=== PATIENT | female | born 1960 | race Caucasian/White ===

== ENCOUNTER 2020-10-07 08:16 | Outpatient (CLI) | payer OTHER, SELFPAY ==
[2020-10-07 08:28] LABS: Basophils Absolute Auto 0.1 K/mm3 (0.0-0.1); Basophils Percent Auto 1.1 % (0.2-1.2); Eosinophils Absolute Auto 0.3 K/mm3 (0-0.3); Eosinophils Percent Auto 4.2 % (0-4.4); Hematocrit 40.9 % (37.0-47.0); Hemoglobin 13.3 g/dL (12.0-15.0); Immature Granulocyte Absolute 0.03 K/mm3 (0.00-0.031); Immature Granulocyte Percent A 0.4 % (0-0.5); Lymphocytes Absolute Auto 1.77 K/mm3 (0.9-3.2); Lymphocytes Percent Auto 22.4 % (18.3-44.2); Mean Corpuscular HGB Conc 32.5 g/dl (32-36); Mean Corpuscular Hemoglobin 29.1 pg (26-34); Mean Corpuscular Volume 89.5 fl (80-100); Mean Platelet Volume 9.5 fl (7.4-10.4); Monocytes Absolute Auto 0.7 K/mm3 (0.1-0.6); Monocytes Percent Auto 8.2 % (2.6-8.5); Neutrophils Percent Auto 63.7 % (45.5-73.1); Platelet Count Result 261 k/mm3 (150-375); Red Blood Count 4.57 M/mm3 (4.2-5.4); Red Cell Distribution Width 13.2 % (11.5-14.5); White Blood Count 7.9 K/mm3 (4.5-10.0)
[2020-10-07 08:44] LABS: CRP 2.4 mg/dL (<1.0)
[2020-10-07 08:53] LABS: Erythrocyte Sedimentation Rate 48 mm/hr (0-20)
[2020-10-07 16:00] LABS: Uric Acid 5.6 mg/dL (2.5-7.5)
[2020-10-07 16:07] LABS: Rheumatoid Factor < 8.6 IU/ML (<12)
== END 2020-10-07 08:17 | disposition home or self-care (01) ==
PROVIDERS: PCP Internal Medicine; Visit Provider Orthopaedic Surgery
DX: M17.0 Bilateral primary osteoarthritis of knee (principal); M06.9 Rheumatoid arthritis, unspecified
CPT/HCPCS: 36415; 84550; 85025; 85652; 86038; 86140; 86430

== ENCOUNTER 2020-10-14 11:59 | Outpatient (CLI) | payer OTHER, SELFPAY ==
--- NOTE | ~2020-10-14 | US_ITS ---
EXAMINATION: US knee asp inj w image LT DATE: 10/14/2020 14:00 INDICATION: Left knee pain TECHNIQUE: The procedure including the risks and benefits was discussed with the patient. Risks discu ssed included bleeding and infection. The patient understood the risks and agreed to proceed. The sk in overlying the suprapatellar pouch of the left knee was prepped and draped in usual sterile fashion . Anesthetic was administered with 1% lidocaine subcutaneously. An 18-gauge spinal needle was advanc ed under continuous ultrasound observation into the hypoechoic suprapatellar pouch. 1.5 mL of clear y ellow fluid was aspirated. The needle was removed and the entry site was cleaned and dressed. Post procedure ultrasound demonstrated no hemorrhage. FINDINGS: Ultrasound images demonstrate minimal fluid in the suprapatellar pouch with successful aspi ration of 1.5 mL for studies as ordered by the referring physician. IMPRESSION: 1. Successful Ultrasound-guided left knee arthrocentesis. Reviewed, dictated and finalized at location A.
[2020-10-14 17:21] LABS: Appearance Synovial Fluid Hazy (Clear); Color Synovial Fluid Yellow (Colorless); Neutrophils Synovial Fluid 2 % (0-25); Nucleated Cell Synovial Fluid 694 /uL (0-200); RBC Synovial Fluid 887 /uL (0-0); Source Synovial Fluid Synovial fluid
[2020-10-14 17:22] LABS: Crystals Synovial Fluid None Seen (None Seen); Lymphocytes Synovial Fluid 93 %; Macrophages Synovial Fluid 5 %
== END 2020-10-14 12:00 | disposition home or self-care (01) ==
LOC: ANHIMG 12:03
PROVIDERS: PCP Internal Medicine; Visit Provider Orthopaedic Surgery
DX: M25.562 Pain in left knee (principal); G89.29 Other chronic pain; Z96.652 Presence of left artificial knee joint
CPT/HCPCS: 20611; 87070; 87075; 87205; 88108; 89051; 89060

== ENCOUNTER 2021-04-21 07:53 | Outpatient (CLI) | payer OTHER, SELFPAY ==
--- NOTE | 2021-04-21 08:00 | ECG_ITS ---
Measurements Intervals [place] Rate: 66 P: 46 OK: 128 QRS: 58 QRSD: 88 T: 34 QT: 369 QTc: 389 Interpretive Statements SINUS RHYTHM BORDERLINE R WAVE PROGRESSION, ANTERIOR LEADS BASELINE ARTIFACT- I, II, AVR BORDERLINE ECG Electronically Signed On 04-21-2021 8:22:12 CDT by Sigifredo Valentin D.O.
== END 2021-04-21 07:54 | disposition home or self-care (01) ==
LOC: ANHSURGERY 07:58
PROVIDERS: PCP Internal Medicine; Visit Provider Orthopaedic Surgery
DX: I10 Essential (primary) hypertension (principal); Z01.818 Encounter for other preprocedural examination; R94.31 Abnormal electrocardiogram [ECG] [EKG]
CPT/HCPCS: 93005

== ENCOUNTER 2021-04-25 00:34 | Day surgery (SDC) | payer OTHER, SELFPAY ==
[2021-04-19 14:42] VITALS: BMI 34.8
--- NOTE | 2021-04-22 15:19 | WPDANESEPPF ---
Anes - Initial Pre Proc Eval Procedure: Operation Date: 04/25/21 13:30 Proposed Procedures p Right Thumb Carpal Metacarpal Arthroplasty - Ankit Dutton MD Date/Time: 04/22/21 15:19 Surgeon: Ankit Dutton MD Pre Op Diagnosis: right thumb cmc arthritis Patient Data Age: 60 Gender: F Height: 1.64 m Weight: 93.44 kg Allergies Allergy/AdvReac Type Severity Reaction Status Date / Time adhesive tape Allergy Intermediate Blister Verified 04/25/21 11:05 codeine Allergy Intermediate Hives Verified 04/25/21 11:05 Sulfa (Sulfonamide Allergy Intermediate Rash Verified 04/25/21 11:05 Antibiotics) Home Medications Medication Instructions Recorded Confirmed Type lisinopril 10 mg tablet 10 mg PO HS 08/13/19 04/25/21 History rosuvastatin 5 mg tablet 5 mg PO HS 08/13/19 04/25/21 History Lactobacillus acidophilus 100 mg 100 mg PO HS 03/15/21 04/25/21 History (1 billion cell) capsule allopurinol 100 mg tablet 100 mg PO DAILY tablet 03/15/21 04/25/21 History cannabidiol 100 mg/mL oral solution 100 mg PO HS 03/15/21 04/25/21 History cholecalciferol (vitamin D3) 50 50 mcg PO HS 03/15/21 04/25/21 History mcg (2,000 unit) capsule fluticasone propionate 50 1 spray INTRANASAL DAILY 03/15/21 04/25/21 History mcg/actuation nasal spray,suspension hydroxychloroquine 200 mg tablet 200 mg PO DAILY tablet 03/15/21 04/25/21 History sertraline 100 mg tablet 100 mg PO HS tablet 03/15/21 04/25/21 History acetaminophen [Tylenol Arthritis] 650 mg PO BID 04/19/21 04/25/21 History diclofenac sodium 2 g TOPICAL QID 04/19/21 04/25/21 History omeprazole 40 mg PO DAILY 04/19/21 04/25/21 History Patient hx anesthesia problems: none Family hx anesthesia problems: none Results Review: All pre-operative results and documents have been reviewed as part of the pre-operative evaluation. [facility] Past Medical History Medical History (Updated 04/22/21 @ 15:26 by Nemesio Wilkerson MD) Anxiety Arthritis of carpometacarpal (CMC) joint of right thumb Chronic narcotic use Chronic pain Depression History of back problems History of gout History of neck problems Hypercholesterolemia Hypertension Obesity Seizure Surgical History Surgical History History of appendectomy 1968- [facility] History of section 1987,1988 History of cholecystectomy 2006 History of knee replacement 2005 L TKA- Dr. Dutton History of pelvic surgery 2017- Dr. Orourke History of shoulder surgery Left-2014 [facility] Family History Family History Mother Family history of osteoarthritis Family history of malignant neoplasm of breast in first degree relative Sibling Family history of diabetes mellitus in first degree relative Father Family history of heart disease in male family member before age 55 Hypertension Social History Social History Smoking status: Never smoker Alcohol intake: current Alcohol use details: VERY RARE Substance use: current Substance use type: marijuana Other substance usage details: CBD OIL, SMOKE Last use: 04/19/21 Living arrangements: with family Additional living arrangements comments: and son Spiritual care concerns: No Anes - Eval Final PreProcedure Day of Procedure 04/22/21 15:19 Patient weight: obese Heart: regular rate and rhythm Lungs: clear to auscultation and normal air movement Airway: Mallampati scale class II Neurological: alert and oriented Last oral intake: >/= 8 hours ASA classification: III Emergent: no Anesthetic plan: proceed Anesthesia type and monitoring: general GIVS and LMA Results Review: All pre-operative results and documents have been reviewed as part of the pre-operative evaluation. Informed Consent: The patient's anesthetic plan and its attendant risks and benefits were discussed with
[2021-04-25] VITALS (8 sets, daily range): BP systolic 114–132; BP diastolic 64–93; PULSE 71–90; RESP 12–18; TEMP 36.2–36.8; O2SAT 96–98
--- NOTE | ~2021-04-25 | XR_ITS ---
EXAMINATION: XR hand RT min 3V DATE: 04/25/2021 15:29 INDICATION: Right thumb postoperative evaluation TECHNIQUE: Posteroanterior, oblique and lateral views of the right hand were obtained. COMPARISON: 05/26/2020 FINDINGS: Fiberglas splint is seen along the radial side of the right hand and wrist which obscures fine bone a nd soft tissue detail. The trapezium has been resected with small amount of lucent postoperative gas at the resection bed and extending proximally along the radial aspect of the wrist. Alignment appears otherwise essentially anatomic. No fracture. Mild to moderate polyarticular osteoarthritis involving multiple metacarpophalangeal and interphalangeal joints. IMPRESSION: 1. Expected postoperative change of trapezial resection for first carpal metacarpal suspension arthro plasty. See procedure note for further detail. 2. Mild to moderate polyarticular osteoarthritis at multiple metacarpophalangeal and interphalangeal joints. Reviewed, dictated and finalized at location A. IMPRESSION: 1. Expected postoperative change of trapezial resection for first carpal metaca rpal suspension arthroplasty. See procedure note for further detail. 2. Mild to moderate polyarticular osteoarthritis at multiple metacarpophalangea l and interphalangeal joints.
[2021-04-25] MEDS: ACETAMINOPHEN 500 MG TABLET 1000 MG PO (11:14)
[2021-04-25] MEDS: LACTATED RINGERS 1,000 ML 30 ML IV CONT ×2 (11:26→14:56)
[2021-04-25] MEDS: KETOROLAC 15 MG/ML VIAL (*BKC) IV PUSH (11:28)
--- NOTE | 2021-04-25 11:49 | WPDHPUPDATE1 ---
History and Physical Update Update Date/Time: 04/25/21 11:49 History and Physical has been reviewed, including an updated exam of the patient. There are NO changes in the patient's condition. Risks, benefits, and alternatives have been discussed and questions answered. Patient agrees to proceed with procedure.
--- NOTE | 2021-04-25 12:32 | WPDANESPNB ---
Anes - Peripheral Nerve Block Date/Time: 04/25/21 12:32 I have discussed with the patient/family/POA the placement of a peripheral nerve block for post-operative pain management, including associated risks, benefits, complications, and side effects. Alternative methods of post-operative analgesia were detailed. Questions were solicited and answers provided to the satisfaction of the patient/family/POA. Time-Out: A pre-procedural Time-Out was completed immediately before starting the procedure and confirmed: Patient Identification, Site, Procedure, Patient Position and the Availability of Requisite Equipment. Clinical Indications: Acute post-operative pain management requested by the operative surgeon. Nerve Block Insertion Note Anes-nerve block: supraclavicular right Patient position: supine Skin prep: chlorhexidine Needle: 22 gauge, stimulating, insulated echogenic needle. Needle length: 80 mm Technique: ultrasound (in plane) Injectate: bupivacaine 0.25% with epi 5 mcg/ml (15cc) Observations: tolerated well Complications: none Procedure start time:: 1250 Procedure end time:: 1255
[2021-04-25] MEDS: ceFAZolin 2 GM/D5W 50 ML 2 GM/50 ML BAG IVPB (13:07)
--- NOTE | 2021-04-25 15:02 | P.OP_ITS ---
Procedure Note - Detailed Date of Procedure 04/25/21 Pre-op Diagnosis right thumb cmc arthritis Post-op Diagnosis same Procedure Performed Right thumb CMC suspension arthroplasty Surgeon Ankit Dutton MD Mobility Architect Manager Rodrigo Anesthesia general and regional Description of Procedure The patient was identified proper site identified. In the preop holding area the anesthesia team performed a right upper extremity block. She was then taken to the operating room transferred to the OR table placing her supine taking care to pad the torso and extremities. After general anesthetic induction and intubation, a nonsterile tourniquet was placed high on the right arm. The right upper extremity was prepped and draped in usual sterile fashion. Extremity was exsanguinated and tourniquet was inflated to 250 mmHg remaining up for approximately 73 minutes. A longitudinal incision was made over the FCR tendon curving radially at the base of the thenar musculature. Subcutaneous tissue bluntly dissected protecting neurovascular structures. A slip of the APL which inserted into the thenar musculature was released and marked for later repair. The thenar musculature was elevated up off of the carpus and the trapezium identified. While protecting the FCR, a trapeziectomy was performed. The a ulnar-sided distally-based 8 cm slip of FCR was then developed hand used to create a sling weaving the tendon slip between the FCR tendon and the APL tendon securing it to itself with 3-0 Ethibond suture. The EPL tendon was advanced on itself and also secured with 3-0 Ethibond suture seating the sling in the trapeziectomy site. This allowed the thumb to sit very nicely in a position of function. The EPB tendon was then reefed also with 3-0 Ethibond taking up the slack in that structure. The wound was irrigated with sterile antibiotic solution. The wrist capsule and thenar musculature were tacked back down with 4-0 Monocryl. The slip of the EPL was reattached to the thenar musculature with 3-0 Ethibond. The skin edges were reapproximated with 4-0 Monocryl and then 4-0 Prolene subcuticular stitch. Steri-Strips were applied. Sterile dressings applied and the tourniquet was released. Well-padded thumb spica splint was fashioned. The patient tolerated procedure well . She was awakened extubated and taken to recovery area in stable condition. There were no known intraoperative complications. Estimated blood loss was negligible. Perioperative antibiotics were administered. Estimated Blood Loss 1 Tourniquet Time 73 Drains No Packing No Pathology none sent Complications No immediate complications Condition stable Disposition PACU
[2021-04-25] MEDS: fentaNYL CITRATE INJ (*CRX) 100 MCG/2 ML VIAL 25 MCG IV PUSH ×2 (15:13→15:24)
[2021-04-25] MEDS: HYDROcodone/acetaminophen (*CRX) 5-325 MG TABLET 1 TAB PO (16:35)
== END 2021-04-25 16:45 | disposition home or self-care (01) ==
PROVIDERS: PCP Internal Medicine; Visit Provider Orthopaedic Surgery
PROC: (CPT 25447; principal; 2021-04-25 13:30)
DX: M18.11 Unilateral primary osteoarthritis of first carpometacarpal joint, right hand (principal); G89.18 Other acute postprocedural pain; I10 Essential (primary) hypertension; E78.2 Mixed hyperlipidemia; E78.00 Pure hypercholesterolemia, unspecified; E66.9 Obesity, unspecified; Z68.35 Body mass index [BMI] 35.0-35.9, adult; Z96.652 Presence of left artificial knee joint; Z88.2 Allergy status to sulfonamides
CPT/HCPCS: 25447; 64415; 73130; A9270; J0690; J1100; J1885; J2250; J2405; J2704; J3010; J7120

== ENCOUNTER 2021-04-30 16:12 | Inpatient (IN) | payer OTHER, SELFPAY ==
[2021-04-30] VITALS (12 sets, daily range): BP systolic 108–172; BP diastolic 78–110; PULSE 122–148; RESP 14–26; TEMP 36.4–36.6; O2SAT 91–100; BMI 32.3
--- NOTE | ~2021-04-30 | CT_ITS ---
EXAMINATION: CT abdomen pelvis w con DATE: 04/30/2021 18:07 INDICATION: Diffuse abdominal pain, nausea, vomiting TECHNIQUE: Computed tomography (CT) of the abdomen and pelvis was performed with 100 cc Omnipaque 350 intravenous contrast. Automated exposure control and iterative reconstruction technique were employe d. Exam dose: 1197.91 mGy-cm total exam DLP. COMPARISON: 10/25/2014 CT abdomen pelvis FINDINGS: There is mild discoid atelectasis at the middle lobe and dependent lower lobes. Normal heart size. No pericardial or pleural effusion. Small sliding hiatal hernia. Status post cholecystectomy, which likely accounts for the mild bile duct dilatation. No hepatic, spl enic, pancreatic, adrenal or renal space occupying mass lesion. No urinary tract calculus or hydrour eteronephrosis. Normal caliber of the abdominal aorta. No intraperitoneal or retroperitoneal or pelvic mass lesion o r lymphadenopathy. Fluid and liquid stool and air fluid levels of the colon and mild left colon wall thickening and maryann colic fat stranding, suggesting nonspecific colitis, possibly infectious or inflammatory. There is diverticulosis of the sigmoid colon. No bowel obstruction or intraperitoneal free air. Mild compression fracture deformities of T7 and T9. Moderate anterior wedging of L3. Degenerative changes of the thoracic and lumbar spine including severe degenerative disc disease at L3-4. IMPRESSION: Colitis Diverticulosis of sigmoid colon; no CT evidence of diverticulitis No bowel obstruction or free air Small sliding hiatal hernia Status post cholecystectomy Reviewed, dictated and finalized at Location A. Reviewed, dictated and finalized at location A.
--- NOTE | ~2021-04-30 | XR_ITS ---
XR chest 1V portable DATE: 04/30/2021 17:01 INDICATION: Sweats. Weakness. Nausea and vomiting. Hypertension. TECHNIQUE: Portable AP chest on 04/30/2021 at 1653 hours COMPARISON: 04/25/2017 portable AP chest FINDINGS: Normal heart size. Aortic arch calcification. No hilar or mediastinal enlargement. No pulmonary infiltrate or consolidation, pleural effusion or pulmonary vascular congestion or pneumo thorax. There is osteoarthritic change at both glenohumeral joints. Diffuse osteopenia. There is mild dextroscoliosis of the thoracic spine IMPRESSION: No active cardiac pulmonary disease Aortic atherosclerosis Reviewed, dictated and finalized at location A.
--- NOTE | 2021-04-30 16:43 | ECG_ITS ---
Measurements Intervals [place] Rate: 138 P: 65 RI: 129 QRS: 58 QRSD: 86 T: 57 QT: 283 QTc: 430 Interpretive Statements SINUS TACHYCARDIA VENTRICULAR PREMATURE COMPLEX BASELINE ARTIFACT- II, III, AVR, AVL, AVF, V1, V3-V6 ABNORMAL ECG Electronically Signed On 04-30-2021 20:01:35 CDT by Sigifredo Valentin D.O.
--- NOTE | 2021-04-30 16:43 | PC.NURSE ---
Pt clothes cut off per patient request.
--- NOTE | 2021-04-30 16:51 | ED.ABDPAIN ---
HPI - Abdominal Pain General Chief Complaint: Abdominal Pain Stated Complaint: ABD PAIN Time Seen by Provider: 04/30/21 16:30 Source: patient, family and RN notes reviewed Mode of arrival: wheelchair Limitations: clinical condition History of Present Illness HPI narrative: This is a 60 year old female who presents for evaluation of diffuse abdominal pain. Her is at bedside to assist with history. He states patient had right hand surgery earlier this week and she has been taking pain medication. She has been constipated and she has not had bowel movement since her surgery. Today she developed diffuse abdominal pain , and states he found patient this afternoon having multiple episodes bilious vomiting. She states she has been passing gas but no bowel movement. She denies chest pain but she has shortness of breath. She has been taking laxatives. Related Data Home Medications Medication Instructions Recorded Confirmed lisinopril 10 mg tablet 10 mg PO HS 08/13/19 04/30/21 rosuvastatin 5 mg tablet 5 mg PO HS 08/13/19 04/30/21 Lactobacillus acidophilus 100 mg 100 mg PO HS 03/15/21 04/30/21 (1 billion cell) capsule allopurinol 100 mg tablet 100 mg PO DAILY tablet 03/15/21 04/30/21 cannabidiol 100 mg/mL oral solution 100 mg PO HS 03/15/21 04/30/21 cholecalciferol (vitamin D3) 50 50 mcg PO HS 03/15/21 04/30/21 mcg (2,000 unit) capsule fluticasone propionate 50 1 spray INTRANASAL DAILY 03/15/21 04/30/21 mcg/actuation nasal spray,suspension hydroxychloroquine 200 mg tablet 200 mg PO DAILY tablet 03/15/21 04/30/21 sertraline 100 mg tablet 100 mg PO HS tablet 03/15/21 04/30/21 acetaminophen 650 mg PO BID 04/19/21 04/30/21 diclofenac sodium 2 g TOPICAL QID 04/19/21 04/30/21 omeprazole 40 mg PO DAILY 04/19/21 04/30/21 Allergies Allergy/AdvReac Type Severity Reaction Status Date / Time adhesive tape Allergy Intermediate Blister Verified 04/30/21 20:31 codeine Allergy Intermediate Hives Verified 04/30/21 20:31 Sulfa (Sulfonamide Allergy Intermediate Rash Verified 04/30/21 20:31 Antibiotics) Review of Systems Review of Systems: All systems reviewed & are unremarkable except as noted in HPI and below Constitutional: Constitutional: Denies chills, Denies fever(s) and Reports weakness Cardiovascular: Cardiovascular: Denies chest pain Respiratory: Respiratory: Denies cough and Reports dyspnea Gastrointestinal: Gastrointestinal: Reports abdominal pain, Reports constipation, Reports nausea and Reports vomiting Genitourinary: Genitourinary: Denies hematuria, Denies dysuria and Denies flank pain Neurologic: Denies headache(s) [facility] Past Medical History Medical History Anxiety Chronic narcotic use Chronic pain Depression History of back problems History of gout History of neck problems Hypercholesterolemia Hypertension Obesity Seizure Surgical History Surgical History Arthritis of carpometacarpal (CMC) joint of right thumb Right thumb CMC suspension arthroplasty April 25, 2021 History of appendectomy 1968- [facility] History of section 1987,1988 History of cholecystectomy 2006 History of knee replacement 2005 L TKA- Dr. Dutton History of pelvic surgery 2017- Dr. Orourke History of shoulder surgery Left-2014 [facility] Family History Family History Mother Family history of osteoarthritis Family history of malignant neoplasm of breast in first degree relative Sibling Family history of diabetes mellitus in first degree relative Father Family history of heart disease in male family member before age 55 Hypertension Social History Social History Smoking status: Never smoker Alcohol intake: current Alcohol use details: VERY RARE Substance
[2021-04-30] MEDS: ONDANSETRON INJ 4 MG/2 ML VIAL IV PUSH (17:07)
[2021-04-30] MEDS: LACTATED RINGERS 1,000 ML 999 ML IV CONT ×2 (17:19→17:20)
[2021-04-30 17:20] LABS: Basophils Absolute Auto 0.1 K/mm3 (0.0-0.1); Basophils Percent Auto 0.6 % (0.2-1.2); Eosinophils Absolute Auto 0.1 K/mm3 (0-0.3); Eosinophils Percent Auto 0.5 % (0-4.4); Hematocrit 54.4 % (37.0-47.0); Hemoglobin 17.7 g/dL (12.0-15.0); Immature Granulocyte Absolute 0.12 K/mm3 (0.00-0.031); Immature Granulocyte Percent A 0.6 % (0-0.5); Lymphocytes Absolute Auto 2.58 K/mm3 (0.9-3.2); Lymphocytes Percent Auto 13.2 % (18.3-44.2); Mean Corpuscular HGB Conc 32.5 g/dl (32-36); Mean Corpuscular Hemoglobin 29.8 pg (26-34); Mean Corpuscular Volume 91.7 fl (80-100); Mean Platelet Volume 10.6 fl (7.4-10.4); Monocytes Absolute Auto 0.3 K/mm3 (0.1-0.6); Monocytes Percent Auto 1.7 % (2.6-8.5); Neutrophils Absolute Auto 16.3 K/mm3 (1.3-6.7); Neutrophils Percent Auto 83.4 % (45.5-73.1); Platelet Count Result 377 k/mm3 (150-375); Red Blood Count 5.93 M/mm3 (4.2-5.4); Red Cell Distribution Width 12.9 % (11.5-14.5); White Blood Count 19.5 K/mm3 (4.5-10.0)
[2021-04-30 17:32] LABS: Ammonia < 9 umol/L (9-30); Lipase 478 U/L (23-300); Magnesium 2.8 mg/dL (1.6-2.3)
[2021-04-30 17:34] LABS: Albumin Level 4.6 g/dL (3.5-5.1); Alkaline Phosphatase 477 U/L (38-126); Anion Gap 20 mmol/L (8-16); Aspartate Amino Transferase 39 U/L (14-36); Bilirubin,Total 0.8 mg/dL (0.2-1.3); Blood Urea Nitrogen 19 mg/dL (7-17); Calcium 10.6 mg/dL (8.4-10.2); Carbon Dioxide 17 mmol/L (22-30); Chloride 103 mmol/L (98-107); Estimated CRCL calculation 37 ml/min; Estimated Glomerular Filt Rate 33; Glucose 281 mg/dL (65-110); Potassium 3.6 mmol/L (3.4-5.0); Sodium 140 mmol/L (137-145)
[2021-04-30 17:36] LABS: Lactic Acid Reflex 7.9 mmol/L (0.7-2.1)
[2021-04-30 17:37] LABS: Partial Thromboplastin Time 24.4 SECONDS (22.3-36.8); Prothrombin Time 13.1 Seconds (11.1-14.7)
[2021-04-30 17:40] LABS: Alveolar/Arterial O2 Gradient 79.3 mmHg; Base Excess ABG -9.6 mEq/l (+/-2.0); Carboxyhemoglobin 0.9 % THb (0-2.0); Fractional Inspired Oxygen 28 %; HCO3 ABG 15.7 mEq/l (22.0-26.0); Methemoglobin ABG 0.4 %THb (0-1.5); Oxygen Content ABG 21.9 %vol (16.0-22.0); Oxyhemoglobin 93.2 % THb (90.0-100.0); PCO2 ABG 33.1 mmHg (35.0-45.0); PO2 ABG 81.3 mmHg (80.0-100.0); Reduced Hemoglobin 5.5 %THb (0-5.0); Total Hemoglobin 16.7 g/dL (12.0-18.0)
[2021-04-30 17:41] LABS: Device NASAL CANNULA; Site Drawn RIGHT BRACHIAL; pH ABG 7.293 (7.350-7.450)
[2021-04-30 17:49] LABS: Alanine Aminotransferase 30 U/L (4-35); Troponin I 0.036 ng/mL (0.000-0.034)
[2021-04-30] MEDS: PROMETHAZINE HCL 25 MG/ML AMPUL 12.5 MG IV PUSH ×2 (18:27→20:24)
[2021-04-30] MEDS: SODIUM CHLORIDE 0.9% IV 1,000 ML 999 ML IV CONT (18:33)
[2021-04-30 18:34] LABS: Glucose Point of Care 192 mg/dl (65-105)
[2021-04-30 18:39] LABS: Add Urine Microscopic? YES; Appearance Urine Clear (Clear); Bilirubin Urine Negative (Negative); Blood Urine Negative (Negative); Color Urine Yellow (Yellow); Glucose Urine UA Negative (Negative); Ketones Urine Negative (Negative); Leukocyte Esterase Ur Negative LEU/UL (Negative); Mucus Urine Rare /lpf; Nitrate Urine Negative (Negative); Protein Urine 2+ mg/dL (Negative); Specific Grav Ur 1.016 (1.001-1.035); Squamous Epithelial Cell Urine Rare /hpf (Few); Urobilinogen Urine Negative mg/dL (<2.0); WBC Urine 0-3 /hpf
--- NOTE | 2021-04-30 19:25 | PC.NURSE ---
Assumed care of pt at this time. Pt alert and upright on stretcher, requesting another blanket. Pt and family updated on POC.
[2021-04-30 20:18] LABS: Reflex Lactic Acid Yes or No Add Lactic
[2021-04-30] MEDS: HYDROmorphone HCL INJ (*CRX) 1 MG/ML SYR 0.5 MG IV PUSH (20:20)
--- NOTE | 2021-04-30 20:27 | PM.IMHP ---
H&P: HPI History of Present Illness Date/Time: 04/30/21 20:27 Chief Complaint: Abdominal pain Narrative: 60-year-old female with a past medical history of rheumatoid arthritis, hypertension, hyperlipidemia and gout who presented to the ER with severe abdominal pain since the . The patient had had a right thumb suspension arthropathy performed 04/25/2021. She had been taking pain medications since the time of surgery and was subsequently constipated. She had not had a bowel movement since before her thumb surgery. Subsequently developed some abdominal distension and discomfort. Today she developed diffuse abdominal pain that acutely worsened over the last 24 hours. The pain is severe in intensity and is worse with palpation of her abdomen. The abdominal pain was accompanied by multiple episodes of bilious emesis that started today. She continues to have multiple episodes of dry heaves and vomiting in the ER. She denies any fevers or chills. Her reports that the patient had been confused earlier in the day but he feels that her confusion has resolved after IV fluids she received in the ER. She reports that she is still having flatulence. She took 4 different laxatives over the last 24 hours without improvement in her symptoms. On arrival to the ER should markedly tachycardic and had some mild tachypnea. She denies any chest pain or shortness of breath. She has not had any recent ill contacts. She has not had any recent travel. She did not receive any pre or postop antibiotics. She had had decreased appetite for the last several days. She received the [employer] COVID vaccine in August. Review of Systems Review of Systems: 12 systems were reviewed with pertinent positives and negatives per HPI. Except as documented in the HPI, all other systems were reviewed and are negative. [facility] Past Medical History Medical History (Updated 05/01/21 @ 02:36 by Grecia Mak DO) Anxiety Chronic narcotic use She reports that she has not had chronic narcotic since he October 2020 Chronic pain Depression Gout History of back problems History of neck problems Hypercholesterolemia Hypertension Obesity Seizure in childhood Surgical History Surgical History Arthritis of carpometacarpal (CMC) joint of right thumb Right thumb CMC suspension arthroplasty April 25, 2021 History of appendectomy 1968- [facility] History of section 1987,1988 History of cholecystectomy 2006 History of knee replacement 2004 L TKA- Dr. Dutton History of pelvic surgery 2017- Dr. Orourke History of shoulder surgery Left-2015 [facility] Family History Family History Mother Family history of osteoarthritis Family history of malignant neoplasm of breast in first degree relative Sibling Family history of diabetes mellitus in first degree relative Father Family history of heart disease in male family member before age 55 Hypertension Social History Social History (Updated 05/01/21 @ 02:35 by Grecia Mak DO) Social History: She lives with her of 41 years and her son. She has total of 2 sons and 1 daughter. She is a retired process improvement specialist. Code status: Full code Surrogate decision maker: Smoking status: Never smoker Alcohol intake: current Alcohol use details: VERY RARE Substance use: current Substance use type: marijuana and opiates Other substance usage details: daily Last use: 04/19/21 Additional living arrangements comments: and son Spiritual care concerns: Yes Meds Home Medications and Allergies Home Medications Medication Instructions Recorded Confirmed Type lisinopril 10 mg tablet 10 mg PO HS 08/13/19 04/25/21 History rosuvastatin 5 mg tablet 5 mg PO HS 08/13/19 04/25/21 History Lactobacillus acidophilus 100 mg 100 mg PO
--- NOTE | 2021-04-30 21:15 | PC.NURSE ---
This RN attempted to insert NG tube. 16g tube was placed in right nare with bile return, but pt did not tolerate procedure and pulled tube out before this RN was able to secure it. Pt refused 2nd attempt.
--- NOTE | 2021-04-30 21:35 | ADMGEN ---
This patient, Jodie Valentin, was admitted to Intensive Care Unit-5. Patient/family oriented to hospital policies and general routines including ID bracelet, bed and alarms, visiting hours, pain management, procedures, bathroom and other care routines, personal items, smoking policy, room service/diet, and visiting hours. Information on how to activate the Rapid Response Team has been discussed. Patient/Family are encouraged to report perceived risks to care and to ask questions if they do not understand what they are told or what they should do.
[2021-04-30] MEDS: SODIUM CHLORIDE 0.9% IV 1,000 ML 200 ML IV CONT (21:49)
[2021-04-30 22:12] LABS: Lactic Acid 3.6 mmol/L (0.7-2.1)
[2021-04-30 22:50] LABS: Troponin I 0.415 ng/mL (0.000-0.034)
[2021-05-01] VITALS (15 sets, daily range): BP systolic 119–166; BP diastolic 62–103; PULSE 114–145; RESP 12–22; TEMP 36.8–37.1; O2SAT 92–96
[2021-05-01] MEDS: SODIUM CHLORIDE 0.9% IV 1,000 ML 999 ML IV CONT (00:01)
--- NOTE | 2021-05-01 01:00 | PC.NURSE ---
Daylight Savings Time For Daylight Savings Time Ending in the Fall - Clocks are moved back. For Daylight Savings Time Beginning in the Spring - Clocks are moved ahead. For [facility], the time of change occurs at 0200 hrs. Time is taken from the room server. This entry on the patient's chart recognizes the change in time reflected during documentation. Example: 2 entries for vital signs may be charted for 0200 hrs.
[2021-05-01] MEDS: HYDROmorphone HCL INJ (*CRX) 1 MG/ML SYR IV PUSH ×3 (01:52→19:51)
[2021-05-01 03:15] LABS: Hematocrit 48.9 % (37.0-47.0); Hemoglobin 16.1 g/dL (12.0-15.0); Mean Corpuscular HGB Conc 32.9 g/dl (32-36); Mean Corpuscular Hemoglobin 30.2 pg (26-34); Mean Corpuscular Volume 91.7 fl (80-100); Mean Platelet Volume 10.5 fl (7.4-10.4); Platelet Count Result 273 k/mm3 (150-375); Red Blood Count 5.33 M/mm3 (4.2-5.4); Red Cell Distribution Width 13.4 % (11.5-14.5); White Blood Count 28.6 K/mm3 (4.5-10.0)
[2021-05-01] MEDS: SODIUM CHLORIDE 0.9% IV 1,000 ML 200 ML IV CONT (03:19)
[2021-05-01 03:32] LABS: Alanine Aminotransferase 19 U/L (4-35); Albumin Level 3.7 g/dL (3.5-5.1); Alkaline Phosphatase 386 U/L (38-126); Anion Gap 10 mmol/L (8-16); Aspartate Amino Transferase 32 U/L (14-36); Bilirubin,Total 0.5 mg/dL (0.2-1.3); Blood Urea Nitrogen 28 mg/dL (7-17); Calcium 8.5 mg/dL (8.4-10.2); Carbon Dioxide 19 mmol/L (22-30); Chloride 111 mmol/L (98-107); Estimated CRCL calculation 34 ml/min; Estimated Glomerular Filt Rate 30; Glucose 151 mg/dL (65-110); Sodium 140 mmol/L (137-145)
[2021-05-01 03:44] LABS: Lactic Acid Reflex 1.7 mmol/L (0.7-2.1)
[2021-05-01 03:56] LABS: Troponin I 0.513 ng/mL (0.000-0.034)
[2021-05-01 04:06] LABS: Band Neutrophils Percent 5 % (0-6); Lymphocytes Absolute Manual 0.85 K/mm3 (1.1-4.5); Monocytes Absolute Manual 1.14 K/mm3 (0.1-0.90); Monocytes Percent Manual 4 % (3-9); Neutrophils Absolute Manual 26.59 K/mm3 (1.7-7.2); Neutrophils Percent Manual 88 % (46-73); Total Cells Counted 100
[2021-05-01 04:07] LABS: Platelet Estimate Adequate (Adequate)
[2021-05-01] MEDS: ONDANSETRON INJ 4 MG/2 ML VIAL IV PUSH (07:04)
[2021-05-01] MEDS: FLUTICASONE PROPIONATE 0.05% NA SPR 16 GM BTL (*BKC) 1 SPRAY NASAL (08:34)
[2021-05-01] MEDS: ENOXAPARIN 40 MG/0.4 ML SYRINGE SUB-Q (08:37)
[2021-05-01 08:54] LABS: Creatine Kinase 100 U/L (30-135)
[2021-05-01 09:11] LABS: Troponin I 0.379 ng/mL (0.000-0.034)
--- NOTE | 2021-05-01 09:27 | PM.CNGS ---
Assessment and Plan Assessment and plan (1) Colitis: Code(s): K52.9 - Noninfective gastroenteritis and colitis, unspecified Status: Acute Assessment and Plan: likely infectious etiology, send stool studies, cx, cont broad spectrum abx, seems like CDiff infection, follow leukocytosis, acidosis resolved, GI consult, exam improved, start clears (2) Severe sepsis: Code(s): A41.9 - Sepsis, unspecified organism; R65.20 - Severe sepsis without septic shock Status: Acute Assessment and Plan: see above, cont abx, still tachycardic but acidosis resolved, cont ICU care History of Present Illness Consult details Consult date: 05/01/21 Reason for consult: abdominal pain Requesting physician: Grecia Mak DO Narrative: Pt is a 60 y/o F presenting to ED c/o severe, diffuse abdominal pain. Pt reports pain has be severe and constant over last 24-48 hours. Pt reports she had R thumb surgery on 04/25 and has been severely constipated since that time. Pt reports progressive abdominal distension, fullness. Pt reports she has placed flatus and taken multiple laxatives s relief. Pt reports N/V over last day. Of note, since admit pt has now began to have several episodes of diarrhea. Review of Systems Constitutional: Constitutional: Denies anorexia, Denies chills, Reports fatigue, Denies fever(s), Reports lethargy, Reports malaise, Reports poor appetite, Reports weakness, Denies weight gain and Denies weight loss Eyes: Eyes: Reports no additional eye complaints ENT: Reports system reviewed and no additional complaints, except as documented Cardiovascular: Cardiovascular: Reports no additional cardiovascular complaints Respiratory: Respiratory: Reports no additional respiratory complaints Gastrointestinal: Gastrointestinal: Reports as per HPI, Reports abdominal pain, Reports bloating, Reports change in stool character, Reports constipation, Reports GI cramping, Reports fecal incontinence, Reports diarrhea, Reports loose stools, Reports nausea and Reports vomiting Genitourinary: Genitourinary: Reports no additional female genitourinary complaints Musculoskeletal: Musculoskeletal: Reports no additional musculoskeletal complaints Integumentary/Breasts: Skin/Breast: Reports system reviewed and no additional complaints, except as docu Neurologic: Reports system reviewed and no additional complaints, except as documented Psychiatric: Psychiatric: Reports no additional psychiatric complaints Endocrine: Endocrine: Reports no additional endocrine complaints Hematologic/Lymphatic: Hematologic/Lymphatic: Reports no additional hematologic/lymphatic complaints Allergic/Immunologic: Allergic/Immunologic: Reports no additional allergic/immunologic complaints PMFSH Past Medical History Medical History Anxiety Chronic narcotic use She reports that she has not had chronic narcotic since he October 2020 Chronic pain Depression Gout History of back problems History of neck problems Hypercholesterolemia Hypertension Obesity Seizure in childhood Surgical History Surgical History Arthritis of carpometacarpal (CMC) joint of right thumb Right thumb CMC suspension arthroplasty April 25, 2021 History of appendectomy 1968- [facility] History of section 1987,1988 History of cholecystectomy 2006 History of knee replacement 2005 L TKA- Dr. Dutton History of pelvic surgery 2016- Dr. Orourke History of shoulder surgery Left-2014 [facility] Family History Family History Mother Family history of osteoarthritis Family history of malignant neoplasm of breast in first degree relative Sibling Family history of diabetes mellitus in first degree relative Father Family history of heart disease in male family member before age 55 Hypertension Social Histor
[2021-05-01] MEDS: ASPIRIN 325 MG TABLET PO (09:39)
[2021-05-01] MEDS: PANTOPRAZOLE 40 MG TABLET PO (09:39)
[2021-05-01] MEDS: SODIUM BICARBONATE 8.4% 150 MEQ in WATER, STERILE FOR INJECTION 950 ML 125 MEQ IV CONT ×2 (09:40→17:58)
--- NOTE | 2021-05-01 10:48 | WPDCNINT ---
Assessment and Plan Assessment and plan (1) Severe sepsis: Code(s): A41.9 - Sepsis, unspecified organism; R65.20 - Severe sepsis without septic shock Status: Acute Assessment and Plan: Secondary to colitis Patient received IV fluid bolus and is on IV fluid maintains She has not required vasopressors at this time Her lactic acid level has cleared She is tachycardic but that may be secondary to abdominal pain and diarrhea Continue close monitoring She is on broad-spectrum antibiotics (2) Colitis: Code(s): K52.9 - Noninfective gastroenteritis and colitis, unspecified Status: Acute Assessment and Plan: Most likely infectious colitis with possibility or diverticulitis IMPRESSION: Colitis Diverticulosis of sigmoid colon; no CT evidence of diverticulitis No bowel obstruction or free air Small sliding hiatal hernia Status post cholecystectomy Patient wished to constipated due to opioids but now having diarrhea after arrival to ICU. Blood cultures have been sent. I will order stool WBC stool culture and stool for C diff Will start p.o. vancomycin for empiric treatment of C diff until results are back Patient was seen by General surgery command conservative management Will consult GI Clear liquid diet (3) Acute kidney injury: Code(s): N17.9 - Acute kidney failure, unspecified Status: Acute Assessment and Plan: Patient presented with elevated creatinine of 1.6-1.7 Baseline creatinine is unknown Continue IV fluids CT did not show any hydronephrosis Check CK Change IV fluids to bicarb of due to worsening hyperchloremia from Monitor electrolytes creatinine and urine output (4) Elevated troponin: Code(s): R77.8 - Other specified abnormalities of plasma proteins Status: Acute Assessment and Plan: Patient denies chest pain and EKG reviewed Elevated troponin likely type 2 non STEMI from stress from sepsis Add aspirin Additional Plan DVT prophylaxis -Lovenox Nutrition -Clear Code Status - Full Code Total Critical Care Time -35 minutes Due to a high probability of clinically significant, life threatening deterioration, the patient required my highest level of preparedness to intervene emergently and I personally spent this critical care time directly and personally managing the patient. This critical care time included obtaining a history; examining the patient; pulse oximetry; ordering and review of studies; arranging urgent treatment with development of a management plan; evaluation of patient's response to treatment; frequent reassessment; and discussions with other providers. It was exclusive of separately billable procedures and treating other patients and teaching time. Please see Assessment and Plan section and the rest of the note for further information on patient assessment and treatment Adult Crossing Guard Consult Note Consult date: 05/01/21 HPI: Jodie Valentin is a 60-year-old female with a past medical history of diverticulosis with last colonoscopy around 10 years ago, rheumatoid arthritis, hypertension, hyperlipidemia and gout who presented to the ER with severe abdominal pain x 2 days. The patient had had a right thumb surgery performed on 04/25/2021. She was prescribed opioid medication for pain. She developed constipation with it did not had any bowel movement until yesterday arrival to ER.. She did not have any nausea vomiting but did try to use laxative as an outpatient with no help. She started having abdominal pain 2 days ago which was diffuse her belly with no radiation. No aggravating or relieving factor. It was 6/10 severe and aching in quality. Patient states that yesterday she started feeling cold and clammy and weak. She also had multiple episodes of nausea and vomiting with no blood associated with. She was feeling weak and hence she came to ER. She denied any chest pain shortness of breath cough fever. In ED patient was found t
[2021-05-01] MEDS: VANCOMYCIN ORAL 125 MG/2.5 ML SYRUP PO ×2 (12:36→17:58)
[2021-05-01 14:09] LABS: Basophils Absolute Auto 0.1 K/mm3 (0.0-0.1); Basophils Percent Auto 0.4 % (0.2-1.2); Eosinophils Absolute Auto 0.1 K/mm3 (0-0.3); Eosinophils Percent Auto 0.4 % (0-4.4); Hematocrit 42.8 % (37.0-47.0); Hemoglobin 13.9 g/dL (12.0-15.0); Immature Granulocyte Absolute 0.24 K/mm3 (0.00-0.031); Lymphocytes Absolute Auto 0.69 K/mm3 (0.9-3.2); Lymphocytes Percent Auto 2.7 % (18.3-44.2); Mean Corpuscular HGB Conc 32.5 g/dl (32-36); Mean Corpuscular Volume 92.4 fl (80-100); Mean Platelet Volume 10.2 fl (7.4-10.4); Monocytes Absolute Auto 1.9 K/mm3 (0.1-0.6); Monocytes Percent Auto 7.5 % (2.6-8.5); Neutrophils Absolute Auto 22.2 K/mm3 (1.3-6.7); Platelet Count Result 211 k/mm3 (150-375); Red Blood Count 4.63 M/mm3 (4.2-5.4); Red Cell Distribution Width 13.8 % (11.5-14.5); White Blood Count 25.2 K/mm3 (4.5-10.0)
[2021-05-01 14:19] LABS: Anion Gap 7 mmol/L (8-16); Blood Urea Nitrogen 28 mg/dL (7-17); Calcium 7.9 mg/dL (8.4-10.2); Carbon Dioxide 24 mmol/L (22-30); Chloride 108 mmol/L (98-107); Estimated CRCL calculation 34 ml/min; Estimated Glomerular Filt Rate 30; Glucose 151 mg/dL (65-110); Sodium 139 mmol/L (137-145)
[2021-05-01 14:36] LABS: Troponin I 0.276 ng/mL (0.000-0.034)
[2021-05-01] MEDS: DICLOFENAC SODIUM 1% 100 GM GEL (*BKC) 1 APPLIC TOPICAL (19:52)
[2021-05-01 21:02] LABS: Troponin I 0.215 ng/mL (0.000-0.034)
[2021-05-02] VITALS (20 sets, daily range): BP systolic 130–168; BP diastolic 55–96; PULSE 87–120; RESP 15–95; TEMP 36.1–36.9; O2SAT 16–98
[2021-05-02] MEDS: VANCOMYCIN ORAL 125 MG/2.5 ML SYRUP PO ×2 (00:07→05:28)
[2021-05-02] MEDS: HYDROmorphone HCL INJ (*CRX) 1 MG/ML SYR IV PUSH ×3 (00:16→20:06)
[2021-05-02] MEDS: SODIUM BICARBONATE 8.4% 150 MEQ in WATER, STERILE FOR INJECTION 950 ML 125 MEQ IV CONT (04:32)
[2021-05-02 04:54] LABS: Hematocrit 37.5 % (37.0-47.0); Hemoglobin 12.2 g/dL (12.0-15.0); Mean Corpuscular HGB Conc 32.5 g/dl (32-36); Mean Corpuscular Hemoglobin 29.3 pg (26-34); Mean Corpuscular Volume 89.9 fl (80-100); Mean Platelet Volume 10.3 fl (7.4-10.4); Platelet Count Result 167 k/mm3 (150-375); Red Blood Count 4.17 M/mm3 (4.2-5.4); Red Cell Distribution Width 13.7 % (11.5-14.5); White Blood Count 20.8 K/mm3 (4.5-10.0)
[2021-05-02 05:06] LABS: Alanine Aminotransferase 15 U/L (4-35); Albumin Level 2.8 g/dL (3.5-5.1); Alkaline Phosphatase 194 U/L (38-126); Anion Gap 3 mmol/L (8-16); Aspartate Amino Transferase 27 U/L (14-36); Bilirubin,Total 0.4 mg/dL (0.2-1.3); Blood Urea Nitrogen 21 mg/dL (7-17); Calcium 7.7 mg/dL (8.4-10.2); Carbon Dioxide 32 mmol/L (22-30); Chloride 100 mmol/L (98-107); Estimated CRCL calculation 45 ml/min; Estimated Glomerular Filt Rate 42; Glucose 118 mg/dL (65-110); Magnesium 2.1 mg/dL (1.6-2.3); Potassium 3.6 mmol/L (3.4-5.0); Sodium 135 mmol/L (137-145)
[2021-05-02] MEDS: LABETALOL HCL INJ 100 MG/20 ML VIAL 20 MG IV PUSH (05:20)
[2021-05-02] MEDS: ACETAMINOPHEN 325 MG TABLET 650 MG PO ×2 (05:20→12:46)
[2021-05-02] MEDS: PANTOPRAZOLE 40 MG TABLET PO (08:33)
[2021-05-02] MEDS: ASPIRIN 325 MG TABLET PO (08:33)
[2021-05-02] MEDS: ENOXAPARIN 40 MG/0.4 ML SYRINGE SUB-Q (08:33)
[2021-05-02] MEDS: FLUTICASONE PROPIONATE 0.05% NA SPR 16 GM BTL (*BKC) 1 SPRAY NASAL (08:34)
--- NOTE | 2021-05-02 09:51 | WPDGICN ---
Assessment and Plan Assessment and plan (1) Colitis: Code(s): K52.9 - Noninfective gastroenteritis and colitis, unspecified Status: Acute Assessment and Plan: colitis noted in left side of her colon evident by CT scan. She may have had sepsis on this basis. Agree with broad-spectrum antibiotics for presumed infectious etiology. She was constipated secondary to narcotics and potentially this contributed as well. Would recommend stool softeners. 7-10 day course of antibiotics. stool cultures are pending and in moderate antibiotics based on these results when available. No signs of ischemia. Elevated lactate level on admission has returned to normal. I would restart diet and advance as tolerated. At this juncture. Defer invasive testing at the present time. (2) Elevated troponin: Code(s): R77.8 - Other specified abnormalities of plasma proteins Status: Acute Assessment and Plan: Troponin noted in the ICU suggesting she may have had a small ND. (3) Arthritis of carpometacarpal (CMC) joint of right thumb: Code(s): M18.11 - Unilateral primary osteoarthritis of first carpometacarpal joint, right hand Status: Resolved Assessment and Plan: patient followed by orthopedics 1 week ago had surgery on her right thumb. GI Consult Note Consult date/time: 05/02/21 09:51 HPI: Jodie Valentin is a 60 year old female I am asked to see because of CT scan consistent with colitis. Patient underwent hand surgery 1 week ago. She was treated with narcotic pain medications. Over the weekend experience rather severe intense abdominal pain which prompted her to go to the emergency room. She had not had bowel movements for several days and had taken laxatives. A CT scan in the emergency room was consistent with left-sided colitis. She did have diverticulosis with no signs of diverticulitis. She was felt to potentially have sepsis. Admitted to the intensive care unit. Elevated troponins were noted. She subsequently has had rather large bowel movement. She continues to have left-sided abdominal pain but has decreased in intensity. She denies any fever. She has had no bleeding. Family history is noncontributory. Review of Systems Review of Systems: All systems reviewed & are unremarkable except as noted in HPI and below PMFSH Past Medical History Medical History Anxiety Chronic narcotic use She reports that she has not had chronic narcotic since he October 2020 Chronic pain Depression Gout History of back problems History of neck problems Hypercholesterolemia Hypertension Obesity Seizure in childhood Surgical History Surgical History Arthritis of carpometacarpal (CMC) joint of right thumb Right thumb CMC suspension arthroplasty April 25, 2021 History of appendectomy 1968- [facility] History of section 1987,1988 History of cholecystectomy 2006 History of knee replacement 2005 L TKA- Dr. Dutton History of pelvic surgery 2017- Dr. Orourke History of shoulder surgery Left-[facility] Family History Family History Mother Family history of osteoarthritis Family history of malignant neoplasm of breast in first degree relative Sibling Family history of diabetes mellitus in first degree relative Father Family history of heart disease in male family member before age 55 Hypertension Social History Social History Social History: She lives with her of 41 years and her son. She has total of 2 sons and 1 daughter. 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 Code status: Full code Surrogate decision maker: Smoking status: Never smoker Alcohol intake: current Alcohol use details: VERY RARE Substance use: current Substanc
--- NOTE | 2021-05-02 12:25 | WPDINTPN ---
Progress Note: A&P Assessment and Plan (1) Severe sepsis: Code(s): A41.9 - Sepsis, unspecified organism; R65.20 - Severe sepsis without septic shock Status: Acute Assessment and Plan: Secondary to colitis Patient received IV fluid bolus and is on IV fluid maintains Lactic acid has normalized, white blood cell count is trending down She is tachycardic but that may be secondary to abdominal pain and diarrhea Continue close monitoring She is on broad-spectrum antibiotics (2) Colitis: Code(s): K52.9 - Noninfective gastroenteritis and colitis, unspecified Status: Acute Assessment and Plan: CT scan of the abdomen and pelvis 04/30/2021: Showed diverticulosis of sigmoid colon, no CT evidence of diverticulitis, no bowel obstruction or free air, small sliding hiatal hernia, status post cholecystectomy Patient was constipated due to opioids but now having diarrhea after arrival to ICU. Blood cultures x2 were negative C diff is negative, will start p.o. vancomycin Patient was seen by General surgery, continue conservative management Appreciate GI evaluation, continue antibiotics and supportive care, started on diet (3) Acute kidney injury: Code(s): N17.9 - Acute kidney failure, unspecified Status: Acute Assessment and Plan: Patient presented with elevated creatinine of 1.6-1.7 Baseline creatinine is unknown Continue IV fluids CT did not show any hydronephrosis CK levels within normal limits Will discontinue bicarb infusion, continue to encourage p.o. intake Monitor electrolytes creatinine and urine output (4) Elevated troponin: Code(s): R77.8 - Other specified abnormalities of plasma proteins Status: Acute Assessment and Plan: Patient denies chest pain and EKG reviewed Elevated troponin likely type 2 non STEMI from stress from sepsis Continue Additional Plan DVT prophylaxis -Lovenox Nutrition -heart healthy Code Status - Full Code Total Critical Care Time -33 minutes Due to a high probability of clinically significant, life threatening deterioration, the patient required my highest level of preparedness to intervene emergently and I personally spent this critical care time directly and personally managing the patient. This critical care time included obtaining a history; examining the patient; pulse oximetry; ordering and review of studies; arranging urgent treatment with development of a management plan; evaluation of patient's response to treatment; frequent reassessment; and discussions with other providers. It was exclusive of separately billable procedures and treating other patients and teaching time. Please see Assessment and Plan section and the rest of the note for further information on patient assessment and treatment Subjective Date/time seen: 05/02/21 12:25 Interval history: Reason for consult: Severe sepsis, colitis, acute kidney injury, elevated troponin 05/02/2021: Patient seen and examined the ICU, is currently on room air, hemodynamically stable. States she feels much better but continues to complain of diffuse abdominal pain. C diff is negative. Lactic acid has normalized to 1.7 ( 7.9 on admission). Renal function improving, WBC count trending down. Urine output has been adequate and patient is afebrile Review of Systems Review of Systems: All systems reviewed & are unremarkable except as noted in HPI and below (HPI) Exam Narrative: General: Pt is alert awake and in NAD Lungs/Chest: Trachea central Clear BS B/L, No crackles or wheezing. Cardiac: RRR. Normal S1 S2. No murmurs Circulation: Pedal pulses are intact and symmetrical. Abdomen: Normal bowel sounds. Soft. Mild diffuse tenderness to palpation worse in left flank, no guarding or rigidity Extremities: No clubbing, cyanosis or edema. Warm : Thompson in place Neurologic: Follows commands. Moves all 4 extremities PERRL Skin: No Rash Objective Data Vital Signs Vital S
[2021-05-02] MEDS: ONDANSETRON INJ 4 MG/2 ML VIAL IV PUSH ×2 (13:27→19:56)
[2021-05-02 14:35] LABS: Lipase < 10 U/L (23-300)
--- NOTE | 2021-05-02 15:30 | PM.PNGS ---
Progress Note: A&P Assessment and Plan (1) Colitis: Code(s): K52.9 - Noninfective gastroenteritis and colitis, unspecified Status: Acute Assessment and Plan: Likely an infectious etiology. Some stool studies still pending. C. Diff negative. Clinically improving. WBC coming down. Acidosis resolved. Continue broad-spectrum IV abx. Okay to advance diet as tolerated. (2) Severe sepsis: Code(s): A41.9 - Sepsis, unspecified organism; R65.20 - Severe sepsis without septic shock Status: Acute Assessment and Plan: Resolving, tachycardia improved, acidosis resolved, leukocytosis improving. Continue IV abx. See plan above. Blood cx NGTD. Management per primary service. Okay to move out of ICU from our standpoint. Additional Plan I have discussed the patient's case and plan of care with Dr. Merida. Subjective Subjective Date/Time Seen: 05/02/21 15:30 Review of Systems Review of Systems: All systems reviewed & are unremarkable except as noted in HPI and below Constitutional: Constitutional: Denies chills and Denies fever(s) Exam Const: General: alert and awake Nutritional Appearance: obese Orientation/consciousness: patient oriented x3 Resp: Effort & Inspection: normal respiratory effort Auscultation: clear to auscultation bilaterally Cardio: Rate: regular rate Rhythm: regular rhythm GI: Inspection: other (mildly distended) GI Palp: Yes Soft to palpation, Yes Tenderness to palpation present (GI) (diffusely tender, no focal tenderness, improving per pt), No Guarding due to palpation present (GI), No Hernia present and No Rebound tenderness present Auscultation: Hyperactive bowel sounds present Neuro: General: moves all extremities and no focal motor deficits Extrem: General: normal to inspection and no clubbing, cyanosis or edema Psych: Mental Status: mental status grossly normal Insight: Good insight present (Psych) Judgement: Good judgement present (Psych) Objective Data Vital Signs Vital Signs: Vital Signs - 24 hr 05/01/21 16:00 05/01/21 18:00 05/01/21 20:00 Temperature 98.3 F Pulse Rate 116 H 125 H 126 H Respiratory Rate 22 H 20 18 Blood Pressure 119/72 144/62 H 142/81 H Pulse Oximetry 95 94 95 05/01/21 22:00 05/02/21 00:00 05/02/21 02:00 Temperature 98.5 F Pulse Rate 117 H 120 H 108 H Respiratory Rate 19 18 15 Blood Pressure 146/71 H 157/84 H 132/77 Pulse Oximetry 94 94 96 05/02/21 04:00 05/02/21 05:14 05/02/21 05:16 Temperature Pulse Rate 111 H 105 H 106 H Respiratory Rate 17 17 16 Blood Pressure 168/96 H 164/95 H 162/87 H Pulse Oximetry 92 98 94 05/02/21 05:17 05/02/21 05:18 05/02/21 05:20 Temperature Pulse Rate 107 H 105 H 112 H Respiratory Rate 18 17 Blood Pressure 162/91 H Pulse Oximetry 95 96 05/02/21 05:30 05/02/21 06:00 05/02/21 06:21 Temperature Pulse Rate 100 97 96 Respiratory Rate 22 H 17 Blood Pressure 139/73 Pulse Oximetry 96 95 05/02/21 08:00 05/02/21 10:00 05/02/21 12:00 Temperature 98.2 F Pulse Rate 87 99 92 Respiratory Rate 16 18 Blood Pressure 146/79 H 130/68 Pulse Oximetry 96 91 05/02/21 14:00 Temperature 98.4 F Pulse Rate 97 Respiratory Rate 95 H Blood Pressure 137/55 L Pulse Oximetry 16 L Intake/Output Intake/Output: Intake & Output 04/30/21 05/01/21 05/01/21 05/02/21 00:59 00:59 23:59 23:59 Intake Total 2100 Output Total 750 Balance 1350 Meds/Results Medications: Active Medications Generic Name Dose Route Start Last Admin Trade Name Diana PRN Reason Stop Dose Admin Acetaminophen 650 mg 05/02/21 04:44 05/02/21 12:46 Acetaminophen 325 Mg Tablet PO 650 mg Q6H PRN Administration Mild Pain (1-3) or Fever Allopurinol 100 mg 05/03/21 09:00 Allopurinol 100 Mg Tablet PO DAILY [facility] Aspirin 325 mg 05/01/21 08:20 05/02/21 08:33 Aspirin 325 Mg Tablet PO 325 mg DAILY@0800 [facility] Administration Diclofenac Sodium 1 appl
--- NOTE | 2021-05-02 18:21 | PC.NURSE ---
TRINI tubed to Stephanie, 3rd Med/Surg
[2021-05-02] MEDS: SERTRALINE HCL 50 MG TABLET 100 MG PO (20:07)
[2021-05-02] MEDS: ROSUVASTATIN 5 MG TABLET PO (20:07)
[2021-05-02] MEDS: DICLOFENAC SODIUM 1% 100 GM GEL (*BKC) 1 APPLIC TOPICAL (20:07)
[2021-05-02] MEDS: lisinopriL 10 MG TABLET PO (20:07)
--- NOTE | 2021-05-02 21:36 | PC.NURSE ---
Patient transferred to room 324-1. Report given to Devika TURNER. All belongings, medications and chart transferred with patient.
[2021-05-03] MEDS: ACETAMINOPHEN 325 MG TABLET 650 MG PO (00:02)
[2021-05-03] MEDS: HYDROmorphone HCL INJ (*CRX) 1 MG/ML SYR IV PUSH (00:35)
[2021-05-03 06:00] VITALS: BP 136/72; PULSE 84; RESP 18; TEMP 36.2; O2SAT 94
[2021-05-03 06:38] LABS: Basophils Percent Auto 0.3 % (0.2-1.2); Eosinophils Absolute Auto 0.1 K/mm3 (0-0.3); Eosinophils Percent Auto 0.9 % (0-4.4); Hematocrit 34.4 % (37.0-47.0); Hemoglobin 10.9 g/dL (12.0-15.0); Immature Granulocyte Absolute 0.49 K/mm3 (0.00-0.031); Immature Granulocyte Percent A 3.3 % (0-0.5); Lymphocytes Absolute Auto 0.82 K/mm3 (0.9-3.2); Lymphocytes Percent Auto 5.6 % (18.3-44.2); Mean Corpuscular HGB Conc 31.7 g/dl (32-36); Mean Corpuscular Hemoglobin 29.3 pg (26-34); Mean Corpuscular Volume 92.5 fl (80-100); Mean Platelet Volume 10.4 fl (7.4-10.4); Monocytes Absolute Auto 0.7 K/mm3 (0.1-0.6); Neutrophils Absolute Auto 12.5 K/mm3 (1.3-6.7); Neutrophils Percent Auto 84.9 % (45.5-73.1); Platelet Count Result 146 k/mm3 (150-375); Red Blood Count 3.72 M/mm3 (4.2-5.4); Red Cell Distribution Width 13.3 % (11.5-14.5); White Blood Count 14.7 K/mm3 (4.5-10.0)
[2021-05-03 06:50] LABS: Lactic Acid Reflex 0.8 mmol/L (0.7-2.1)
[2021-05-03 06:51] LABS: Alanine Aminotransferase 16 U/L (4-35); Albumin Level 2.9 g/dL (3.5-5.1); Alkaline Phosphatase 137 U/L (38-126); Anion Gap 3 mmol/L (8-16); Aspartate Amino Transferase 32 U/L (14-36); Bilirubin,Total 0.3 mg/dL (0.2-1.3); Blood Urea Nitrogen 14 mg/dL (7-17); Calcium 8.1 mg/dL (8.4-10.2); Carbon Dioxide 33 mmol/L (22-30); Chloride 100 mmol/L (98-107); Estimated CRCL calculation 48 ml/min; Estimated Glomerular Filt Rate 46; Glucose 95 mg/dL (65-110); Magnesium 2.1 mg/dL (1.6-2.3); Phosphorus 2.7 mg/dL (2.5-4.5); Potassium 3.4 mmol/L (3.4-5.0); Sodium 136 mmol/L (137-145)
--- NOTE | 2021-05-03 07:13 | WPDGIPROGNO ---
Progress Note: A&P Assessment and Plan (1) Colitis: Code(s): K52.9 - Noninfective gastroenteritis and colitis, unspecified Status: Acute Assessment and Plan: Patient appears to have colitis by her CT scan. Infectious colitis most likely. Symptoms did occur after narcotic use and bout of constipation. Would suggest broad-spectrum antibiotics presently. Await stool cultures. Try to limit narcotics if at all possible. Defer colonoscopy unless symptoms persist long-term. Advance diet as tolerated. (2) Chronic narcotic use: Code(s): F11.90 - Opioid use, unspecified, uncomplicated Status: Acute Assessment and Plan: Patient has had chronic narcotic use. Would recommend trying to limit this. Perhaps alternate pain medicines would be feasible at this time. (3) Arthritis of carpometacarpal (CMC) joint of right thumb: Code(s): M18.11 - Unilateral primary osteoarthritis of first carpometacarpal joint, right hand Status: Resolved Assessment and Plan: Right hand remains in a cast after recent thumb surgery. Continued ortho follow-up for this after discharge. Subjective Date/time seen: 05/03/21 07:13 Patient now on the floor. States she is feeling better but not free of pain. Complains of diffuse abdominal tenderness. Tolerating liquids. Passing soft stools. No bleeding evident. Review of Systems Review of Systems: All systems reviewed & are unremarkable except as noted in HPI and below Exam Narrative: Physical exam reveals patient be alert comfortable at rest lying in bed. HEENT exam reveals no icterus. Right arm hand is in a cast. Lungs are clear. Heart without murmur. Abdomen obese. Bowel sounds are present soft mild diffuse tenderness evident. Objective Data Vital Signs Vital Signs: Vital Signs - 24 hr 05/02/21 08:00 05/02/21 10:00 05/02/21 12:00 Temperature 98.2 F Pulse Rate 87 99 92 Respiratory Rate 16 18 Blood Pressure 146/79 H 130/68 Pulse Oximetry 96 91 05/02/21 14:00 05/02/21 16:00 05/02/21 18:00 Temperature 98.4 F Pulse Rate 97 92 92 Respiratory Rate 95 H Blood Pressure 137/55 L Pulse Oximetry 16 L 05/02/21 19:58 05/02/21 20:05 05/02/21 21:35 Temperature 98.5 F 97 F L Pulse Rate 92 100 Respiratory Rate 18 18 Blood Pressure 138/83 153/83 H Pulse Oximetry 97 94 90 05/03/21 06:00 Temperature 97.1 F L Pulse Rate 84 Respiratory Rate 18 Blood Pressure 136/72 Pulse Oximetry 94 Intake/Output Intake/Output: Intake & Output 05/01/21 05/01/21 05/02/21 05/03/21 00:59 23:59 23:59 23:59 Intake Total 2600 350 Output Total 2350 Balance 250 350 Meds/Results Medications: Active Medications Generic Name Dose Route Start Last Admin Trade Name Freq PRN Reason Stop Dose Admin Acetaminophen 650 mg 05/02/21 04:44 05/03/21 00:02 Acetaminophen 325 Mg Tablet PO 650 mg Q6H PRN Administration Mild Pain (1-3) or Fever Allopurinol 100 mg 05/03/21 09:00 Allopurinol 100 Mg Tablet PO DAILY [facility] Aspirin 325 mg 05/01/21 08:20 05/02/21 08:33 Aspirin 325 Mg Tablet PO 325 mg DAILY@0800 [facility] Administration Diclofenac Sodium 1 applic 05/01/21 09:00 05/02/21 20:07 Diclofenac Sodium 1% 100 Gm Gel (*Bkc) TOPICAL 1 applic QID [facility] Administration Enoxaparin Sodium 40 mg 05/01/21 09:00 05/02/21 08:33 Enoxaparin 40 Mg/0.4 Ml Syringe SUB-Q 40 mg DAILY [facility] Administration Fluticasone Propionate 1 spray 05/01/21 09:00 05/02/21 08:34 Fluticasone Propionate 0.05% Na Spr 16 Gm Btl (*Bkc) NASAL 1 spray DAILY [facility] Administration Hydromorphone HCl 1 mg 05/01/21 01:26 METER READING CLERK 05/03/21 00:35 Hydromorphone Hcl Inj (*Crx) 1 Mg/Ml Syr IV PUSH 1 mg Q3H PRN Administration Pain Rated 7-10 Piperacillin/Tazobactam/Dextrose 3.375 gm in 50 mls @ 100 mls/hr 05/03/21 06:00 05/03/21 06:32 Zosyn 3.375 Gm/D5w 50ml Pm IVPB Infused Q6HR [facility] Infusion L
[2021-05-03] MEDS: ONDANSETRON INJ 4 MG/2 ML VIAL IV PUSH ×2 (08:51→16:33)
[2021-05-03] MEDS: DICLOFENAC SODIUM 1% 100 GM GEL (*BKC) 1 APPLIC TOPICAL ×2 (08:52→21:31)
[2021-05-03] MEDS: FLUTICASONE PROPIONATE 0.05% NA SPR 16 GM BTL (*BKC) 1 SPRAY NASAL (08:52)
--- NOTE | 2021-05-03 09:49 | PM.PNGS ---
Progress Note: A&P Assessment and Plan (1) Colitis: Code(s): K52.9 - Noninfective gastroenteritis and colitis, unspecified Status: Acute Assessment and Plan: Likely an infectious etiology. C. Diff negative. Clinically improving. WBC continues to trend down today. Acidosis resolved. Continue broad-spectrum IV abx. Tolerating heart healthy diet. Encouraged ambulating and increasing activity today. (2) Severe sepsis: Code(s): A41.9 - Sepsis, unspecified organism; R65.20 - Severe sepsis without septic shock Status: Acute Assessment and Plan: Resolving, tachycardia improved, acidosis resolved, leukocytosis improving. Continue IV abx. See plan above. Blood cx NGTD. Management per primary service. Additional Plan I have discussed the plan of care with Dr. Merida. Subjective Subjective Date/Time Seen: 05/03/21 09:49 Patient reports: no new complaints, feels better, pain is less, tolerating a regular diet, flatus, diarrhea, nausea and afebrile Interval history: Patient seen and examined this morning. She reports overall feeling much better again today in comparison to yesterday. She reports her generalized abdominal pain is improving. She is still having some nausea, but no vomiting. She has been able to tolerate some, but minimal, oral intake. She feels it is mostly due to poor appetite but also having some issues with some residual nausea. Continues to have diarrhea, reporting more than 10 bowel movements in the last 24 hours. Still no blood or mucus in her stools that she notices. No other complaints at this time. Review of Systems Review of Systems: All systems reviewed & are unremarkable except as noted in HPI and below Cardiovascular: Cardiovascular: Denies chest pain and Denies leg edema Respiratory: Respiratory: Reports cough (Productive clear phlegm, same as yesterday) and Denies dyspnea Gastrointestinal: Gastrointestinal: Reports as per HPI and Reports no additional gastrointestinal complaints Exam Const: General: no acute distress, alert and awake Nutritional Appearance: obese Orientation/consciousness: patient oriented x3 Resp: Effort & Inspection: normal respiratory effort Auscultation: clear to auscultation bilaterally Cardio: Rate: regular rate Rhythm: regular rhythm GI: Inspection: other (mildly distended) GI Palp: Yes Soft to palpation, Yes Tenderness to palpation present (GI) (Diffusely tender, no focal tenderness), No Guarding due to palpation present (GI) and No Rebound tenderness present Auscultation: normal bowel sounds Neuro: General: moves all extremities and no focal motor deficits Extrem: General: normal to inspection and no edema Psych: Mental Status: mental status grossly normal Insight: Good insight present (Psych) Judgement: Good judgement present (Psych) Objective Data Vital Signs Vital Signs: Vital Signs - 24 hr 05/02/21 10:00 05/02/21 12:00 05/02/21 14:00 Temperature 98.4 F Pulse Rate 99 92 97 Respiratory Rate 18 95 H Blood Pressure 130/68 137/55 L Pulse Oximetry 91 16 L 05/02/21 16:00 05/02/21 18:00 05/02/21 19:58 Temperature 98.5 F Pulse Rate 92 92 92 Respiratory Rate 18 Blood Pressure 138/83 Pulse Oximetry 97 05/02/21 20:05 05/02/21 21:35 05/03/21 06:00 Temperature 97 F L 97.1 F L Pulse Rate 100 84 Respiratory Rate 18 18 Blood Pressure 153/83 H 136/72 Pulse Oximetry 94 90 94 Intake/Output Intake/Output: Intake & Output 05/01/21 05/01/21 05/02/21 05/03/21 00:59 23:59 23:59 23:59 Intake Total 2600 692 Output Total 2350 Balance 250 692 Meds/Results Medications: Active Medications Generic Name Dose Route Start Last Admin Trade Name Freq PRN Reason Stop Dose Admin Acetaminophen 650 mg 05/02/21 04:44 05/03/21 00:02 Acetaminophen 325 Mg Tablet PO 650 mg Q6H PRN Administration Mild Pain (1-3) or Fever Allopurinol 100 mg 05/03/21 09:00 Allopurinol 100 Mg T
--- NOTE | 2021-05-03 11:06 | PM.IMPN ---
Progress Note: A&P Assessment and Plan (1) Severe sepsis: Code(s): A41.9 - Sepsis, unspecified organism; R65.20 - Severe sepsis without septic shock Status: Acute Assessment and Plan: Secondary to colitis Patient received IV fluid bolus and is on IV fluid maintains Pt is on iv zosyn WCC improving (2) Colitis: Code(s): K52.9 - Noninfective gastroenteritis and colitis, unspecified Status: Acute Assessment and Plan: CT scan of the abdomen and pelvis 04/30/2021: Showed diverticulosis of sigmoid colon, no CT evidence of diverticulitis, no bowel obstruction or free air, small sliding hiatal hernia, status post cholecystectomy Blood cultures x2 were negative C diff is negative, stools culture pending General surgery, continue conservative management GI evaluation, continue antibiotics and supportive care Pt is on iv zosyn, wcc coming down nicely. (3) Acute kidney injury: Code(s): N17.9 - Acute kidney failure, unspecified Status: Acute Assessment and Plan: Patient presented with elevated creatinine of 1.6-1.7 Continue fluid hydration pt looks dry today (4) Elevated troponin: Code(s): R77.8 - Other specified abnormalities of plasma proteins Status: Acute Assessment and Plan: Patient denies chest pain and EKG reviewed Elevated troponin likely from sepsis Subjective Date/time seen: 05/03/21 11:06 Interval history: Pt admitted with Severe sepsis, colitis, acute kidney injury, elevated troponin Pt was transferred out of icu yesterday, stable on the floor still having diarrhea episodes. Otherwise feels better, bp is good, Wcc coming down, BC are negative, stool cultures are still pending, cdiff is negative. Review of Systems Review of Systems: All systems reviewed & are unremarkable except as noted in HPI and below Exam Const: General: cooperative and other (Pt looks bit dry ) Orientation/consciousness: oriented to person HENMT: Head: normal to inspection Resp: Effort & Inspection: no respiratory distress Auscultation: no rhonchi Cardio: Rate: regular rate Rhythm: regular rhythm GI: Inspection: normal to inspection GI Palp: No abdominal tenderness, No Guarding due to palpation present (GI) and No Hepatomegaly present Auscultation: normal bowel sounds Neuro: General: oriented to person Objective Data Vital Signs Vital Signs: Vital Signs - 24 hr 05/02/21 12:00 05/02/21 14:00 05/02/21 16:00 Temperature 36.9 C Pulse Rate 92 97 92 Respiratory Rate 95 H Blood Pressure 137/55 L Pulse Oximetry 16 L 05/02/21 18:00 05/02/21 19:58 05/02/21 20:05 Temperature 36.9 C Pulse Rate 92 92 Respiratory Rate 18 Blood Pressure 138/83 Pulse Oximetry 97 94 05/02/21 21:35 05/03/21 06:00 Temperature 36.1 C L 36.2 C L Pulse Rate 100 84 Respiratory Rate 18 18 Blood Pressure 153/83 H 136/72 Pulse Oximetry 90 94 Intake/Output Intake/Output: Intake & Output 05/01/21 05/01/21 05/02/21 05/03/21 00:59 23:59 23:59 23:59 Intake Total 2600 692 Output Total 2350 Balance 250 692 Meds/Results Medications: Active Medications Generic Name Dose Route Start Last Admin Trade Name Freq PRN Reason Stop Dose Admin Acetaminophen 650 mg 05/02/21 04:44 05/03/21 00:02 Acetaminophen 325 Mg Tablet PO 650 mg Q6H PRN Administration Mild Pain (1-3) or Fever Allopurinol 100 mg 05/03/21 09:00 Allopurinol 100 Mg Tablet PO DAILY [facility] Aspirin 325 mg 05/01/21 08:20 05/02/21 08:33 Aspirin 325 Mg Tablet PO 325 mg DAILY@0800 [facility] Administration Diclofenac Sodium 1 applic 05/01/21 09:00 05/03/21 08:52 Diclofenac Sodium 1% 100 Gm Gel (*Bkc) TOPICAL 1 applic QID [facility] Administration Enoxaparin Sodium 40 mg 05/01/21 09:00 05/02/21 08:33 Enoxaparin 40 Mg/0.4 Ml Syringe SUB-Q 40 mg DAILY [facility] Administration Fluticasone Propionate 1 spray 05/01/21 09:00 05/03/21 0
--- NOTE | 2021-05-03 11:57 | PC.NURSE ---
On 05/03/21, the student, [Kasia Lynn ], provided care and completed [facility] documentation on this patient. I have reviewed the student's documentation and agree with the findings.
[2021-05-03] MEDS: ASPIRIN 325 MG TABLET PO (12:25)
[2021-05-03] MEDS: allopurinoL 100 MG TABLET PO (12:25)
[2021-05-03] MEDS: ENOXAPARIN 40 MG/0.4 ML SYRINGE SUB-Q (12:25)
[2021-05-03] MEDS: PANTOPRAZOLE 40 MG TABLET PO (12:25)
[2021-05-03] MEDS: SODIUM CHLORIDE 0.9% IV 1,000 ML 75 ML IV CONT (12:30)
[2021-05-03 13:55] VITALS: O2SAT 84
[2021-05-03 14:00] VITALS: BP 134/69; PULSE 84; RESP 20; TEMP 36.7; O2SAT 93; O2SAT 96
[2021-05-03] MEDS: LOPERAMIDE HCL 2 MG CAPSULE PO (16:34)
[2021-05-03] MEDS: HYDROcodone/acetaminophen (*CRX) 10-325 MG TABLET 1 TAB PO (17:13)
[2021-05-03] MEDS: SERTRALINE HCL 50 MG TABLET 100 MG PO (21:30)
[2021-05-03] MEDS: SACCHAROMYCES BOULARDII 250 MG CAPSULE PO (21:31)
[2021-05-03] MEDS: ROSUVASTATIN 5 MG TABLET PO (21:31)
[2021-05-03] MEDS: lisinopriL 10 MG TABLET PO (21:31)
[2021-05-03 21:45] VITALS: BP 118/65; PULSE 83; RESP 18; TEMP 36.3; O2SAT 93
[2021-05-04] MEDS: SODIUM CHLORIDE 0.9% IV 1,000 ML 75 ML IV CONT (00:47)
[2021-05-04] MEDS: ACETAMINOPHEN 325 MG TABLET 650 MG PO ×2 (03:49→18:10)
[2021-05-04 06:00] VITALS: BP 142/68; PULSE 80; RESP 18; TEMP 36.1; O2SAT 94
[2021-05-04 06:31] LABS: Hematocrit 33.6 % (37.0-47.0); Hemoglobin 10.7 g/dL (12.0-15.0); Mean Corpuscular HGB Conc 31.8 g/dl (32-36); Mean Corpuscular Hemoglobin 30.1 pg (26-34); Mean Corpuscular Volume 94.4 fl (80-100); Mean Platelet Volume 11.2 fl (7.4-10.4); Platelet Count Result 148 k/mm3 (150-375); Red Blood Count 3.56 M/mm3 (4.2-5.4); Red Cell Distribution Width 13.2 % (11.5-14.5); White Blood Count 14.1 K/mm3 (4.5-10.0)
[2021-05-04 06:42] LABS: Alanine Aminotransferase 19 U/L (4-35); Albumin Level 2.9 g/dL (3.5-5.1); Alkaline Phosphatase 126 U/L (38-126); Anion Gap 3 mmol/L (8-16); Aspartate Amino Transferase 37 U/L (14-36); Bilirubin,Total 0.3 mg/dL (0.2-1.3); Blood Urea Nitrogen 10 mg/dL (7-17); Calcium 8.3 mg/dL (8.4-10.2); Carbon Dioxide 33 mmol/L (22-30); Chloride 102 mmol/L (98-107); Estimated CRCL calculation 52 ml/min; Estimated Glomerular Filt Rate 50; Glucose 84 mg/dL (65-110); Magnesium 2.3 mg/dL (1.6-2.3); Potassium 3.6 mmol/L (3.4-5.0); Sodium 138 mmol/L (137-145)
--- NOTE | 2021-05-04 07:50 | WPDGIPROGNO ---
Progress Note: A&P Assessment and Plan (1) Colitis: Code(s): K52.9 - Noninfective gastroenteritis and colitis, unspecified Status: Acute Assessment and Plan: Colitis appears to be resolving clinically. Abdomen is much softer. Continues to have diarrhea with no bleeding. Recommend completing a 7-10 day course of antibiotics. Will continue intravenous antibiotics 1 more day and then change to oral meds. Advance diet as tolerated. Try to get patient of bed somewhat. (2) Chronic narcotic use: Code(s): F11.90 - Opioid use, unspecified, uncomplicated Status: Acute Assessment and Plan: Patient has a history of narcotic use. This likely contributed to the constipation she noted on admission. We discussed trying to limit this which hopefully will be easier now that surgery is been accomplished on her hand. (3) Arthritis of carpometacarpal (CMC) joint of right thumb: Code(s): M18.11 - Unilateral primary osteoarthritis of first carpometacarpal joint, right hand Status: Resolved Assessment and Plan: Patient is status post orthopedic surgery in recovering. orthopedic service will follow up on right hand. Subjective Date/time seen: 05/04/21 07:50 Patient feels much improved today. States abdominal pain is decreased a great deal. Now having diarrhea stools. She tolerating oral intake without difficulty. No bleeding reported. No fever. Review of Systems Review of Systems: All systems reviewed & are unremarkable except as noted in HPI and below Exam Narrative: On physical exam patient is alert. Vital signs stable. HEENT exam reveals no icterus. Right arm is in a cast. Lungs are clear. Heart without murmur. Abdomen is obese bowel sounds are present much softer than yesterday. Mild left lower quadrant discomfort noted. Extremities are without clubbing cyanosis or edema. Objective Data Vital Signs Vital Signs: Vital Signs - 24 hr 05/03/21 13:55 05/03/21 14:00 05/03/21 21:45 Temperature 98.1 F 97.4 F L Pulse Rate 84 83 Respiratory Rate 20 18 Blood Pressure 134/69 118/65 Pulse Oximetry 84 L 96 93 05/04/21 06:00 Temperature 97 F L Pulse Rate 80 Respiratory Rate 18 Blood Pressure 142/68 H Pulse Oximetry 94 Intake/Output Intake/Output: Intake & Output 05/01/21 05/02/21 05/03/21 05/04/21 23:59 23:59 23:59 23:59 Intake Total 2600 1822 1800 Output Total 2350 1200 Balance 250 1822 600 Meds/Results Medications: Active Medications Generic Name Dose Route Start Last Admin Trade Name Freq PRN Reason Stop Dose Admin Acetaminophen 650 mg 05/02/21 04:44 05/04/21 03:49 Acetaminophen 325 Mg Tablet PO 650 mg Q6H PRN Administration Mild Pain (1-3) or Fever Hydrocodone Bitart/Acetaminophen 1 tab 05/03/21 19:20 Hydrocodone/Acetaminophen (*Crx) 5-325 Mg Tablet PO Q6H PRN Pain Rated 7-10 Allopurinol 100 mg 05/03/21 09:00 05/03/21 12:25 Allopurinol 100 Mg Tablet PO 100 mg DAILY [facility] Administration Aspirin 325 mg 05/01/21 08:20 05/03/21 12:25 Aspirin 325 Mg Tablet PO 325 mg DAILY@0800 [facility] Administration Diclofenac Sodium 1 applic 05/01/21 09:00 05/03/21 21:31 Diclofenac Sodium 1% 100 Gm Gel (*Bkc) TOPICAL 1 applic QID [facility] Administration Dicyclomine HCl 20 mg 05/03/21 13:14 Dicyclomine Hcl 10 Mg Capsule PO QID PRN Abdominal Cramping Enoxaparin Sodium 40 mg 05/01/21 09:00 05/03/21 12:25 Enoxaparin 40 Mg/0.4 Ml Syringe SUB-Q 40 mg DAILY [facility] Administration Fluticasone Propionate 1 spray 05/01/21 09:00 05/03/21 08:52 Fluticasone Propionate 0.05% Na Spr 16 Gm Btl (*Bkc) NASAL 1 spray DAILY [facility] Administration Piperacillin/Tazobactam/Dextrose 3.375 gm in 50 mls @ 100 mls/hr 05/03/21 06:00 05/04/21 05:21 Zosyn 3.375 Gm/D5w 50ml Pm IVPB 100 mls/hr Q6HR [facility] Administration Sodium Chloride 1,000 mls @ 75 mls/hr 05/03/21 11:10 05/04/21 00:
[2021-05-04 08:00] VITALS: O2SAT 90
[2021-05-04] MEDS: allopurinoL 100 MG TABLET PO (09:32)
[2021-05-04] MEDS: SACCHAROMYCES BOULARDII 250 MG CAPSULE PO ×2 (09:32→17:41)
[2021-05-04] MEDS: ENOXAPARIN 40 MG/0.4 ML SYRINGE SUB-Q (09:32)
[2021-05-04] MEDS: ASPIRIN 325 MG TABLET PO (09:33)
[2021-05-04] MEDS: PANTOPRAZOLE 40 MG TABLET PO (09:33)
[2021-05-04] MEDS: FLUTICASONE PROPIONATE 0.05% NA SPR 16 GM BTL (*BKC) 1 SPRAY NASAL (09:33)
--- NOTE | 2021-05-04 13:19 | PM.IMPN ---
Progress Note: A&P Assessment and Plan (1) Severe sepsis: Code(s): A41.9 - Sepsis, unspecified organism; R65.20 - Severe sepsis without septic shock Status: Acute Assessment and Plan: Secondary to colitis Can stop iv fluids today Pt is on iv zosyn WCC improving Seen by GI continue iv ABX for one more day dc with oral ABX (2) Colitis: Code(s): K52.9 - Noninfective gastroenteritis and colitis, unspecified Status: Acute Assessment and Plan: CT scan of the abdomen and pelvis 04/30/2021: Showed diverticulosis of sigmoid colon, no CT evidence of diverticulitis, no bowel obstruction or free air, small sliding hiatal hernia, status post cholecystectomy Blood cultures x2 were negative C diff is negative, stools culture pending General surgery, continue conservative management GI evaluation, continue antibiotics and supportive care Pt is on iv zosyn, wcc coming down nicely. (3) Acute kidney injury: Code(s): N17.9 - Acute kidney failure, unspecified Status: Resolved Assessment and Plan: creat is better dc iv fluids (4) Elevated troponin: Code(s): R77.8 - Other specified abnormalities of plasma proteins Status: Acute Assessment and Plan: Patient denies chest pain and EKG reviewed Elevated troponin likely from sepsis Subjective Date/time seen: 05/04/21 13:19 Interval history: Pt admitted with Severe sepsis, colitis, acute kidney injury, elevated troponin Pt was transferred out of icu yesterday, stable on the floor still having diarrhea episodes. Pt is doing much better mild diarrhea today. Cdiff is negative stool cultures are pending. Wcc improving. Review of Systems Review of Systems: All systems reviewed & are unremarkable except as noted in HPI and below Exam Const: General: cooperative Orientation/consciousness: oriented to person HENMT: Head: normal to inspection Resp: Effort & Inspection: no respiratory distress Auscultation: no rhonchi Cardio: Rate: regular rate Rhythm: regular rhythm GI: Inspection: normal to inspection Auscultation: normal bowel sounds Neuro: General: oriented to person Objective Data Vital Signs Vital Signs: Vital Signs - 24 hr 05/03/21 13:55 05/03/21 14:00 05/03/21 21:45 Temperature 36.7 C 36.3 C L Pulse Rate 84 83 Respiratory Rate 20 18 Blood Pressure 134/69 118/65 Pulse Oximetry 84 L 96 93 05/04/21 06:00 05/04/21 08:00 Temperature 36.1 C L Pulse Rate 80 Respiratory Rate 18 Blood Pressure 142/68 H Pulse Oximetry 94 90 Intake/Output Intake/Output: Intake & Output 05/01/21 05/02/21 05/03/21 05/04/21 23:59 23:59 23:59 23:59 Intake Total 2600 1822 2040 Output Total 2350 1200 Balance 250 1822 840 Meds/Results Medications: Active Medications Generic Name Dose Route Start Last Admin Trade Name Freq PRN Reason Stop Dose Admin Acetaminophen 650 mg 05/02/21 04:44 05/04/21 03:49 Acetaminophen 325 Mg Tablet PO 650 mg Q6H PRN Administration Mild Pain (1-3) or Fever Hydrocodone Bitart/Acetaminophen 1 tab 05/03/21 19:20 Hydrocodone/Acetaminophen (*Crx) 5-325 Mg Tablet PO Q6H PRN Pain Rated 7-10 Allopurinol 100 mg 05/03/21 09:00 05/04/21 09:32 Allopurinol 100 Mg Tablet PO 100 mg DAILY [facility] Administration Aspirin 325 mg 05/01/21 08:20 05/04/21 09:33 Aspirin 325 Mg Tablet PO 325 mg DAILY@0800 [facility] Administration Diclofenac Sodium 1 applic 05/01/21 09:00 05/04/21 09:33 Diclofenac Sodium 1% 100 Gm Gel (*Bkc) TOPICAL Not Given QID COUNT INCLUDES [facility] Dicyclomine HCl 20 mg 05/03/21 13:14 Dicyclomine Hcl 10 Mg Capsule PO QID PRN Abdominal Cramping Enoxaparin Sodium 40 mg 05/01/21 09:00 05/04/21 09:32 Enoxaparin 40 Mg/0.4 Ml Syringe SUB-Q 40 mg DAILY [facility] Administration Fluticasone Propionate 1 spray 05/01/21 09:00 05/04/21 09:33 Fluticasone Propionate 0.05% Na Spr 16 Gm Btl
[2021-05-04] MEDS: HYDROcodone/acetaminophen (*CRX) 5-325 MG TABLET 1 TAB PO ×2 (13:20→21:48)
[2021-05-04 14:00] VITALS: BP 143/76; PULSE 83; RESP 22; TEMP 36.7; O2SAT 94
[2021-05-04] MEDS: ONDANSETRON INJ 4 MG/2 ML VIAL IV PUSH (16:44)
[2021-05-04 21:14] VITALS: O2SAT 94
[2021-05-04 21:47] VITALS: BP 129/79; PULSE 76; RESP 16; TEMP 36.4; O2SAT 93
[2021-05-04] MEDS: ROSUVASTATIN 5 MG TABLET PO (21:48)
[2021-05-04] MEDS: SERTRALINE HCL 50 MG TABLET 100 MG PO (21:48)
[2021-05-04] MEDS: lisinopriL 10 MG TABLET PO (21:49)
[2021-05-05 05:43] VITALS: BP 142/72; PULSE 71; RESP 20; TEMP 36.8; O2SAT 97
[2021-05-05 07:01] LABS: Hematocrit 31.8 % (37.0-47.0); Hemoglobin 10.2 g/dL (12.0-15.0); Mean Corpuscular HGB Conc 32.1 g/dl (32-36); Mean Corpuscular Hemoglobin 29.3 pg (26-34); Mean Corpuscular Volume 91.4 fl (80-100); Mean Platelet Volume 10.6 fl (7.4-10.4); Platelet Count Result 165 k/mm3 (150-375); Red Blood Count 3.48 M/mm3 (4.2-5.4); Red Cell Distribution Width 13.2 % (11.5-14.5); White Blood Count 10.6 K/mm3 (4.5-10.0)
[2021-05-05 07:10] LABS: Alanine Aminotransferase 20 U/L (4-35); Albumin Level 2.8 g/dL (3.5-5.1); Alkaline Phosphatase 104 U/L (38-126); Anion Gap 2 mmol/L (8-16); Aspartate Amino Transferase 30 U/L (14-36); Bilirubin,Total 0.2 mg/dL (0.2-1.3); Blood Urea Nitrogen 8 mg/dL (7-17); Calcium 8.5 mg/dL (8.4-10.2); Carbon Dioxide 35 mmol/L (22-30); Chloride 103 mmol/L (98-107); Estimated CRCL calculation 52 ml/min; Estimated Glomerular Filt Rate 50; Glucose 93 mg/dL (65-110); Magnesium 2.2 mg/dL (1.6-2.3); Potassium 3.2 mmol/L (3.4-5.0); Sodium 140 mmol/L (137-145)
--- NOTE | 2021-05-05 07:23 | WPDGIPROGNO ---
Progress Note: A&P Assessment and Plan (1) Colitis: Code(s): K52.9 - Noninfective gastroenteritis and colitis, unspecified Status: Acute Assessment and Plan: Colitis evident on CT scan. Clinically improving. Would recommend a 1 week course of oral antibiotics after discharge. She can follow up in the office electively if diarrhea persists. I do not expect this will be necessary. Increase diet and activity. Home today hopefully. (2) Arthritis of carpometacarpal (CMC) joint of right thumb: Code(s): M18.11 - Unilateral primary osteoarthritis of first carpometacarpal joint, right hand Status: Resolved Assessment and Plan: Orthopedic follow-up anticipated. (3) Chronic narcotic use: Code(s): F11.90 - Opioid use, unspecified, uncomplicated Status: Acute Assessment and Plan: Patient should limit narcotic use. At the time of admission was constipated felt to be secondary to narcotic use. Subjective Date/time seen: 05/05/21 07:23 Patient feels much better today. Still with intermittent loose stools yesterday. No bleeding noted. Pain has improved dramatically. Only mild pain left flank evident. Review of Systems Review of Systems: All systems reviewed & are unremarkable except as noted in HPI and below Exam Narrative: Physical exam reveals patient be alert comfortable at rest. HEENT exam reveals no icterus. Lungs are clear. Heart without murmur. Abdomen is obese. Bowel sounds are present soft nontender. She does report some discomfort on left side. Objective Data Vital Signs Vital Signs: Vital Signs - 24 hr 05/04/21 08:00 05/04/21 14:00 05/04/21 21:14 Temperature 98.1 F Pulse Rate 83 Respiratory Rate 22 H Blood Pressure 143/76 H Pulse Oximetry 90 94 94 05/04/21 21:47 05/05/21 05:43 Temperature 97.5 F L 98.2 F Pulse Rate 76 71 Respiratory Rate 16 20 Blood Pressure 129/79 142/72 H Pulse Oximetry 93 97 Intake/Output Intake/Output: Intake & Output 05/02/21 05/03/21 05/04/21 05/05/21 23:59 23:59 23:59 23:59 Intake Total 2600 1822 3460 1150 Output Total 2350 1200 Balance 250 1822 2260 1150 Meds/Results Medications: Active Medications Generic Name Dose Route Start Last Admin Trade Name Freq PRN Reason Stop Dose Admin Acetaminophen 650 mg 05/02/21 04:44 05/04/21 18:10 Acetaminophen 325 Mg Tablet PO 650 mg Q6H PRN Administration Mild Pain (1-3) or Fever Hydrocodone Bitart/Acetaminophen 1 tab 05/03/21 19:20 05/04/21 21:48 Hydrocodone/Acetaminophen (*Crx) 5-325 Mg Tablet PO 1 tab Q6H PRN Administration Pain Rated 7-10 Allopurinol 100 mg 05/03/21 09:00 05/04/21 09:32 Allopurinol 100 Mg Tablet PO 100 mg DAILY [facility] Administration Aspirin 325 mg 05/01/21 08:20 05/04/21 09:33 Aspirin 325 Mg Tablet PO 325 mg DAILY@0800 [facility] Administration Diclofenac Sodium 1 applic 05/01/21 09:00 05/04/21 21:49 Diclofenac Sodium 1% 100 Gm Gel (*Bkc) TOPICAL Not Given QID [facility] Dicyclomine HCl 20 mg 05/03/21 13:14 Dicyclomine Hcl 10 Mg Capsule PO QID PRN Abdominal Cramping Enoxaparin Sodium 40 mg 05/01/21 09:00 05/04/21 09:32 Enoxaparin 40 Mg/0.4 Ml Syringe SUB-Q 40 mg DAILY [facility] Administration Fluticasone Propionate 1 spray 05/01/21 09:00 05/04/21 09:33 Fluticasone Propionate 0.05% Na Spr 16 Gm Btl (*Bkc) NASAL 1 spray DAILY [facility] Administration Piperacillin/Tazobactam/Dextrose 3.375 gm in 50 mls @ 100 mls/hr 05/03/21 06:00 05/05/21 06:45 Zosyn 3.375 Gm/D5w 50ml Pm IVPB Infused Q6HR [facility] Infusion Lisinopril 10 mg 05/02/21 21:00 05/04/21 21:49 Lisinopril 10 Mg Tablet PO 10 mg HS [facility] Administration Loperamide HCl 2 mg 05/03/21 11:08 05/03/21 16:34 Loperamide Hcl 2 Mg Capsule PO 2 mg PRN PRN Administration Diarrhea Ondansetron HCl 4 mg 04/30/21 20:11 05/04/21 16:44 Ondansetron Inj 4 Mg/2 Ml Vial IV
[2021-05-05] MEDS: ENOXAPARIN 40 MG/0.4 ML SYRINGE SUB-Q (08:55)
[2021-05-05] MEDS: DICYCLOMINE HCL 10 MG CAPSULE 20 MG PO (08:55)
[2021-05-05] MEDS: DICLOFENAC SODIUM 1% 100 GM GEL (*BKC) 1 APPLIC TOPICAL (08:55)
[2021-05-05] MEDS: allopurinoL 100 MG TABLET PO (08:56)
[2021-05-05] MEDS: PANTOPRAZOLE 40 MG TABLET PO (08:57)
[2021-05-05] MEDS: ASPIRIN 325 MG TABLET PO (08:57)
[2021-05-05] MEDS: POTASSIUM CHLORIDE 20 MEQ PACKET (FOR LIQUID) 40 MEQ PO (08:57)
[2021-05-05] MEDS: SACCHAROMYCES BOULARDII 250 MG CAPSULE PO (08:57)
[2021-05-05] MEDS: FLUTICASONE PROPIONATE 0.05% NA SPR 16 GM BTL (*BKC) 1 SPRAY NASAL (08:58)
[2021-05-05] MEDS: CYCLOBENZAPRINE HCL 5 MG TABLET PO (10:36)
[2021-05-05 14:00] VITALS: BP 152/73; PULSE 84; RESP 17; TEMP 36.9; O2SAT 96
--- NOTE | 2021-05-05 14:01 | PM.DS ---
DS: Admitting Diagnosis Discharge Date 05/05/2021 Admitting Diagnosis abdominal pain DS: Discharge Diagnosis Discharge Diagnosis (1) Severe sepsis: Code(s): A41.9 - Sepsis, unspecified organism; R65.20 - Severe sepsis without septic shock Status: Acute Assessment and Plan: Secondary to colitis Can stop iv fluids today Pt is on iv zosyn WCC improving Seen by GI continue iv ABX for one more day dc with oral ABX (2) Colitis: Code(s): K52.9 - Noninfective gastroenteritis and colitis, unspecified Status: Acute Assessment and Plan: CT scan of the abdomen and pelvis 04/30/2021: Showed diverticulosis of sigmoid colon, no CT evidence of diverticulitis, no bowel obstruction or free air, small sliding hiatal hernia, status post cholecystectomy Blood cultures x2 were negative C diff is negative, stools culture pending General surgery, continue conservative management GI evaluation, continue antibiotics and supportive care Pt is on iv zosyn, wcc coming down nicely. (3) Acute kidney injury: Code(s): N17.9 - Acute kidney failure, unspecified Status: Resolved Assessment and Plan: creat is better dc iv fluids (4) Elevated troponin: Code(s): R77.8 - Other specified abnormalities of plasma proteins Status: Acute Assessment and Plan: Patient denies chest pain and EKG reviewed Elevated troponin likely from sepsis DS: Summary Hospital Course Reason for hospitalization: Chief Complaint: Abdominal pain Narrative: 60-year-old female with a past medical history of rheumatoid arthritis, hypertension, hyperlipidemia and gout who presented to the ER with severe abdominal pain since the . The patient had had a right thumb suspension arthropathy performed 04/25/2021. She had been taking pain medications since the time of surgery and was subsequently constipated. She had not had a bowel movement since before her thumb surgery. Subsequently developed some abdominal distension and discomfort. Today she developed diffuse abdominal pain that acutely worsened over the last 24 hours. The pain is severe in intensity and is worse with palpation of her abdomen. The abdominal pain was accompanied by multiple episodes of bilious emesis that started today. She continues to have multiple episodes of dry heaves and vomiting in the ER. She denies any fevers or chills. Her reports that the patient had been confused earlier in the day but he feels that her confusion has resolved after IV fluids she received in the ER. She reports that she is still having flatulence. She took 4 different laxatives over the last 24 hours without improvement in her symptoms. On arrival to the ER should markedly tachycardic and had some mild tachypnea. She denies any chest pain or shortness of breath. She has not had any recent ill contacts. She has not had any recent travel. She did not receive any pre or postop antibiotics. She had had decreased appetite for the last several days. She received the [employer] COVID vaccine in August. Hospital Course: Secondary to colitis Can stop iv fluids today Pt is on iv zosyn WCC improving Seen by GI continue iv ABX for one more day dc with oral ABX patient remains clinically stable is feeling much better compared to when she arrived able to tolerate her diet, seen by GI okay to discharge patient on oral antibiotics for 7 days, and back pain discharge the patient on Flexeril. will discharge the patient today Status at Discharge Functional status at discharge: independent ambulation Overall status at discharge: patient is back to baseline Time Spent with Patient Time attestation: Total time spent providing and/or coordinating discharge services: Patient was seen and examined at the time of the discharge Condition at discharge is stable Code status: Full code. Time spent preparing discharge summary, discharge medications, d
== END 2021-05-05 16:10 | disposition home or self-care (01) | DRG 872 ==
LOC: ANHED 17:09 → ANHICU 05-01 00:51 → ANH3MEDSUR 05-04 15:42 → ANHICU 05-09 13:41
PROVIDERS: Internal Medicine; Admitting Provider Internal Medicine; Emergency Provider General Practice; Visit Provider Family Medicine
DX: A41.9 Sepsis, unspecified organism (principal); N17.9 Acute kidney failure, unspecified; R65.20 Severe sepsis without septic shock; K52.9 Noninfective gastroenteritis and colitis, unspecified; K59.03 Drug induced constipation; T40.605A Adverse effect of unspecified narcotics, initial encounter; Z98.890 Other specified postprocedural states; R77.8 Other specified abnormalities of plasma proteins; M06.9 Rheumatoid arthritis, unspecified; E78.5 Hyperlipidemia, unspecified; M10.9 Gout, unspecified; F41.9 Anxiety disorder, unspecified; F32.A Depression, unspecified; I10 Essential (primary) hypertension; E66.9 Obesity, unspecified; E86.0 Dehydration; M18.11 Unilateral primary osteoarthritis of first carpometacarpal joint, right hand; Z96.652 Presence of left artificial knee joint; Z68.33 Body mass index [BMI] 33.0-33.9, adult; Z90.49 Acquired absence of other specified parts of digestive tract
CPT/HCPCS: 36415; 36600; 51701; 71045; 74177; 80048; 80053; 81001; 82140; 82375; 82550; 82805; 82948; 83050; 83605; 83690; 83735; 84100; 84484; 85025; 85027; 85610; 85730; 87040; 87324; 89055; 93005; 96361; 96374; 96375; 97161; 97165; 99285; A9270; J0131; J1170; J1650; J2405; J2543; J2550; J7030; J7120; Q9967

== ENCOUNTER 2021-06-14 09:00 | Outpatient (RCR) | payer OTHER, SELFPAY ==
--- NOTE | 2021-05-17 11:38 | OTOPEVAL ---
OCCUPATIONAL THERAPY INITIAL EVALUATION REPORT 05/17/21 Thank you for referring Jodie Valentin to [facility].? The patient is scheduled to be seen for therapy? 1x/week for 4 weeks. Please review, sign, date and return this plan of care MILTON. I agree with and certify that the following plan of care is medically necessary. 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 Cardiovascular History Hx Hypercholesterolemia Yes Hx Hypertension Yes Respiratory History Hx Pneumonia Yes: 1993 Gastrointestinal History Hx Appendectomy Yes Hx Cholecystectomy Yes Hx Diverticulitis Yes Hx Gastroesophageal Reflux Disease Yes Genitourinary History Hx Other Genitourinary Disorders Yes: KIDNEY PROBLEMS AT AGE 3 Musculoskeletal History Hx Back Injury Yes: BROKE L4, L5, S1 Hx Back Pain Yes Hx Fractures Yes: RT LEG, LT FOOT, LT WRIST , RIBS, FINGERS/TOES Hx Joint Replacement Yes: LTKA Hx Orthopedic Surgery Yes: LT KNEE SCOPE X2, RT SHOULDER BICEPS, LT HAMSTRING/ PELVIS Hx Rheumatoid Arthritis Yes: HANDS Hx Other Musculoskeletal Disorders Yes: SPINAL INJECTIONS FOR BACK PAIN, R thumb surgery Hematological History Hx Hematological Disorders No Significant History Endocrine History Hx Endocrine Disorders No Significant History HEENT History Hx Eye Surgery Yes: UPPER BLEPH Integumentary History Hx Skin Disorders No Significant History Reproductive History Hx Post Menopausal Yes Psychosocial History Hx Anxiety Yes Hx Depression Yes Pain History Has Past Pain Affected Your Daily Life Yes History of Long-Term Prescription Pain Yes: 20 YRS OPIATES, RECENTLY Medication Use (Opiates) SWITCHED TO CBD Anesthesia History Hx Post-Op Nausea/Vomiting Yes Evaluation Information Problem Diagnosis (R) CMC arthroplasty Onset 04/25/21 Subjective Information Patient presents today, 3 Query Text:As Reported By Patient/ weeks following CMC Family arthroplasty. She is wearing a prefabricated thumb spica.
--- NOTE | 2021-06-14 09:29 | OTOPEVAL ---
OCCUPATIONAL THERAPY RE-EVALUATION AND DISCHARGE SUMMARY 06/14/21 Jodie presents today, 7 weeks post op, for OT re-evaluation. The patient has had excellent progress with therapy. She has returned to functional ROM with the right wrist and thumb. She has some residual weakness, but is currently independent with strengthening HEP. No further skilled OT indicated at this time. D/C with patient independent with HEP. Thank you for referring Jodie Valentin to [facility]. Please review, sign, date and return this D/C Note MILTON. I agree with and certify that the following plan of care is medically necessary. Referring Physician Date Referring Provider: Ankit Dutton MD *OT Outpatient Re-Evaluation Problem Diagnosis (R) CMC arthroplasty Onset 04/25/21 Subjective Information Patient presents today, 7 Query Text:As Reported By Patient/ weeks following CMC Family arthroplasty. She reports that daily activities are going great. She is able to use her hand for all ADLs and household tasks. She reports feeling limited with any heavy lifting. Pain Assessment Timing of Pain Assessment Timing of Pain Assessment Re-assessment Pain Scale Pain Scale Used Numeric (1 - 10) Self Report Pain Assessment Right Hand(s) Reported Pain Level 0 Lowest Pain Intensity 0 Greatest Pain Intensity 0 Pain Score Pain Score 0: Self Report Upper Extremity Range of Motion Elbow/Forearm Range of Motion Right Forearm Supination - Active 80 Forearm Pronation - Active 85 Wrist Range of Motion Right Wrist Flexion - Active 70 Wrist Extension - Active 65 Wrist Radial Deviation - Active 20 Wrist Ulnar Deviation - Active 35 Wrist Range of Motion Comments Wrist flexion improved from 60* Wrist extension improved from 60* RD remained at 20* UD improved from 30* Finger Range of Motion Right Reason Not Measured WNL/Right Thumb Range of Motion Right Thumb MCP Flexion - Active 50 Thumb IP Flexion - Active 65 Thumb CMC Radial Abduction - Active 45 Thumb CMC Palmar Abduction - Active 50 Opposition to 2nd Digit Tip 0 cm gap Opposition to 3rd Digit Tip 0 cm gap Opposition to 4th Digit Tip 0 cm gap Opposition to 5th Digit Tip 0 cm gap Opposition to 5th Digit Base 0 cm gap Thumb Range of Motion Comments MCP flexion improved from 45* IP flexion improved from 45* CMC radial abd improved from 40* CMC palmar abd improved from 40* Hand Curriculum Counselor/Pinch Strength Assessment Hand Left Gri
== END 2021-06-15 09:31 | disposition home or self-care (01) ==
LOC: ANHOT 09:00
PROVIDERS: PCP Internal Medicine; Visit Provider Orthopaedic Surgery
DX: M18.11 Unilateral primary osteoarthritis of first carpometacarpal joint, right hand (principal); Z98.890 Other specified postprocedural states
CPT/HCPCS: 97018; 97110; 97140; 97165

== ENCOUNTER 2023-09-27 12:48 | Outpatient (CLI) | payer MEDICARE, SELFPAY ==
--- NOTE | ~2023-09-27 | XR_ITS ---
XR shoulder RT min 2V DATE: 09/27/2023 13:20 INDICATION: Pain, limited range of motion. TECHNIQUE: 5 views COMPARISON: None FINDINGS: There is severe glenohumeral joint space narrowing and prominent spurring, consistent with severe glenohumeral osteoarthritis. There is mild spurring of the right acromioclavicular joint. No fracture, dislocation, periosteal reaction or bone destruction of the right shoulder. Old healed fractures of lateral right fourth through sixth ribs. IMPRESSION: Severe glenohumeral osteoarthritis Mild degenerative change at right acromioclavicular joint Old right rib fractures Reviewed, dictated and finalized at location B.
== END 2023-09-27 12:49 | disposition home or self-care (01) ==
PROVIDERS: PCP Internal Medicine; Visit Provider Orthopaedic Surgery
DX: M19.011 Primary osteoarthritis, right shoulder (principal)
CPT/HCPCS: 73030

== ENCOUNTER 2023-11-01 13:10 | Outpatient (CLI) | payer MEDICARE, SELFPAY ==
--- NOTE | ~2023-11-01 | XR_ITS ---
AP/oblique views of the SI joints Clinical history: joint pain FINDINGS: There is mild degenerative change of bilateral SI joints. There is degenerative spondylosis of the lower lumbar spine. Bilateral hip joints are intact. No erosive or sclerotic change. Soft tis sues are unremarkable. IMPRESSION: Mild degenerative change of both SI joints. Degenerative spondylosis of the visualized lower lumbar spine. Reviewed, dictated and finalized at location M.
--- NOTE | ~2023-11-01 | XR_ITS ---
Left wrist Technique: PA and lateral views were obtained. Clinical History: Joint pain Findings: No acute fracture or dislocation is seen. Osseous alignment is anatomic. There is moderate degenerative change of the first CMC joint. Soft tissues are unremarkable. Impression: Moderate degenerative change of the first CMC joint. Reviewed, dictated and finalized at [facility]. Impression: Moderate degenerative change of the first CMC joint.
--- NOTE | ~2023-11-01 | XR_ITS ---
Right Hand Technique: PA and lateral views were obtained. Clinical History: Pain Findings: No acute fracture or dislocation is seen. Prior trapezium resection noted. There is moderat e degenerative change of the second, third, and fourth DIP joints. There is moderate degenerative tammie nge interphalangeal joint of the thumb.. Soft tissues are unremarkable. Impression: Degenerative changes involving the interphalangeal joints, as detailed above. Prior trapezium resection Reviewed, dictated and finalized at location M. Impression: Degenerative changes involving the interphalangeal joints, as detailed above. Prior trapezium resection
--- NOTE | ~2023-11-01 | XR_ITS ---
Left ankle Technique: AP and lateral views were obtained. Clinical History: Joint pain Findings: No acute fracture or dislocation is seen. Osseous alignment is anatomic. Mild degenerative change of the tibiotalar joint. Soft tissues are otherwise unremarkable. Impression: Mild degenerative change of the tibiotalar joint. Reviewed, dictated and finalized at location . Impression: Mild degenerative change of the tibiotalar joint.
--- NOTE | ~2023-11-01 | XR_ITS ---
Right ankle Technique: AP and lateral views were obtained. Clinical History: Pain Findings: No acute fracture or dislocation is seen. Osseous alignment is anatomic. Ankle mortise and other visualized joint spaces are preserved. Soft tissues are otherwise unremarkable. Impression: Unremarkable right ankle. Reviewed, dictated and finalized at location . Impression: Unremarkable right ankle.
--- NOTE | ~2023-11-01 | XR_ITS ---
Right foot Technique: AP and lateral views were obtained. Clinical History: Joint pain Findings: No acute fracture or dislocation is seen. There is advanced degenerative change at the firs t MTP joint. Soft tissues are unremarkable. Impression: Advanced degenerative change of the first MTP joint. Reviewed, dictated and finalized at location . Impression: Advanced degenerative change of the first MTP joint.
--- NOTE | ~2023-11-01 | XR_ITS ---
Left foot Technique: AP, oblique, and lateral views were obtained. Clinical History: Pain Findings: No acute fracture or dislocation is seen. There is advanced degenerative change at the firs t MTP joint. There is moderate degenerative change of the second and third tarsometatarsal joints. So ft tissues are unremarkable. Impression: Advanced degenerative change at the first MTP joint. Moderate degenerative change of the second and third TMT joints. Reviewed, dictated and finalized at location M. Impression: Advanced degenerative change at the first MTP joint. Moderate degenerative change of the second and third TMT joints.
--- NOTE | ~2023-11-01 | XR_ITS ---
Left Hand Technique: PA and lateral views were obtained. Clinical History: Joint pain Findings: No acute fracture or dislocation is seen. Osseous alignment is anatomic. There is mild dege nerative change of the first CMC joint and second and third DIP joints. Soft tissues are unremarkable . Impression: Mild degenerative changes, as detailed above. Reviewed, dictated and finalized at location . Impression: Mild degenerative changes, as detailed above.
--- NOTE | ~2023-11-01 | XR_ITS ---
Right wrist Technique: PA and lateral views were obtained. Clinical History: Joint pain Findings: No acute fracture or dislocation is seen. Probable prior trapezium resection. There is mild degenerative changes at triscaphe joint. Soft tissues are unremarkable. Impression: Mild degenerative change of the triscaphe joint. Probable prior trapezium resection. Reviewed, dictated and finalized at [facility]. Impression: Mild degenerative change of the triscaphe joint. Probable prior trapezium resection.
== END 2023-11-01 13:11 | disposition home or self-care (01) ==
PROVIDERS: PCP Internal Medicine; Visit Provider Nurse Practitioner
DX: R53.81 Other malaise (principal); M19.042 Primary osteoarthritis, left hand; M19.072 Primary osteoarthritis, left ankle and foot; M19.071 Primary osteoarthritis, right ankle and foot; M53.3 Sacrococcygeal disorders, not elsewhere classified; M19.032 Primary osteoarthritis, left wrist; M19.031 Primary osteoarthritis, right wrist
CPT/HCPCS: 72202; 73100; 73120; 73600; 73620

== ENCOUNTER 2024-01-12 10:02 | Outpatient (CLI) | payer MEDICARE, SELFPAY ==
--- NOTE | ~2024-01-12 | XR_ITS ---
XR shoulder LT min 2V 01/12/2024 10:24 Indication: Left shoulder pain Procedure: 5 views left shoulder Comparison: No prior studies for comparison. Findings: There is moderate osteoarthritis of the left glenohumeral joint. No fracture or traumatic m alalignment. There is anatomic alignment. No soft tissue abnormality. Impression: 1: Moderate osteoarthritis of the left glenohumeral joint. Reviewed, dictated and finalized at location B. Impression: 1: Moderate osteoarthritis of the left glenohumeral joint.
== END 2024-01-12 10:03 | disposition home or self-care (01) ==
PROVIDERS: PCP Internal Medicine; Visit Provider Orthopaedic Surgery
DX: M19.012 Primary osteoarthritis, left shoulder (principal)
CPT/HCPCS: 73030

== ENCOUNTER 2024-01-18 16:49 | Emergency (ER) | payer MEDICARE, SELFPAY ==
--- NOTE | ~2024-01-18 | XR_ITS ---
XR hand LT min 3V Ordering provider: Kenyetta Vicente APRN History: . fall onto both hands . Comparison: November 01, 2023 FINDINGS: BONES: No acute fracture or dislocation. JOINT SPACES: Narrowing of the distal interphalangeal joints. Slight narrowing of the metacarpophalan geal joints of the second and third fingers. Osteoarthritic changes of the first carpometacarpal join t. SOFT TISSUES: Unremarkable. IMPRESSION: No acute osseous abnormality left hand. Reviewed, dictated and finalized at location A.
--- NOTE | ~2024-01-18 | XR_ITS ---
XR hand RT min 3V Ordering provider: Kenyetta Vicente APRN History: . pain . Comparison: November 01, 2023 FINDINGS: BONES: No acute fracture or dislocation. Status post removal of the trapezium bone JOINT SPACES: Osteoarthritic changes of the distal interphalangeal joints. SOFT TISSUES: Normal. IMPRESSION: No acute osseous abnormality right hand. Reviewed, dictated and finalized at location A.
[2024-01-18 17:03] VITALS: BP 139/88; PULSE 71; RESP 16; TEMP 36.6; O2SAT 99
--- NOTE | 2024-01-18 17:10 | ED.UPPEXIN ---
HPI - Extremity Injury (Upper) General Chief Complaint: Extremity Injury, Upper Stated Complaint: Hand Pain Time Seen by Provider: 01/18/24 17:11 History of Present Illness HPI narrative: patient presents with complaints of bilateral hand pain that has been present since approximately 1 or 2 this afternoon. She reports she was running down her sloped driveway, lost balance, fell and caught self on outstretched hands. She retains full range of motion of the wrist. Full range of motion of both hands. She does have some bruising to the palmar surface of the hands. She denies other injury and trauma, she voices no other concerns or complaints. She typically takes medication for pain due to her rheumatoid arthritis, has not taken anything extra today. She voices no other concerns or complaints at this time Related Data Home Medications Medication Instructions Recorded Confirmed rosuvastatin 5 mg tablet 5 mg PO HS 08/13/19 01/18/24 cannabidiol 100 mg/mL oral solution 100 mg PO HS 03/15/21 01/18/24 cholecalciferol (vitamin D3) 50 50 mcg PO HS 03/15/21 01/18/24 mcg (2,000 unit) capsule fluticasone propionate 50 1 spray intranasal DAILY 03/15/21 01/18/24 mcg/actuation nasal spray,suspension sertraline 100 mg tablet 100 mg PO HS 03/15/21 01/18/24 acetaminophen 650 mg 650 mg PO BID 04/19/21 01/18/24 tablet,extended release omeprazole 40 mg capsule,delayed 40 mg PO DAILY 04/19/21 01/18/24 release clocortolone pivalate 0.1 % 1 applic topical TID 01/14/24 01/18/24 topical cream leflunomide 20 mg tablet 20 mg PO DAILY 01/14/24 01/18/24 amlodipine 5 mg tablet 5 mg PO DAILY 01/18/24 01/18/24 clonidine HCl 0.1 mg tablet 0.1 mg PO BID 01/18/24 01/18/24 estradiol 0.01% (0.1 mg/gram) 1 g vaginal WEEKLY 01/18/24 01/18/24 vaginal cream hydrocodone 5 mg-acetaminophen 325 1 tablet PO PRN PRN Pain (Scale 01/18/24 01/18/24 mg tablet Score 4-6) Allergies Allergy/AdvReac Type Severity Reaction Status Date / Time adhesive tape AdvReac Mild Blister Verified 01/18/24 16:53 codeine AdvReac Mild Hives Verified 01/18/24 16:53 Sulfa (Sulfonamide AdvReac Mild Rash Verified 01/18/24 16:53 Antibiotics) Review of Systems Review of Systems: All systems reviewed & are unremarkable except as noted in HPI and below Constitutional: Constitutional: Reports no additional constitutional complaints ENT: Reports system reviewed and no additional complaints, except as documented Cardiovascular: Cardiovascular: Reports no additional cardiovascular complaints Respiratory: Respiratory: Reports no additional respiratory complaints Gastrointestinal: Gastrointestinal: Reports no additional gastrointestinal complaints Integumentary/Breasts: Skin/Breast: Reports unusual bruising ( bilateral palms) PMFSH Past Medical History Medical History Anxiety Chronic narcotic use She reports that she has not had chronic narcotic since he October 2020 Chronic pain Depression Gout History of back problems History of neck problems Hypercholesterolemia Hypertension Obesity Seizure in childhood Surgical History Surgical History Arthritis of carpometacarpal (CMC) joint of right thumb Right thumb CMC suspension arthroplasty April 25, 2021 History of appendectomy 1968- [facility] History of section 1987,1988 History of cholecystectomy 2006 History of knee replacement 2005 L TKA- Dr. Dutton History of pelvic surgery 2017- Dr. Orourke History of shoulder surgery Left-2014 [facility] Family History Family History Mother Family history of osteoarthritis Family history of malignant neoplasm of breast in first degree relative Sibling Family history of diabetes mellitus in first degree relative Father Family history of heart disease in male family member before age 55 Hyperten
== END 2024-01-18 17:57 | disposition home or self-care (01) ==
PROVIDERS: Emergency Provider Nurse Practitioner Family
DX: M79.642 Pain in left hand (principal); M79.641 Pain in right hand; M10.9 Gout, unspecified; E78.00 Pure hypercholesterolemia, unspecified; I10 Essential (primary) hypertension; E66.9 Obesity, unspecified; Z68.35 Body mass index [BMI] 35.0-35.9, adult; Z96.652 Presence of left artificial knee joint; F41.9 Anxiety disorder, unspecified; F32.A Depression, unspecified
CPT/HCPCS: 73130; 99214; G0463

== ENCOUNTER 2024-03-19 13:12 | Outpatient (CLI) | payer MEDICARE, SELFPAY ==
--- NOTE | ~2024-03-19 | XR_ITS ---
XR shoulder RT min 2V Ordering provider: Ha Ospina MD History: . Primary osteoarthritis, right shoulder, LIMITED ROM . Comparison: None. FINDINGS: BONES: No acute fracture or dislocation. JOINT SPACES: The acromioclavicular joint shows osteoarthritic changes. The glenohumeral joint shows osteoarthritic changes. SOFT TISSUES: Normal. IMPRESSION: No acute osseous abnormality right shoulder. Osteoarthritic changes of the glenohumeral and acromioclavicular joints Reviewed, dictated and finalized at location A.
== END 2024-03-19 13:13 | disposition home or self-care (01) ==
LOC: ANHIMG 13:17
PROVIDERS: PCP Internal Medicine; Visit Provider Orthopaedic Surgery
DX: M19.011 Primary osteoarthritis, right shoulder (principal)
CPT/HCPCS: 73030

== ENCOUNTER 2024-08-08 08:24 | Outpatient (CLI) | payer MEDICARE, SELFPAY ==
--- NOTE | ~2024-08-08 | XR_ITS ---
EXAMINATION: XR shoulder RT min 2V DATE: 08/08/2024 08:44 INDICATION: Primary osteoarthritis, right shoulder. TECHNIQUE: 4 views of right shoulder were obtained. COMPARISON: Right shoulder radiographs 03/19/2024 FINDINGS: Alignment is normal. No acute fracture. There are multiple old healed right rib fractures. There is severe osteoarthritis of glenohumeral joint and acromioclavicular joint with bone volume los s of glenoid. IMPRESSION: 1. Polyarticular osteoarthritis. Reviewed, dictated and finalized at location A. ES ASSISTANT
--- OUTSIDE RECORDS SUMMARY | 2024-08-08 08:31 | XMS_ITS | Referral Summary ---
Author Organization [facility] Address [address] [place] [address] Care Team Providers Care Babcock Tester Name Role Phone Yaw Gibbs MD Primary Care Provider [phone] Source Comments [facility],non-owned Affiliates and Associated Physician Practices is amultiple site organization consisting of ambulatory clinics and hospital sitesin [place], [place], [place] and [place]. This disclosure is being madepursuant to the Care Everywhere program and may not contain all information available regarding this patient. Last updated 18.[facility] Allergies Active Allergy Reactions Criticality Noted Date Comments Barbiturates 06/02/2016 Medications * Be aware that medications may not be up to date on this document. Alwaysverify current medications with the patient. Medication Sig Dispensed Refills Start Date End Date Status LISINOPRIL PO Active Sertraline HCl (ZOLOFT PO) Active ALLOPURINOL PO Active MELOXICAM PO Active Omeprazole (PRILOSEC PO) Active VITAMIN D, CHOLECALCIFEROL, PO Active Immunizations Name Administration Dates Next Due INFLUENZA VACCINE, QUADR. (F LUZONE; FLULAVAL; FLUARIX; AFLURIA QUADRIVALENT; 6MO+), 0.5 ML (IIV4) 03/12/2020,03/06/2017 Social History Tobacco Use Types Packs/Day Years Used Date Smoking Tobacco: Never Assessed Sex and Gender Information Value Date Recorded Sex Assigned at Not on file Gender Identity Not on file Sexual Orientation Not on file Last Filed Vital Signs Vital Sign Reading Time Taken Comments Blood Pressure 128/72 06/02/2016 2:37 PM [employer] Pulse 114 06/02/2016 2:37 PM [employer] Temperature 37.2 C (99 F) 06/02/2016 2:37 PM [employer] Respiratory Rate 18 06/02/2016 2:37 PM [employer] Oxygen Saturation 98% 06/02/2016 2:37 PM [employer] Inhaled Oxygen Concentration - - Weight 106.6 kg (235 lb) 06/02/2016 2:37 PM [employer] Height 165.1 cm (5' 5 ) 06/02/2016 2:37 PM [employer] Body Mass Index 39.11 06/02/2016 2:37 PM [employer] Plan of Treatment Not on file Care Teams Babcock Tester Relationship Specialty Start Date End Date Yaw Gibbs MD [address] [place] [address] DR Brown [address] [address] PCP - General 10/28/20
--- OUTSIDE RECORDS SUMMARY | 2024-08-08 08:31 | XMS_ITS | Encounter Summary ---
Author Organization [facility] Healthcare Address [address] [place] [address] Care Team Providers Care Laborer Golf Course Name Role Phone Lisa Dickerson Unavailable [phone] Rony Sharp MD Unavailable [phone] Walter Ralph MD, Sheldon Tompkins Unavailable + Akash Lagos MD Unavailable Trav Vaughn MD Unavailable Yaw Gibbs MD Primary Care Provider + Calixto Sweet MD Unavailable [phone] Nuzhat Saunders MD Unavailable Karol Mills MD Unavailable [phone] Socorro Gamboa DPT Unavailab le Encounter Details Date Type Department Care Team (Late st Contact Info) Description 11/03/2022 Telephone [facility] [address] [place] [address] Dilan Richards RT Social History Tobacco Use Types Packs/Day Years Used Date Smoking Tobacco: Never Smokeless Tobacco: Never Alcohol Use Standard Drinks/Week Comments Yes 0 (1 standard drink = 0.6 oz pure alcohol) couple drinks a few times per year PHQ-2 Answer Date Recorded PHQ-2 Total Score (If total score is 3 or more points, staff should administer the PHQ-9) 0 09/27/2022 Comments No Sex and Gender Information Value Date Recorded Sex Assigned at Not on file Legal Sex Female 1:02 AM SENIOR COMPENSATION CONSULTANT Gender Identity Female 10/10/2023 1:18 PM CDT Sexual Orientation Straight 03/13/2024 9: 10 AM CDT 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 Author CCM Chronic Pain Care Plan Chronic Care Management Zahra Hung, RN Note: Problem: Chronic Pain Goals: 1. Minimize further functional decline 2. Maximize quality of life 3. Control pain Strategies: - Activity/exercise program recommendation - Conservative stepwise pain medicine strategy with multi-disciplinary approach - Recommend healthy lifestyle strategies and compensatory methods as needed documented as of this encounter Visit Diagnoses Not on filedocumented in this encounter Care Teams Laborer Golf Course Relationship Specialty Start Date End Date Yaw Gibbs MD [address] [place] [address] DR Gil [facility] [address] [place] [address] PCP - General Internal Medicine 03/23/20 Lisa Dickerson DO Surgeon Orthopedic Surgery 07/25/18 [place] [address] [place] [address] Surgeon Orthopedic Surgery 07/25/18 [place] [address] [place] [address] Referring Physician Rheumatology 07/25/18 [place] [address] [place] [address] Surgeon Orthopedic Surgery 07/25/18 Trav Vaughn MD [address] [place] [address] Referring Physician Ophthalmology 07/25/18 Calixto Sweet MD [facility] [address] [place] [address] Consulting Physician Orthopedic Surgery 08/04/20 Nuzhat Saunders MD [address] [place], [place] [address] [place] [address] Consulting Physician Dermatology 08/04/20 Karol Mills MD [address] [place] [address] Consulting Physician Obstetrics and Gynecology 08/05/20 Socorro Gamboa, [place] [address] [facility] [address] [place], [place] [id number] Physical Therapist Physical Therapy 10/05/22 documented as of this encounter
--- OUTSIDE RECORDS SUMMARY | 2024-08-08 08:31 | XMS_ITS | Clinical Summary ---
Author Organization [facility] Address [address] [place] [address] Care Team Providers Care Design Engineer Name Role Phone Yaw Gibbs MD Primary Care Provider [phone] Source Comments [facility],non-owned Affiliates and Associated Physician Practices is amultiple site organization consisting of ambulatory clinics and hospital sitesin [place], [place] and [place]. This disclosure is being madepursuant to the Care Everywhere program and may not contain all information available regarding this patient. Last updated 18.[facility] Allergies Active Allergy Reactions Criticality Noted Date [...] Comments Blood Pressure 128/72 06/02/2016 2:37 PM SENIOR DATA DEVELOPER Pulse 114 06/02/2016 2:37 PM SENIOR DATA DEVELOPER Temperature 37.2 C (99 F) 06/02/2016 2:37 PM SENIOR DATA DEVELOPER Respiratory Rate 18 06/02/2016 2:37 PM SENIOR DATA DEVELOPER Oxygen Saturation 98% 06/02/2016 2:37 PM SENIOR DATA DEVELOPER Inhaled Oxygen Concentration - - Weight 106.6 kg (235 lb) 06/02/2016 2:37 PM SENIOR DATA DEVELOPER Height 165.1 cm (5' 5 ) 06/02/2016 2:37 PM SENIOR DATA DEVELOPER Body Mass Index 39.11 06/02/2016 2:37 PM SENIOR DATA DEVELOPER Plan of Treatment Health Maintenance Due Date Last Done Comments BONE DENSITY TESTING 1958 COLOGUARD (AGES 45-75) - COLON CA SCREENING 1958 COLON MONITORING 1958 COLONOSCOPY - COLON CA SCREENING 1958 CT COLONOGRAPHY - COLON CA SCREENING 1958 Colorectal Cancer Screening 1958 FIT - COLON CA SCREENING 1958 FLEX SIG - COLON CA SCREENING 1958 LIPID TESTING 1958 MAMMOGRAM 1958 PAP SMEAR 1958 HIV SCREENING 1973 HEPATITIS C SCREENING 08/09/1976 DTAP/TDAP/TD VACCINES (1 - Tdap) 1977 PNEUMOCOCCAL VACCINE 50+ (1 of 1 - PCV) 2008 ZOSTER VACCINE (1 of 2) 2008 COVID-19 VACCINE (1 - 2023- season) 2024 INFLUENZA VACCINE (#1) 2024 0, 03/25/2019, 03/25/2018, Additional history exists DEPRESSION SCREENING 06/25/2024 Respiratory Syncytial Virus (RSV) Vaccine Pt: or over 60 yrs (1 - 1-dose 75+ series) 2033 HEPATITIS B VACCINE Aged Out No longe r eligible based on patient's age to complete this topic HIB VACCINE Aged Out No longer eligi ble based on patient's age to complete this topic HPV VACCINE Aged Out No longer eligi ble based on patient's age to complete this topic MENINGOCOCCAL (Group B) VACCINE Aged Out No longer eligible based on patient's age to complete this topic MENINGOCOCCAL VACCINE Aged Out No marcos almaz eligible based on patient's age to complete this topic Care Teams Design Engineer Relationship Specialty Start Date End Date Yaw Gibbs MD [address] [place] [address] [address] [place] [address] PCP - General 10/28/20
--- OUTSIDE RECORDS SUMMARY | 2024-08-08 08:31 | XMS_ITS | Encounter Summary ---
Author Organization [facility] Address [address] [place] [address] Care Team [address] Care [address] Supervisor Of Engines Name Role Phone Lisa Dickerson Unavailable [phone] Rony Sharp MD Unavailable Walter Ralph MD, Sheldon Tompkins Unavailable + Akash Lagos MD Unavailable [phone] Trav Vaughn MD Unavailable Eliezer Garcia MD Unavailable [phone] Yaw Gibbs MD Primary Care Provider + Calixto Sweet MD Unavailable [phone] Nuzhat Saunders MD Unavailable Karol Mills MD Unavailable Socorro Gamboa DPT Unavailab le Encounter Details Date Type Department Care Team (Late st Contact Info) Description 10/18/2020 Telephone [place] [id number] [address] Alena Motley, RT Social History Tobacco Use Types Packs/Day Years Used Date Smoking Tobacco: Never Smokeless Tobacco: Never Alcohol Use Standard Drinks/Week Comments Yes 0 (1 standard drink = 0.6 oz pure alcohol) couple drinks a few times per year PHQ-2 Answer Date Recorded PHQ-2 Total Score (If total score is 3 or more points, staff should administer the PHQ-9) 0 08/05/2020 Comments No Sex and Gender Information Value Date Recorded Sex Assigned at Not on file Legal Sex Female 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 Author CCM Chronic Pain Care Plan Chronic Care Management Zahra Hung RN Note: Problem: Chronic Pain Goals: 1. Minimize further functional decline 2. Maximize quality of life 3. Control pain Strategies: - Activity/exercise program recommendation - Conservative stepwise pain medicine strategy with multi-disciplinary approach - Recommend healthy lifestyle strategies and compensatory methods as needed documented as of this encounter Visit Diagnoses Not on filedocumented in this encounter Care Teams Road Supervisor Of Engines Relationship Specialty Start Date End Date Yaw Gibbs MD [address] [place] [address] [address] [address] PCP - General Internal Medicine 03/23/20 Lisa Dickerson DO Surgeon Orthopedic Surgery 07/25/18 [place] [address] [place] [address] Surgeon Orthopedic Surgery 07/25/18 [place] [address] [place] [address] Referring Physician Rheumatology 07/25/18 [place] [address] [place] [address] Surgeon Orthopedic Surgery 07/25/18 Trav Vaughn MD [address] [place] [address] Referring Physician Ophthalmology 07/25/18 Eliezer Garcia MD [address] [place] [address] Consulting Physician Gastroenterology 07/25/18 03/24/21 Calixto Sweet MD [address] [facility] [address] [place] [address] Consulting Physician Orthopedic Surgery 08/04/20 Nuzhat Saunders MD [address] [place] [address] [address] [place] [address] Consulting Physician Dermatology 08/04/20 Karol Mills MD [address] [place] [address] Consulting Physician Obstetrics and Gynecology 08/05/20 Socorro Gamboa DPT [address] [facility] [address] [place] [address] Physical Therapist Physical Therapy 10/05/22 documented as of this encounter
--- OUTSIDE RECORDS SUMMARY | 2024-08-08 08:31 | XMS_ITS | Referral Summary ---
Author Organization Formerly [facility] Address [address] [place] [address] Care Team Providers Care Grey Iron Molder Name Role Phone Lisa Dickerson Unavailable [phone] Rony Sharp MD Unavailable Walter Ralph MD, Sheldon Tompkins Unavailable + Akash Lagos MD Unavailable Trav Vaughn MD Unavailable Yaw Gibbs MD Primary Care Provider + Calixto Sweet MD Unavailable Nuzhat Saunders MD Unavailable Karol Mills MD Unavailable [phone] Socorro Gamboa DPT Unavailab le Encounters Date Type Department Care Team Description 08/06/2024 1:30 PM SOLUTIONS ANALYST Clinical Support [facility] Medical [facility] Building [address] [place] [address] Claudia Peace NP Stage 3b chronic kidney disease (HCC) [N18.32] (Primary Dx); Diverticulosis [K57.90]; Prediabetes [R73.03] 07/31/2024 1:50 PM SOLUTIONS ANALYST Lab [facility] [address] [facility] [place] [address] Pulmonary emphysema, unspecified emphysema type (HCC) 07/31/2024 12:45 PM SOLUTIONS ANALYST Office Visit [facility] [address] [facility] [address] [place] [address] Maryjo Moeller MD Pulmonary emphysema, unspecified emphysema type (HCC) (Primary Dx); Lung nodule; Marijuana use; Rheumatoid arthritis involving multiple sites with positive rheumatoid factor (CMS/HCC) (HCC) 07/30/2024 1:30 PM SOLUTIONS ANALYST Clinical Support [facility] [address] [facility] Medical Office Building [address] [place] [address] Claudia Peace NP Class 2 severe obesity due to excess calories with serious comorbidity and body mass index (BMI) of 36.0 to 36.9 in adult (HCC) [E66.812, E66.01, Z68.36] (Primary Dx); BMI 36.0-36.9,adult 07/22/2024 8:00 AM SOLUTIONS ANALYST Telemedicine [facility] [address] [facility] Medical Office Building [address] [place] [address] Class 2 severe obesity due to excess calories with serious comorbidity and body mass index (BMI) of 36.0 to 36.9 in adult (HCC) [E66.812, E66.01, Z68.36] (Primary Dx); Stage 3b chronic kidney disease (HCC) [N18.32]; Prediabetes [R73.03]; Essential hypertension [I10]; Diverticulosis [K57.90] 07/22/2024 2:20 PM SOLUTIONS ANALYST Office Visit [facility] 7th Floor [address] [place] [address] Modesto Hardy MD Mixed stress and urge urinary incontinence (Primary Dx); Urge incontinence of urine 07/21/2024 Telephone [facility] [address] [facility] 7th Floor [address] [place] [address] Catherine Delgado RN Botox Pyridium 07/21/2024 Telephone [facility] [address] [facility] 12th [place] [address] [place] [address] Pranay Torres MD 07/17/2024 11:17 AM SOLUTIONS ANALYST - 07/17/2024 11:59 PM SOLUTIONS ANALYST Hospital Encounter [facility] [address] [place] [address] Spinal stenosis, lumbar region, with neurogenic claudication; Essential hypertension; Mixed hyperlipidemia; Class 2 severe obesity due to excess calories with serious comorbidity and body mass index (BMI) of 35.0 to 35.9 in adult (HCC); Vitamin D deficiency; Other abnormal glucose Discharge Disposition: Discharge to home or self care 07/17/2024 Orders Only [facility] [address] [facility] Building [address] [place] [address] Claudia Peace NP Spinal stenosis, lumbar region, with neurogenic claudication (Primary Dx) 07/17/2024 11:15 AM SOLUTIONS ANALYST Lab [facility] Outpatient Lab at [address] [address] Essential hypertension (Primary Dx) 07/17/2024 8:00 AM SOLUTIONS ANALYST Office Visit [facility] [address] [facility] Building [address] [place] [address] Claudia Peace NP Essential hypertension (Primary Dx); Spinal stenosis, lumbar region, with neurogenic claudication; Mixed hyperlipidemia; Class 2 severe obesity due to excess calories with serious comorbidity and body mass index (BMI) of 35.0 to 35.9 in adult (HCC); Vitamin D deficiency; Other abnormal glucose 07/02/[address] [place] [phone] Yaw Gibbs MD Med Refill 06/12/2024 8:09 AM SOLUTIONS ANALYST - 06/12/2024 11:59 PM SOLUTIONS ANALYST Hospital Encounter [facility] [address] [place] [address] Calixto Sweet MD Low back pain with radiation (Primary Dx); Spinal stenosis, lumbar region, with neurogenic claudication; Lumbar spondylosis; Lumbar radicular pain Discharge Disposition: Discharge to home or self care 06/11/2024 Telephone [facility] [address] [facility] 8th [place] [address] [place] [phone] Leandra Wiley 06/11/2024 Telephone [facility] [address] [facility] [address] [place] [address] Yaw Gibbs MD Urgent referral 06/10/2024 Orders Only [facility] [address] [facility] Floor 5 [place] [phone] Kathy Lugo, ANDERSON Multiple lung nodules (Primary Dx) 06/10/2024 11:30 AM SOLUTIONS ANALYST Office Visit [facility] [address] [facility] [address] [place] [phone] Reese Myers MD Multiple lung nodules (Primary Dx); Abnormal CT of the chest; Pulmonary nodules; Class 2 severe obesity due to excess calories with serious comorbidity and body mass index (BMI) of 35.0 to 35.9 in adult (HCC) 06/06/2024 Orders Only [address] [place] [address] Rey Alexander DNP Abnormal chest CT (Primary Dx); Pulmonary emphysema, unspecified emphysema type (HCC) 06/04/2024 8:43 AM SOLUTIONS ANALYST - 06/04/2024 11:59 PM SOLUTIONS ANALYST Hospital Encounter [facility] [address] [facility] [address] [place] [phone] Shortness of breath Discharge Disposition: Discharge to home or self care 06/02/2024 Telephone [facility] [address] [facility] 7th Floor [address] [place] [phone] Katheryn Greco RN [facility] result 05/30/2024 10:33 AM SOLUTIONS ANALYST - 05/30/2024 11:59 PM SOLUTIONS ANALYST Hospital Encounter [place] [id number] [place] [address] Urinary frequency Discharge Disposition: Discharge to home or self care 05/30/2024 Orders Only [address] [place] [address] Rey Alexander, MICHELLE Abnormal CT of the chest (Primary Dx); Aneurysm of ascending aorta without rupture (HCC) 05/30/2024 10:45 AM SOLUTIONS ANALYST Lab [facility] Outpatient Lab at [address] [phone] 05/28/2024 Orders Only [address] [place] [address] Rey Alexander, MICHELLE Abnormal CT of the chest (Primary Dx); Shortness of breath; Pulmonary nodules; Aneurysm of ascending aorta without rupture (HCC) 05/27/2024 Telephone [facility] [address] [facility] 7th Floor [address] [place] [phone] Radha Noriega Scheduling Appointments 05/27/2024 8:00 AM SOLUTIONS ANALYST - 05/27/2024 11:59 PM SOLUTIONS ANALYST Hospital Encounter [address] [place] [address] Screening mammogram, encounter for Discharge Disposition: Discharge to home or self care 05/20/2024 10:55 AM SOLUTIONS ANALYST Lab [address] [address] 05/20/2024 10:48 AM SOLUTIONS ANALYST - 05/20/2024 11:59 PM SOLUTIONS ANALYST Hospital Encounter [facility] [address] [place] [address] Shortness of breath; Atypical chest pain; Chronic pain syndrome Discharge Disposition: Discharge to home or self care 05/20/2024 10:49 AM SOLUTIONS ANALYST - 05/20/2024 11:59 PM SOLUTIONS ANALYST Hospital Encounter [facility] [address] [place] [address] Shortness of breath; Atypical chest pain Discharge Disposition: Discharge to home or self care 05/19/2024 Orders Only [address] [address] Yaw Gibbs MD Chronic pain syndrome; Chronic midline low back pain without sciatica 05/19/2024 Telephone [facility] [address] [place] [address] Cheri Mosley 05/14/2024 Orders Only [address] [address] Yaw Gibbs MD 05/14/[address] [address] Yaw Gibbs MD cardio test issue 05/12/2024 5:56 PM SOLUTIONS ANALYST - 05/12/2024 11:59 PM SOLUTIONS ANALYST Hospital Encounter [facility] [address] [place] [address] Spinal stenosis, lumbar region, with neurogenic claudication; Low back pain with radiation; Lumbar spondylosis; Spondylolisthesis of lumbar region Discharge Disposition: Discharge to home or self care 05/08/2024 Orders Only [address] [address] Yaw Gibbs MD from Last 3 Months Allergies Active Allergy Reactions Criticality Noted Date Comments Amlodipine Swelling Medium 12/26/2023 Barbiturates Unknown 06/02/2016 Codeine Rash Medium Duloxetine Other (See comments) Low 11/29/2020 Stomach pain, fatigue, low libido, chills and sweats Duloxetine Hcl Other (See comments) Low 06/10/2021 Nsaids (Non-Steroidal Anti-Inflammatory Drug) Other (See comments) Low 07/14/2021 Colitis/CKD Medications fluticasone (FLONASE) 50 mcg/actuation nasal spray daily. 6 Active cholecalciferol (VITAMIN D-3) 2,000 unit tablet 1 po QD 2 Active CANNABIDIOL, CBD, EXTRACT ORAL Take by mouth Active turmeric root extract 500 mg capsule Take 500 mcg by mouth daily Active estradioL (Estrace) 0.01 % (0.1 mg/gram) vaginal creamIndication s:Vaginal atrophy Apply 1/4 applicator (1g) to the vagina 2-3 times per week (such as Sunday//Sunday) 42.5 g 3 3 Active acetaminophen ER (TYLENOL) 650 mg 8 hr tabletIndicatio ns:Pain Take 2 tablets (1,300 mg total) by mouth 2 (two) times a day Active leflunomide (ARAVA) 20 mg tabletIndicatio ns:Rheumatoid Arthritis Take 1 tablet (20 mg total) by mouth daily 90 tablet 1 4 Active lidocaine (LIDODERM) 5 %Indications:Lo wer Back Pain Place 1-2 patches on the skin daily 60 patch 3 4 Active atorvastatin (LIPITOR) 10 mg tablet Take 1 tablet (10 mg total) by mouth daily 90 tablet 3 4 025 Active HYDROcodone-lobito taminophen (NORCO) 5-325 mg per tabletIndicatio ns:Pain Take 1 tablet by mouth every 8 (eight) hours as needed for pain 30 tablet 4 Active albuterol HFA (PROVENTIL HFA,VENTOLIN HFA,PROAIR HFA) 90 mcg/actuation inhalerIndicati ons:Shortness of breath Inhale 2 puffs every 6 (six) hours as needed for wheezing 3 each 4 4 025 Active omeprazole (PriLOSEC) 20 mg capsule Take 1 capsule (20 mg total) by mouth daily 90 capsule 3 5 Active sertraline (ZOLOFT) 100 mg tabletIndicatio ns:Mild episode of recurrent major depressive disorder (HCC) Take 1.5 tablets (150 mg total) by mouth daily 135 tablet 3 5 Active diazePAM (VALIUM) 2 mg tablet Ok for diazepam 2mg 1 hour prior to MRI, ok to repeat x1 before MRI if needed. MUST have jinrikisha driver 2 tablet 4 025 Discontinu ed(Therapy completed) loratadine (CLARITIN) 10 mg tablet Take 1 tablet (10 mg total) by mouth daily 025 Discontinu ed(Therapy completed) nitrofurantoin monohydrate (MACROBID) 100 mg capsuleIndicati ons:urinary tract infection Take 1 capsule (100 mg total) by mouth 2 (two) times a day for 7 days 14 capsule 5 025 Hospital, Clinic, or Other Facility Administered Medication Ordered Dose Route Frequency Start Date End Date Status nitrofurantoin (MACRODANTIN) capsule 200 mgIndications:Prophylaxis, Medical 200 mg oral Once 07/22/2024 07/22/2024 Ended onabotulinumtoxin A (BOTOX) injection 100 UnitsIndications:Mixed stress and urge urinary incontinence,Urge incontinence of urine 100 Units IM Once 07/22/2024 07/22/2024 End ed Active Problems Patient Care Coordination No te Formatting of this note migh t be different from the original. Referring provider: Dr. Yaw Gibbs Ms. Jodie Valentin is a 63-year-old with multiple lung nodules. She initially presented with symptoms of a cough, shortness of breath and chest pain. On 05/20/2024 the patient underwent chest CT with contrast which showed a right upper lobe solid lung nodule measuring 0.6 cm. A 0.5 cm nodule along the right minor fissure. Numerous additional scattered bilateral sub 6 mm pulmonary nodule seen. There is a 3 mm right upper lobe lung nodule. There is a 2 mm left lower lobe lung nodule. On 06/04/2024 the patient underwent pulmonary function testing which showed an FEV1 of 112% of predicted and a DLCO of 115% of predicted. On 05/20/2024 the patient underwent a stress echo which showed no definitive ischemia on stress EKG. There was no echocardiographic evidence of ischemia. Patient has a history of rheumatoid arthritis on leflunomide. She is a never smoker. Patient presents today for further surgical evaluation. Problem Noted Date Diagnosed Date Stage 3b chronic kidney disease (HCC) [N18.32] 0 08/06/2024 Class 2 severe obesity due t o excess calories with serious comorbidity and body mass index (BMI) of 36.0 to 36.9 in adult (HCC) [E66.812, E66.01, Z68.36] 07/31/2024 BMI 36.0-36.9,adult 07/31/2024 Shortness of breath 06/04/2024 Situational depression 05/06/2024 Recurrent major depressive disorder, in remissio n 10/18/2023 Snoring 10/18/2023 Chronic midline thoracic back pain 12/27/2022 Shingles 11/23/2022 Stage 3a chronic kidney disease 09/27/2022 Assessment & Plan (02/13/2024 12:56 PM CDT): Kidney function stable Recommending follow-up with power plant operator apprentice to discuss further treatment of hypertension Internal hemorrhoids 09/27/2022 Seasonal allergies 09/27/2022 Varicose vein of leg 09/27/2022 Osteopenia of neck of femur 08/31/2022 Overview (08/31/2022): T-score femoral neck 08/2022= -1.5 Frax is 19/1 Adjustment for TBS 19/1.1 Assessment & Plan (08/31/2022 10:15 AM SOLUTIONS ANALYST): At this point we will observe and not use medication. We focussed on prevention and analysis over time Calcium and D After the essential part of today's visit, I again reviewed the patient's total calcium intake. We discussed that optimum calcium intake for bone health is critical. The total amount to achieve via diet (preferred) and supplements is 1000-1200mg daily, not more than this. We discussed different foods and accessories to make that goal realized. I referenced the handout in our brochure. I discussed how to maintain adequate Vitamin D levels best, and that is via supplementation, especially from until . Exercise and balance While the focus of the visit has been on bone strength-promoting treatments, we reviewed how balance (proprioception) serves as our s ixth sense. Improving balance plus strength-building exercises are, in my opinion, as important as medications to reduce the risk of fracture. I discussed and provided some straightforward and safe one-foot balance promotion exercises and demonstrated how to do these. Vaginal atrophy 08/21/2022 Assessment & Plan (12/20/2022 9:55 AM CDT): -continue twice weekly VET Pelvic floor dysfunction in female 08/21/2022 Assessment & Plan (12/20/2022 9:56 AM CDT): -continue PFPT and home exercises Mixed stress and urge urinary incontinence 08/21 Assessment & Plan (12/20/2022 9:58 AM CDT): -she reports approximately 80% improvement in her urinary symptoms with PFPT and lifestyle modifications and would like to hold off on additional intervention at this time. She may consider Botox in the future. -continue current regimen and return in 6 months for follow up or sooner as needed. We discussed that consistency with PFPT exercises is matthews to continued success of treatment. Urinary incontinence 06/01/2022 Raynaud's phenomenon without gangrene 07/14/2021 Slow transit constipation 07/14/2021 Assessment & Plan (02/13/2024 12:50 PM CDT): Recommend patient take MiraLax as needed for constipation in addition to current fiber supplement. Colon polyp 07/13/2021 Diverticulosis 07/13/2021 Ulceration of colon determined by endoscopy 06/25 History of colitis 07/13/2021 Atherosclerosis of aorta 05/12/2021 Rheumatoid arthritis 03/25/2021 Prediabetes 11/29/2020 Class 2 severe obesity due t o excess calories with serious comorbidity and body mass index (BMI) of 35.0 to 35.9 in adult 08/05/2020 Other irritable bowel syndrome 08/05/2020 Medical marijuana use 08/04/2020 Hearing loss 08/04/2020 Gout 08/04/2020 History of seizures 08/04/2020 History of Helicobacter pylori infection 021 Chronic pain syndrome 07/30/2019 Other spondylosis with radiculopathy, lumbar reg ion 05/05/2019 Hip pain 11/22/2017 Pain of lower extremity 05/03/2017 Hyperlipidemia 05/19/2015 Vitamin D deficiency 05/19/2015 Eosinophilic esophagitis 01/25/2015 Chronic midline low back pain without sciatica 0 01/25/2015 Assessment & Plan (04/24/2023 10:30 AM CDT): Experiencing an increase in chronic pain Scheduled for injection in coming weeks Would like refill of norco; taking without side effects Will send refill request to Dr. Gibbs Essential hypertension 06/13/2012 Assessment & Plan (04/30/2024 1:34 PM SOLUTIONS ANALYST): BP elevated today She is angry and crying. Also has severe pain today Assessment & Plan (03/14/2024 3:36 PM CDT): Off clonidine per power plant operator apprentice and BP has been stable at home Assessment & Plan (02/13/2024 12:49 PM CDT): BP labile at home Noting unwanted side effects from clonidine Discussed management with PCP, recommending follow up with [facility] due to kidney disease Resolved Problems Problem Noted Date Diagnosed Date Resolved Date H/O: HTN (hypertension) 08/10/2023 04/2 10/2023 Acute cystitis with hematuria 08/10/2023 10/18/2023 Mild episode of recurrent ma conrad depressive disorder 04/19/2022 10/18/2023 Ischemic colitis 08/17/2021 10/18/2023 Encounter for preventive health examination 09/04/2017 03/13/2018 Skin lesion 09/04/2017 03/13/2018 Upper respiratory tract infection 09/04/2017 03/13/2018 Increased frequency of urination 09/27/2015 03/13/2018 Colon cancer screening 11/17/201403/13 Encounter for initial preven tive physical examination covered by Medicare 11/17/2014 12/26/19 24 Immunizations Name Administration Dates Next Due COVID-19 MRNA (MODERNA) .5 M L (50 MCG) VACCINE (12 YEARS AND UP) 02/23/2023 COVID-19 mRNA (PFIZER) 0.3 m L (30 mcg) vaccine (12 years and up) 02/29/2024 Hep A, Adult 09/04/2017,10/06/2016 Hep A, Unspecified 09/04/2017,10/06/2016 Influenza, Quadrivalent, Hig h Dose, Preservative Free, Intrr 03/25/2023 Influenza, Quadrivalent, Spl it, Preservative Free, Intramuscular 04/04/2022,03/12/2020,03/06/2017 Influenza, Trivalent, High D ose, Split, Preservative Free, Intramuscular 02/29/2024 Influenza, Trivalent, IM (MDV) 03/14/2021,2014,04/16/2014 Influenza, Trivalent, Preser vative Free, Intramuscular 05/05/2015 Influenza, Trivalent, Split, Preservative Free, Intradermal 03/02/2016 Influenza, Unspecified 03/25/2019,03/25/2018 Jeffrey (J&J) SARS-CoV-2 Vaccination 08/23/2020 Moderna SARS-CoV-2 Monovalen t Vaccination (12+ YRS) 06/25/2021 Pneumococcal Polysaccharide PPV23 08/05/2020 RSV Vaccine, Pref, Recombina nt, Subunit, Adjuvanted, PF, IM (Arexvy) 04/25/2023 Tdap 09/27/2021,06/13/2012 Typhoid Live 07/25/2018,09/23/2016 ZOSTER LIVE 05/05/2015 ZOSTER Recombinant 02/23/2023 Social History Tobacco Use Types Packs/Day Years Used Date Smoking Tobacco: Never Cigarettes Smokeless Tobacco: Never Tobacco Cessation:Counseling Given: Not Answered Alcohol Use Standard Drinks/Week Comments Yes 0 (1 standard drink = 0.6 oz pure alcohol) couple drinks a few times per year AUDIT-C Answer Date Recorded Q1: How often do you have a drink containing alc ohol? Monthly or less 12/28/2022 Q2: How many drinks containi ng alcohol do you have on a typical day when you are drinking? 1 or 2 12/28/2022 Q3: How often do you have si x or more drinks on one occasion? Never 12/28/2022 PHQ-2 Answer Date Recorded PHQ-2 Total Score (If total score is 3 or more points, staff should administer the PHQ-9) 0 10/15/2023 Personal Safety Answer Date Recorded Have you ever been in or are you currently in a harmful physical or emotional relationship or is someone making you feel afraid or unsafe? Denies 11/13/2023 Comments No Sex and Gender Information Value Date Recorded Sex Assigned at Not on file Legal Sex Female 1:02 AM SOLUTIONS ANALYST Gender Identity Female 10/10/2023 1:18 PM CDT Sexual Orientation Straight 03/13/2024 9: 10 AM CDT 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 Not on file Not on file Not on file Last Filed Vital Signs Vital Sign Reading Time Taken Comments Blood Pressure 147/77 07/31/2024 12:36 PM SOLUTIONS ANALYST Pulse 90 07/31/2024 12:36 PM SOLUTIONS ANALYST Temperature 36.4 C (97.6 F) 12/04/2023 9:45 AM CDT Respiratory Rate 16 06/12/2024 9:02 AM SOLUTIONS ANALYST Oxygen Saturation 96% 07/31/2024 12:36 PM SOLUTIONS ANALYST Inhaled Oxygen Concentration - - Weight 93.3 kg (205 lb 9.6 oz) 07/31/2024 12:36 PM SOLUTIONS ANALYST Height 160 cm (5' 3 ) 07/31/2024 12:36 PM SOLUTIONS ANALYST Body Mass Index 36.42 07/31/2024 12:36 PM SOLUTIONS ANALYST Plan of Treatment Not on file Goals Goal Patient Goal Type Associated Problems Recent Progress Patient-Stated? Author CCM Chronic Pain Care Plan Chronic Care Management No Zahra Olmstead, RN Note: Problem: Chronic Pain Goals: 1. Minimize further functional decline 2. Maximize quality of life 3. Control pain Strategies: - Activity/exercise program recommendation - Conservative stepwise pain medicine strategy with multi-disciplinary approach - Recommend healthy lifestyle strategies and compensatory methods as needed Medical Devices Implanted Type Area Broach Operator Device Identifier Shelf Expiration Date Model / Serial / Lot Arthroplasty Knee Anchors Pelvis Procedures Procedure Name Priority Date/Time Associated Diagnosis Comments [id number] PHENOTYPE Routine 07/31/2024 1:51 PM SOLUTIONS ANALYST Pulmonary emphysema, unspecified emphysema type (HCC) POCT URINALYSIS DIPSTICK Routine 07/22/2024 2:37 PM SOLUTIONS ANALYST Mixed stress and urge urinary incontinence VITAMIN D 25 HYDROXY Routine 07/17/2024 11:17 AM SOLUTIONS ANALYST Spinal stenosis, lumbar region, with neurogenic claudication Essential hypertension Mixed hyperlipidemia Class 2 severe obesity due to excess calories with serious comorbidity and body mass index (BMI) of 35.0 to 35.9 in adult (HCC) Vitamin D deficiency HEMOGLOBIN A1C Routine 07/17/2024 11:17 AM SOLUTIONS ANALYST Spinal stenosis, lumbar region, with neurogenic claudication Essential hypertension Mixed hyperlipidemia Class 2 severe obesity due to excess calories with serious comorbidity and body mass index (BMI) of 35.0 to 35.9 in adult ([facility]) Vitamin D deficiency Other abnormal glucose LIPID PANEL Routine 07/17/2024 11:17 AM SOLUTIONS ANALYST Spinal stenosis, lumbar region, with neurogenic claudication Essential hypertension Mixed hyperlipidemia Class 2 severe obesity due to excess calories with serious comorbidity and body mass index (BMI) of 35.0 to 35.9 in adult ([facility]) Vitamin D deficiency CRP, HIGH SENSITIVITY Routine 07/17/2024 11:17 AM SOLUTIONS ANALYST Spinal stenosis, lumbar region, with neurogenic claudication Essential hypertension Mixed hyperlipidemia Class 2 severe obesity due to excess calories with serious comorbidity and body mass index (BMI) of 35.0 to 35.9 in adult ([facility]) Vitamin D deficiency ERYTHROCYTE SEDIMENTATION RATE Routine 07/17/2024 11:17 AM SOLUTIONS ANALYST Spinal stenosis, lumbar region, with neurogenic claudication Essential hypertension Mixed hyperlipidemia Class 2 severe obesity due to excess calories with serious comorbidity and body mass index (BMI) of 35.0 to 35.9 in adult ([facility]) Vitamin D deficiency TRANSFORAMINAL EPIDURAL INJECTION LUMBAR SACRAL 1 LEVEL LEFT Schedule Routine, Read Routine (OP Routine) 06/12/2024 8:55 AM SOLUTIONS ANALYST Spinal stenosis, lumbar region, with neurogenic claudication Lumbar spondylosis Lumbar radicular pain PULMONARY FUNCTION TEST (PFT) Routine 06/04/2024 9:03 AM SOLUTIONS ANALYST Shortness of breath URINALYSIS, MICROSCOPIC ONLY Routine 05/30/2024 10:33 AM SOLUTIONS ANALYST Urinary frequency URINALYSIS AND REFLEX TO MICROSCOPIC Routine 05/30/2024 10:33 AM SOLUTIONS ANALYST Urinary frequency URINE CULTURE Routine 05/30/2024 10:33 AM SOLUTIONS ANALYST Urinary frequency SCREENING MAMMOGRAM BILATERAL W KENROY Schedule Routine, Read Routine (OP Routine) 05/27/2024 8:19 AM SOLUTIONS ANALYST Screening mammogram, encounter for CT CHEST W CONTRAST Schedule Routine, Read Routine (OP Routine) 05/20/2024 1:01 PM SOLUTIONS ANALYST Shortness of breath Atypical chest pain STRESS ECHO PHARMACOLOGIC WO DOPPLER/CF WO CONTRAST Routine 05/20/2024 12:29 PM SOLUTIONS ANALYST Shortness of breath Atypical chest pain Chronic pain syndrome CREATININE, WHOLE BLOOD STAT 05/20/2024 10:57 AM SOLUTIONS ANALYST MRI LUMBAR SPINE WO CONTRAST Schedule Routine, Read Routine (OP Routine) 05/12/2024 7:23 PM SOLUTIONS ANALYST Spinal stenosis, lumbar region, with neurogenic claudication Low back pain with radiation Lumbar spondylosis Spondylolisthesis of lumbar region HEPATITIS C ANTIBODY Routine 12/13/2023 12:54 PM CDT Rheumatoid arthritis of multiple sites without rheumatoid factor (CMS/HCC) (HCC) Encounter for long-term (current) use of other medications DEXA TBS AXIAL SKELETON BONE DENSITY 1 OR MORE SITES Schedule Routine, Read Routine (OP Routine) 08/31/2022 9:19 AM SOLUTIONS ANALYST Age-related osteoporosis without current pathological fracture COLONOSCOPY Routine 07/26/2022 PAP SMEAR WITH HPV Routine 06/25/2016 from Last 3 Months or Most Recently Relevant to Health Maintenance Results * Bhmvb-1-khmrftgyvbh phenotype (07/31/2024 1:51 PM SOLUTIONS ANALYST) alpha-1 antitrypsin 169 100 - 190 mg/dL [facility] Comment: ADDITIONAL INFORMATION Method: Nephelometry Test Performed by: [facility] [place] [facility] [address] [place] [address] [employer]crete Boom Pump Operator: Reyna Gillis Ph.D.; CLIA# [id number] alpha-1 antitrypsin phenotype MM bands [facility] Comment: A single M isoform is detected. In the context of a normal tbhoa-3-dtzgeqifpan concentration, this is consistent with an MM phenotype. ADDITIONAL INFORMATION Method: Isoelectric Focusing, This assay identifies the phenotype of the circulating qmpkc-5-pbgpvustntc (A1A) protein. If the patient is on replacement therapy or has been recently transfused, the phenotype will detect patient and replacement or transfused plasma A1A protein. This test also cannot detect a null allele which could be responsible for an A1A deficiency. Blood 07/31/2024 1:51 PM SOLUTIONS ANALYST 07/31/2024 4:15 PM SOLUTIONS ANALYST Maryjo Moeller MD LAB BLOOD ORDERABLES Final Result [facility] [address] Department [place] [address] [facility] * POCT urinalysis dipstick (07/22/2024 2:37 PM SOLUTIONS ANALYST) Color, Urine, POC Davis Clarity, ur, POC Clear Clear Glucose, ur, POC Negative Negative MG/DL Bilirubin, ur, POC Negative Negative, Small, Moderate, Large Ketones, ur, POC Negative Negative Specific [place], POC 1.010 1.003 - 1.030 Blood, ur, POC Negative Negative pH, ur, POC 5.0 5.0 - 8.0 Protein, ur, POC Negative Negative Urobilinogen, urine, POC 0.2 0.2 - 1.0 mg/dL Nitrite, ur, POC Negative Negative Leukocytes, ur, POC Negative Negative Lot Number [id number] Urine 07/22/2024 2:37 PM SOLUTIONS ANALYST Modesto Hardy MD POINT OF CARE TEST ORDERABL ES Final Result * Vitamin D 25 hydroxy (07/17/2024 11:17 AM SOLUTIONS ANALYST) Pathologist [facility] Vitamin D 25-OH 68 30 - 80 ng/mL Blood 07/17/2024 11:1 7 AM SOLUTIONS ANALYST 07/17/2024 8:12 PM SOLUTIONS ANALYST Claudia Peace NP LAB BLOOD ORDERABLES Lulu l Result Performing Organization Address City/[facility] Co de Phone Number URIAH [address] [employer] [place], [place] [id number] * (ABNORMAL) Erythrocyte sedimentation rate (07/17/2024 11:17 AM SOLUTIONS ANALYST) [facility] Erythrocyte sedimentation rate 31(H) 1 - 30 mm/hr Blood 07/17/2024 11:1 7 AM SOLUTIONS ANALYST 07/17/2024 8:12 PM SOLUTIONS ANALYST Claudia Peace NP LAB BLOOD ORDERABLES Lulu l Result Performing Organization Address [facility] de Phone Number [facility] [address] [address] [employer] [address] [place], [place] [id number] * CRP (cardiac risk) (07/17/2024 11:17 AM SOLUTIONS ANALYST) [facility] hsCRP 14.54 mg/L Comment: Interpretive data Adult only - values greater than or equal to 10 mg/L are consistent with infection or inflammation. Individuals with evidence of active infection, systemic inflammatory processes, or trauma should not be tested until these conditions have abated. When using HS CRP to assess cardiovascular risk, two measurements should be taken, two weeks apart (averaging results). The CDC/AHA recommended the following HS CRP cut off points (tertiles) for CVD assessment. Adult low risk <1.0 mg/L Average risk 1.0 - 3.0 mg/L High Risk >3.0 mg/L Current interpretive data was last revised on 2018. Testing performed by: [facility], [address] [place]., [address] Blood 07/17/2024 11:1 7 AM SOLUTIONS ANALYST 07/18/2024 10:00 AM SOLUTIONS ANALYST Claudia Peace TAX SERVICES SPECIALIST LAB BLOOD ORDERABLES Lulu ceballos Result Performing Organization Address [facility] de Phone Number URIAH [address] [facility] [place] [address] * (ABNORMAL) Hemoglobin A1c (07/17/2024 11:17 AM SOLUTIONS ANALYST) Hgb A1C 5.8(H) 4.0 - 5.6 % Estimated Average Glucose 120 mg/dL URIAH Comment: The ADA recommends reporting an estimated Average Glucose (eAG) with all Hemoglobin A1c results using the equation derived from a study of 507 normal and diabetic adults. Minority populations were underrepresented and children were not included. (Diabetes Care 31:0946-7910, 2008). The eAG is not equivalent to a fasting glucose. Blood 07/17/2024 11:1 7 AM SOLUTIONS ANALYST 07/17/2024 8:12 PM SOLUTIONS ANALYST Claudia Peace NP LAB BLOOD ORDERABLES Lulu ceballos Result Performing Organization Address [facility] de Phone Number URIAH [address] [facility] [place] [address] * (ABNORMAL) Lipid panel (07/17/2024 11:17 AM SOLUTIONS ANALYST) Cholesterol 186 30 - 199 mg/dL Comment: Interpretive Data Ages < or = 19 years Acceptable: <170 mg/dL Borderline high: 170-199 mg/dL High: >or= 200 mg/dL Ages > or = 20 years Desirable: <200 mg/dL Borderline high: 200-239 mg/dL High: >or= 240 mg/dL Literature References: 1. Expert Panel on Integrated Guidelines for Cardiovascular Health and Risk Reduction in Children and Adolescents. Pediatrics 2011;128:S213 2. NCEP Expert Panel. Circulation 2004;110:227 Current Interpretive Data was last revised on 2018. Triglycerides 275(H) <=149 mg/dL URIAH CARSON Comment: Interpretive Data Ages < or = 9 years Acceptable: <75 mg/dL Borderline high: 75-99 mg/dL High: >or= 100 mg/dL Ages 10 to 20 years Acceptable: <90 mg/dL Borderline high: 90-129 mg/dL High: >or= 130 mg/dL Ages > or = 20 years Desirable: <150 mg/dL Borderline high: 150-199 mg/dL High: 200-499 mg/dL Very high: >or= 499 mg/dL Literature References: 1. Expert Panel on Integrated Guidelines for Cardiovascular Health and Risk Reduction in Children and Adolescents. Pediatrics 2011;128:S213 2. NCEP Expert Panel. Circulation 2004;110:227 Current Interpretive Data was last revised on 2018. HDL 43 >=40 mg/dL URIAH Comment: Interpretive Data Ages < or = 19 years Acceptable: >45 mg/dL Borderline low: 40-45 mg/dL Low: <40 mg/dL Ages > or = 20 years Desirable: >or= 60 mg/dL Low: <40 mg/dL Literature References: 1. Expert Panel on Integrated Guidelines for Cardiovascular Health and Risk Reduction in Children and Adolescents. Pediatrics 2011;128:S213 2. NCEP Expert Panel. Circulation 2004;110:227 Current Interpretive Data was last revised on 2018. LDL, calculated 97 <=129 mg/dL URIAH Comment: Interpretive Data Ages < or = 19 years Acceptable: <110 mg/dL Borderline high: 110-129 mg/dL High: >or= 130 mg/dL Ages > or = 20 years Optimal: <100 mg/dL Near optimal: 100-129 mg/dL Borderline high: 130-159 mg/dL High: >160 mg/dL Calculated using the Jason LDL-C estimating equation. This equation was implemented on 2024. Prior to this date LDL-C was estimated using the Friedewald equation. Literature References: 1. Expert Panel on Integrated Guidelines for Cardiovascular Health and Risk Reduction in Children and Adolescents. Pediatrics 2011;128:S213 2. NCEP Expert Panel. Circulation 2004;110:227 3. Jason Sullivan al. DOMENICA Cardiol. 2019October 23;5(5):540-548. doi: 10.1001/jamacardio.2020.0013 Current Interpretive Data was last revised on 2024. Non-HDL Cholesterol 143 mg/dL URIAH CARSON Comment: Interpretive Data Ages < or = 19 years Acceptable: <120 mg/dL Borderline high: 120-144 mg/dL High: >145 mg/dL Ages > or = 20 years When triglycerides are >200 mg/dL, Non-HDL cholesterol is a secondary target of therapy with treatment goals that are 30 mg/dL greater than the LDL cholesterol target. Literature References: 1. Expert Panel on Integrated Guidelines for Cardiovascular Health and Risk Reduction in Children and Adolescents. Pediatrics 2011;128:S213 2. NCEP Expert Panel. Circulation 2004;110:227 Current Interpretive Data was last revised on 2018. Chol/HDL ratio 4 URIAH CARSON Blood 07/17/2024 11:1 7 AM SOLUTIONS ANALYST 07/17/2024 8:12 PM SOLUTIONS ANALYST us Claudia Peace TAX SERVICES SPECIALIST LAB BLOOD ORDERABLES Lulu l Result Performing Organization Address City/[facility]/ZIP Co de Phone Number URIAH [address] Department [place] [address] * IR Transforaminal Epidural Injection Lumbar Sacral 1 Level Left (06/12/2024 8:55 AM SOLUTIONS ANALYST) Narrative [id number] - 06/12/2024 8:55 AM SOLUTIONS ANALYST The images from this study are not interpreted by Radiology. Please refer to the physician's procedure / OR operative note. us Calixto Sweet MD IMG IR PROCEDURES Final Result Performing Organization Address City/[facility]/ZIP Co de Phone Number [email or web address] * Pulmonary Function Test - (06/04/2024 9:03 AM SOLUTIONS ANALYST) FVC PRE 3.17 L [facility] FVC %PRE PRED 110 % [facility] FEV1 PRE 2.53 L [facility] FEV1 %PRE PRED 112 % [facility] FEV1/FVC PRE 79.9 % [facility] FRC PL PRE 3.[address] [facility] FRC PL %PRE PRED 116 % [facility] RV PRE 2.74 L [facility] RV %PRE PRED 133 % [facility] TLC PRE 5.99 L [facility] TLC %PRE PRED 122 % [facility] DLCO PRE 21.8 ml/min/mmH g [facility] DLCO %PRE PRED 115 % [facility] Anatomical Region Laterality Modality PFT 06/04/2024 8:49 AM SOLUTIONS ANALYST Narrative 06/04/2024 1:58 PM SOLUTIONS ANALYST PFT performed at:->[facility] Adult PFT Lab- [id number] Procedure:->Standard Standard:->Spirometry, Spirometry w/bronchodilator, DLCO and Lung Volumes Pulmonary Function Test Interpretation SPIROMETRY: Spirometry did not meet standards of acceptability and reproducibility. This diminishes the reliability of the results. The FEV1 and FVC are normal. The FEV1 to FVC ratio is normal. The inspiratory loop is normal. LUNG VOLUMES: TLC measured by plethysmography is increased. There is an isolated increase in RV of uncertain significance. Overweight status may be the cause of the decreased ERV. DLCO: The diffusing capacity is normal. Impression: There is no significant ventilatory defect. There is air trapping. There is hyperinflation. There is no impairment of alveolar gas exchange by DLCO. The attending pulmonary physician certifies a physician presence in the [facility] during the administration of aerosolized bronchodilator. The attending pulmonary physician certifies that he/she has reviewed and interpreted the graphic and numerical data of this pulmonary function study and agrees with the written final report. The lower limit of normal for PaO2 and %HbO2 is age dependent. However, the [facility] Pulmonary Function Laboratory defines hypoxemia as a PaO2 <56 mm Hg or a %HbO2 <89%. Rey Alexander [facility] PFT ORDERABLES Final Resu lt * (ABNORMAL) Urinalysis reflex to microscopic (05/30/2024 10:33 AM SOLUTIONS ANALYST) Color, ur Straw Yellow Clarity, ur Clear Clear [facility] Specific gravity, ur 1.008 1.003 - 1.030 [facility] pH, urine 5.5 [facility] Comment: Interpretive Data U rine pH is affected by diet, medications, systemic acid-base disturbances, and renal tubular function. pH may affect urinary stone formation. For example, urine pH below 6.0 may help reduce the tendency for calcium phosphate stones and pH greater than 6.0 may reduce the tendency for uric acid stone formation. Source: [facility] Current Interpretive Data was last revised on 2017 Protein, ur ql Negative Negative [facility] Glucose, ur ql Negative Negative [facility] Ketones, ur Negative Negative [facility] Bilirubin, ur Negative Negative [facility] Blood, ur Trace(A) Negative [facility] Urobilinogen, ur <2.0 <2.0 mg/dL [facility] Nitrite, ur Negative Negative [facility] Leukocyte esterase, ur Negative Negative [facility] UA reflex comment Reflex to microscopic UA will be performed. [facility] Urine, clean voided 05/30/2024 10:33 AM SOLUTIONS ANALYST 05/30/2024 3:53 PM SOLUTIONS ANALYST Modesto Hardy MD LAB URINE ORDERABLES Final Result Performing Organization Address [facility] de Phone Number URIAH YAMILETH [address] [place], [place] [id number] * (ABNORMAL) Urinalysis, microscopic only (05/30/2024 10:33 AM SOLUTIONS ANALYST) WBC, ur 0-5 0 - 5 /HPF RBC, ur 0-2 0 - 2 /HPF [facility] Epithelial cells, squamous, ur 1-5 0 - 5 /HPF [facility] Mucous, ur Present(A) [facility] Urine, clean voided 05/30/2024 10:33 AM SOLUTIONS ANALYST 05/30/2024 3:53 PM SOLUTIONS ANALYST us Modesto Hardy MD LAB URINE ORDERABLES Final Result Performing Organization Address City/[facility] Co de Phone Number URIAH CARSON [address] [facility] [employer] [place], [place] [id number] * Urine culture Urine, clean voided (05/30/2024 10:33 AM SOLUTIONS ANALYST) Report Final Report: Less than 100,000 colonies/mL (clinically insignificant growth based on current clinical standards) Comment:Testing performed by : [facility], [address] [facility], [place]., [address] Organism (CLINICALLY INSIGNIFICANT GROWTH URIAH CARSON Urine, clean voided 05/30/2024 10:33 AM SOLUTIONS ANALYST 05/30/2024 6:24 PM SOLUTIONS ANALYST Narrative HUNTERFATIMAH - 05/31/2024 8:14 PM SOLUTIONS ANALYST Testing performed by [facility] Microbiology Laboratory ([phone]) us Modesto Hardy MD LAB MICROBIOLOGY - GENERAL ORDERABLES Final Result URIAH [address] [address] Department [place] [address] * Screening Mammogram Bilateral W [place] (05/27/2024 8:19 AM SOLUTIONS ANALYST) Anatomical Region Laterality Modality Breast Bilateral Mammography Narrative 05/28/2024 12:19 PM SOLUTIONS ANALYST Mammogram Technique: Bilateral Digital Breast Tomosynthesis, Bilateral C-view 2D Screening mammogram. Views obtained: bilateral craniocaudal and bilateral mediolateral oblique. Computer Aided Detection was performed. Mammogram Findings: The present examination has been compared to prior imaging studies performed at [facility] on 07/25/2018, 11/01/2021 and 05/16/2023. There are scattered areas of fibroglandular density. There is no suspicious abnormality in either breast. Impression: There is no mammographic evidence of malignancy. Annual screening mammography is recommended. OVERALL FINAL ASSESSMENT: BI-RADS CATEGORY 1: Negative. Procedure Note Nova Sanders MD - 05/28/2024 Mammogram Technique: Bilateral Digital Breast Tomosynthesis, Bilateral C-view 2D Screening mammogram. Views obtained: bilateral craniocaudal and bilateral mediolateral oblique. Computer Aided Detection was performed. Mammogram Findings: The present examination has been compared to prior imaging studies performed at [facility] on 07/25/2018, 11/01/2021 and 05/16/2023. There are scattered areas of fibroglandular density. There is no suspicious abnormality in either breast. Impression: There is no mammographic evidence of malignancy. Annual screening mammography is recommended. OVERALL FINAL ASSESSMENT: BI-RADS CATEGORY 1: Negative. us Self Screening Mammogram IMG MAMMO PROCEDURES Fi nal Result * CT Chest W Contrast (05/20/2024 1:01 PM SOLUTIONS ANALYST) Anatomical Region Laterality Modality Body N/A Computed Tomogra phy 05/24/2024 5:01 PM SOLUTIONS ANALYST Narrative 05/24/2024 5:15 PM SOLUTIONS ANALYST EXAM DESCRIPTION: CT CHEST W CONTRAST REASON FOR STUDY: Cough SOB and chest pain x 1 month TECHNIQUE: CT scan of the chest performed with intravenous contrast using helical scanning technique with dynamic intravenous contrast injection. Reconstructed coronal and sagittal MPR images reviewed. All images stored on PACS. Automated exposure control was used as a dose optimization technique for this examination. CONTRAST TYPE/DOSE: 100mL of IOVERSOL 350 MG IODINE/ML INTRAVENOUS SYRINGE injected via intravenous COMPARISON: None FINDINGS: LUNGS: Mild centrilobular pulmonary emphysema. No focal pneumonic consolidation or pulmonary edema. Mild right middle lobe atelectasis. Right upper lobe solid noncalcified pulmonary nodule (image 27) measures 0.6 cm. 0.5 cm pulmonary nodule along the right minor fissure (image 73). Numerous additional scattered bilateral sub 6 mm pulmonary nodules are seen. For reference, there is a 3 mm right upper lobe solid noncalcified pulmonary nodule (image 61). 2 mm left lower lobe solid noncalcified pulmonary nodule (image 53). Central airways are patent. PLEURA: No effusion. No pneumothorax. MEDIASTINUM/AIME: No identified masses or abnormal nodes. HEART: Heart size is normal with no pericardial effusion. VASCULATURE: Minimally aneurysmal ascending thoracic aortic aneurysm measuring 4.1 cm at the level of the main pulmonary artery. No large central pulmonary embolus. AXILLA: No adenopathy. CHEST WALL: No masses. No subcutaneous air. HARDWARE/LINES/TUBES: None. UPPER ABDOMEN: No significant abnormality. MUSCULOSKELETAL: Rotatory levoscoliosis of the thoracic spine. Mild anterolisthesis T10 on T11 and uncovering of the disc and a poorly visualized/incompletely evaluated disc bulge. Incompletely evaluated significant right glenohumeral joint osteoarthritis. OTHER: No other significant abnormality. IMPRESSION: No acute findings in the lungs to explain the patient's chest pain. Mild centrilobular pulmonary emphysema. Recommend evaluation for annual lung cancer screening enrollment if the patient qualifies based on clinical factors and smoking history. Multiple bilateral solid noncalcified pulmonary nodules measuring up to 0.6 cm. Per Fleischner Society Guidelines, non-contrast chest CT at 3-6 months is recommended. If the nodules are stable at time of repeat CT, then future CT at 18-24 months (from today's scan) is considered optional for low-risk patients, but is recommended for high-risk patients. Minimally aneurysmal ascending thoracic aortic aneurysm measuring 4.1 cm at the level of the main pulmonary artery. THIS IS AN ELECTRONICALLY VERIFIED FINAL REPORT 05/24/2024 5:15 PM - Electronically signed by Angelo Reese M.D. BB: HIGINIO Report ID: [id number] Reading Location: [id number] Procedure Note Angelo Reese MD PhD - 05/24/2024 EXAM DESCRIPTION: CT CHEST W CONTRAST REASON FOR STUDY: Cough SOB and chest pain x 1 month TECHNIQUE: CT scan of the chest performed with intravenous contrast using helical scanning technique with dynamic intravenous contrast injection. Reconstructed coronal and sagittal MPR images reviewed. All images storedon PACS. Automated exposure control was used as a dose optimizationtechnique for this examination. CONTRAST TYPE/DOSE: 100mL of IOVERSOL 350 MG IODINE/ML INTRAVENOUS SYRINGE injected via intravenous COMPARISON: None FINDINGS: LUNGS: Mild centrilobular pulmonary emphysema. No focal pneumonic consolidation or pulmonary edema. Mild right middle lobe atelectasis.Right upper lobe solid noncalcified pulmonary nodule (image 27) measures 0.6 cm. 0.5 cm pulmonary nodule along the right minor fissure (image 73).Numerous additional scattered bilateral sub 6 mm pulmonary nodules are seen. For reference, there is a 3 mm right upper lobe solid noncalcified pulmonary nodule (image 61). 2 mm left lower lobe solid noncalcified pulmonarynodule (image 53). Central airways are patent. PLEURA: No effusion. No pneumothorax. MEDIASTINUM/AIME: No identified masses or abnormal nodes. HEART: Heart size is normal with no pericardial effusion. VASCULATURE: Minimally aneurysmal ascending thoracic aortic aneurysm measuring 4.1 cm at the level of the main pulmonary artery. No largecentral pulmonary embolus. AXILLA: No adenopathy. CHEST WALL: No masses. No subcutaneous air. HARDWARE/LINES/TUBES: None. UPPER ABDOMEN: No significant abnormality. MUSCULOSKELETAL: Rotatory levoscoliosis of the thoracic spine. Mild anterolisthesis T10 on T11 and uncovering of the disc and a poorly visualized/incompletely evaluated disc bulge. Incompletely evaluated significant right glenohumeral joint osteoarthritis. OTHER: No other significant abnormality. IMPRESSION: No acute findings in the lungs to explain the patient's chest pain. Mild centrilobular pulmonary emphysema. Recommend evaluation for annuallung cancer screening enrollment if the patient qualifies based on clinicalfactors and smoking history. Multiple bilateral solid noncalcified pulmonary nodules measuring up to0.6 cm. Per Fleischner Society Guidelines, non-contrast chest CT at 3-6 monthsis recommended. If the nodules are stable at time of repeat CT, then futureCT at 18-24 months (from today's scan) is considered optional for low-riskpatients, but is recommended for high-risk patients. Minimally aneurysmal ascending thoracic aortic aneurysm measuring 4.1 cmat the level of the main pulmonary artery. THIS IS AN ELECTRONICALLY VERIFIED FINAL REPORT 05/24/2024 5:15 PM - Electronically signed by Angelo Reese M.D. BB: HIGINIO Report ID: [id number] Reading Location: [id number] us Rey Alexander DNP IM CT PROCEDURES Final Re sult * STRESS ECHO PHARMACOLOGIC WO DOPPLER/CF WO CONTRAST (05/20/2024 12:29 PM SOLUTIONS ANALYST) Anatomical Region Laterality Modality Ultrasound, Nucl ear Medicine 05/20/2024 11:4 9 AM SOLUTIONS ANALYST Narrative 05/20/2024 1:40 PM SOLUTIONS ANALYST [address] [place] [address] Dobutamine Stress Echocardiogram Report Patient Name: JODIE VALENTIN : 1960 Study Date: 05/20/2024 11:49:58 AM Gender: F Tech: AA Ref Provider: REY ALEXANDER Height(Cm): BSA: Weight(Kg): Quality: Good Order Provider: REY ALEXANDER PROCEDURES: Dobutamine Stress Echo Report: Dobutamine stress echocardiogram. INDICATIONS: R06.02 Shortness of breath, R07.89 Other chest pain, and G89.4 Chronic pain syndrome. FINDINGS: Stress Data: Resting HR 79 bpm. Peak HR: 155 bpm. Predicted Maximal HR 155 bpm. Target HR: 132 bpm. Percent Max Predicted HR Achieved: 100 %. Baseline BP: 165/95. Peak BP: 165/98. Resting ECG: Normal sinus rhythm at 75 beats per minute, normal axis. Supervising Physician: The Supervising Physician is tiffanie kemp. Reason for Termination: Target HR achieved. Pharmacologic ECG: Normal exercise ECG. Resting Echo Findings: Normal global left ventricular size and systolic function with normal wall thickness and no focal wall motion abnormalities. Post Echo Findings: Hyperdynamic global contractility, no segmental wall motion abnormality, chamber size smaller. CONCLUSIONS: Adequate stress test in regards to heart rate with the patient achieving 93% of predicted maximum heart rate. No exercise induced chest pain. No definite ischemia on stress EKG. No Echocardiographic evidence of ischemia. Electronically Signed By: Dr Tiffanie Kemp 2024-05-20 13:39:31 SOLUTIONS ANALYST Procedure Note Tiffanie Kmep MD - 05/20/[address] [place] [address] Dobutamine Stress Echocardiogram Report Patient Name: JODIE VALENTIN : 1960 Study Date: 05/20/2024 11:49:58 AM Gender: F Tech: AA Ref Provider: REY ALEXANDER Height(Cm): BSA: Weight(Kg): Quality: Good Order Provider: REY ALEXANDER PROCEDURES: Dobutamine Stress Echo Report: Dobutamine stress echocardiogram. INDICATIONS: R06.02 Shortness of breath, R07.89 Other chest pain, and G89.4 Chronicpain syndrome. FINDINGS: Stress Data: Resting HR 79 bpm. Peak HR: 155 bpm. Predicted Maximal HR 155 bpm. TargetHR: 132 bpm. Percent Max Predicted HR Achieved: 100 %. Baseline BP: 165/95. Peak BP:165/98. Resting ECG: Normal sinus rhythm at 75 beats per minute, normal axis. Supervising Physician: The Supervising Physician is tiffanie kemp. Reason for Termination: Target HR achieved. Pharmacologic ECG: Normal exercise ECG. Resting Echo Findings: Normal global left ventricular size and systolic function with normal wallthickness and no focal wall motion abnormalities. Post Echo Findings: Hyperdynamic global contractility, no segmental wall motion abnormality,chamber size smaller. CONCLUSIONS: Adequate stress test in regards to heart rate with the patient [id number]% of predicted maximum heart rate. No exercise induced chest pain. No definite ischemia on stress EKG. No Echocardiographic evidence of ischemia. Electronically Signed By: Dr Tiffanie Kemp 2024-05-20 13:39:31 SOLUTIONS ANALYST Rey Alexander [facility] CV ECHO PROCEDURES Final R esult * (ABNORMAL) Creatinine, whole blood (05/20/2024 10:57 AM SOLUTIONS ANALYST) Creatinine, bld 1.62(H) 0.60 - 1.30 mg/dL Blood 05/20/2024 10:5 7 AM SOLUTIONS ANALYST 05/20/2024 11:00 AM SOLUTIONS ANALYST Rey Alexander [facility] LAB BLOOD ORDERABLES Final Result URIAH DE [facility] Department [place] [address] * MRI Lumbar Spine WO Contrast (05/12/2024 7:23 PM SOLUTIONS ANALYST) Anatomical Region Laterality Modality Spine N/A Magnetic Resonan ce 05/13/2024 10:3 6 AM SOLUTIONS ANALYST Impressions 05/13/2024 12:47 PM SOLUTIONS ANALYST 1. Multilevel degenerative changes as described above superimposed upon scoliosis including severe right foraminal stenosis at L3-L4 and severe left foraminal L4-L5 and L5-S1. Correlate with radiculopathy. 2. Effacement of the right lateral recess at L3-L4 and left lateral recess at L4-L5. Correlate with radiculopathy. Dictated by: Sacha Beckett M.D. The radiology attending physician has personally reviewed this study, and had reviewed and/or edited this written report and agrees with it. Electronically signed by: Taras Tang M.D. Narrative 05/13/2024 12:47 PM SOLUTIONS ANALYST EXAMINATION: Magnetic resonance imaging (MRI) of the lumbar spine without contrast HISTORY: 63 years-old Female with chronic low back pain. TECHNIQUE: Multiplanar multi-weighted MRI of the lumbar spine was performed without intravenous contrast using the standard protocol. COMPARISON: MRI lumbar spine 09/12/2022, 01/21/2019 FINDINGS: There is sigmoid curvature of the thoracolumbar spine, similar to prior studies. Modic type II endplate changes present at L3-L4. Modic type I endplate changes present at L1-L2. There are no compression fractures. The conus medullaris terminates at the level of T12-L1. The distal spinal cord signal intensity is normal. There is multilevel intervertebral disc height loss, most prominently at L2-L3 and L3-L4. There are no annular fissures identified. Cystic appearance of the bilateral SI joints posteriorly. The aorta is normal. T12-L1: Mild diffuse disc bulge There is mild bilateral facet arthropathy. There is mild left neuroforaminal stenosis. There is no spinal canal stenosis. L1-L2: Left subarticular disc bulge. There is moderate bilateral facet arthropathy. There is mild left neuroforaminal stenosis. There is no spinal canal stenosis. L2-L3: Right central and subarticular disc bulge present, which nearly completely effaces the right lateral recess. There is severe right and moderate left facet arthropathy. Tiny right synovial cyst. There is mild left neuroforaminal stenosis. There is moderate spinal canal stenosis. L3-L4: Diffuse disc osteophyte complex. There is moderate right and severe left facet arthropathy. There is severe right neuroforaminal stenosis. There is mild spinal canal stenosis. L4-L5: Diffuse disc bulge with mild ligamentum flavum hypertrophy. There is moderate right and severe left facet arthropathy. Left-sided facet arthropathy also effaces the left lateral recess. There is mild right and severe left neuroforaminal stenosis. There is moderate spinal canal stenosis. L5-S1: Diffuse disc bulge with ligamentum flavum hypertrophy. There is severe bilateral facet arthropathy. There is severe left neuroforaminal stenosis. There is mild spinal canal stenosis. Procedure Note Taras Tang MD PhD - 05/13/2024 EXAMINATION: Magnetic resonance imaging (MRI) of the lumbar spine without contrast HISTORY: 63 years-old Female with chronic low back pain. TECHNIQUE: Multiplanar multi-weighted MRI of the lumbar spine was performed without intravenous contrast using the standard protocol. COMPARISON: MRI lumbar spine 09/12/2022, 01/21/2019 FINDINGS: There is sigmoid curvature of the thoracolumbar spine, similar to prior studies. Modic type II endplate changes present at L3-L4. Modic type I endplate changes present at L1-L2. There are no compression fractures. The conus medullaris terminates at the level of T12-L1. The distal spinal cord signal intensity is normal. There is multilevel intervertebral disc height loss, most prominently at L2-L3 and L3-L4. There are no annular fissures identified. Cystic appearance of the bilateral SI joints posteriorly. The aorta is normal. T12-L1: Mild diffuse disc bulge There is mild bilateral facet arthropathy. There is mild left neuroforaminal stenosis. There is no spinal canal stenosis. L1-L2: Left subarticular disc bulge. There is moderate bilateral facet arthropathy. There is mild left neuroforaminal stenosis. There is no spinal canal stenosis. L2-L3: Right central and subarticular disc bulge present, which nearly completely effaces the right lateral recess. There is severe right and moderate left facet arthropathy. Tiny right synovial cyst. There is mild left neuroforaminal stenosis. There is moderate spinal canal stenosis. L3-L4: Diffuse disc osteophyte complex. There is moderate right and severe left facet arthropathy. There is severe right neuroforaminal stenosis. There is mild spinal canal stenosis. L4-L5: Diffuse disc bulge with mild ligamentum flavum hypertrophy. There is moderate right and severe left facet arthropathy. Left-sided facet arthropathy also effaces the left lateral recess. There is mild right and severe left neuroforaminal stenosis. There is moderate spinal canal stenosis. L5-S1: Diffuse disc bulge with ligamentum flavum hypertrophy. There is severe bilateral facet arthropathy. There is severe left neuroforaminal stenosis. There is mild spinal canal stenosis. IMPRESSION: 1. Multilevel degenerative changes as described above superimposed upon scoliosis including severe right foraminal stenosis at L3-L4 and severe left foraminal L4-L5 and L5-S1. Correlate with radiculopathy. 2. Effacement of the right lateral recess at L3-L4 and left lateral recess at L4-L5. Correlate with radiculopathy. Dictated by: Sacha Beckett M.D. The radiology attending physician has personally reviewed this study, and had reviewed and/or edited this written report and agrees with it. Electronically signed by: Taras Tang M.D. us Calixto Sweet MD IMG MRI PROCEDURES Final Result * Hepatitis C antibody Blood Blood, Venous (12/13/2023 12:54 PM CDT) Hep C Ab Nonreactive Nonreactive Comment: Interpretive Data Nonreactive: Antibodies to HCV not detected. Does NOT exclude the possibility of recent exposure to HCV. Equivocal: Equivocal for HCV antibodies. Supplemental molecular testing will be automatically performed to determine infection status in accordance with current CDC screening recommendations. Reactive: Positive for HCV antibodies. This may represent current or past HCV infection. Supplemental molecular testing will be automatically performed to determine current infection status in accordance with current CDC screening recommendations. Interpretive data was last revised on 2019. Blood (Blood, Venous) 12/13/2023 12:54 PM CDT 12/13/2023 9:10 PM CDT Cynthia KRUSE - 12/13/2023 10:04 PM CDT Fax results to Dr Julia Tidwell [phone] us Julia Tidwell NP LAB MICROBIOLOGY - GENERAL ORDERABLES Edited Result - Final [facility] [id number] Department [place] [address] * Dexa TBS Axial Skeleton Bone Density 1 or more sites (08/31/2022 9:19 AM SOLUTIONS ANALYST) Anatomical Region Laterality Modality Wrist, Body N/A Radiographic Genny ging Narrative 08/31/2022 9:43 AM SOLUTIONS ANALYST Patient Name: Jodie Valentin Date of : 1960 Date of scan: 08/31/2022 Bone mineral density was performed on a [employer] Discovery Densitometer. Based on machine cross-calibration and precision studies the least significant changes of this densitometer is 0.024 g/cm2 at the spine, 0.020 g/cm2 at the total proximal femur, and 0.014g/cm2 at the forearm. HISTORY: This is a 62 y.o. postmenopausal female with a history of rheumatoid arthritis, ulcerative colitis, and vitamin D deficiency. She reports that she has never smoked. She has never used smokeless tobacco. Currently on treatment with vitamin D, previously treated with anti-seizure medications, and current complaint of back pain, neck pain, and leg pain. INDICATIONS: Menopause status and vitamin D deficiency. FINDINGS: BONE MINERAL DENSITY OF THE LUMBAR SPINE Bone Mineral Density (BMD) of the lumbar spine was measured from L1-L4 and the average density was calculated to be 1.243 gm/cm2. This corresponds to a T-score (standard deviations from the mean of young adults) of 1.8. There is no previous study available for comparison. BONE MINERAL DENSITY OF THE PROXIMAL FEMUR Bone Mineral Density (BMD) of the left hip total was found to be 0.867 gm/cm2. This corresponds to a T-score standard deviations from the mean of young adults of -0.6. Femoral neck is 0.684 gm/cm2 with a T-score (standard deviations from the mean of young adults) of -1.5. There is no previous study available for comparison. BONE MINERAL DENSITY OF THE FOREARM Bone Mineral density (BMD) of the right proximal 1/3 of the radius measures 0.739 gm/cm2. This corresponds to a T-score (standard deviations from the mean of young adults) of 0.7. There is no previous study available for comparison. A forearm bone density study was performed in addition to the routine study because of severe degenerative disease and severe scoliosis. SUMMARY: Bone mineral density shows evidence of low bone mass at the proximal femur and moderately increased fracture risk (Osteopenia). The lumbar spine Trabecular Bone Score is 1.283 which suggests partially degraded bone microarchitecture compared to the general population. Final decisions regarding diagnostic or therapeutic recommendations should include BMD, TBS, additional clinical risk factors as well the clinical context of the patient. Please see attached TBS results for further details. ADDITIONAL COMMENTS: Postmenopausal Women and Men Over 50: Diagnostic criteria: Osteoporosis: BMD at or below -2.5 T-score; Osteopenia (low bone mass): BMD between -1.0 and -2.5 T-score. If the patient has a history of a fragility fracture, a fracture that occurred with trauma equivalent to a fall from a standing position or less, then the diagnosis is osteoporosis regardless of bone density. The history and data sections of the bone mineral density scan were prepared by Kathy Carr (R)(CBDT) who is accredited by the International Society of Clinical Densitometry. The overall patient assessment and scan interpretation were performed by Sacha Mohan M.D. who is certified by the International Society of Clinical Densitometry. [id number] Sacha Mohan MD IM DXA PROCEDURES Final Resul t * COLONOSCOPY (07/26/2022) Colonoscopy Abnormal Historical Provider HEALTH MAINTENANCE Final Result * PAP SMEAR WITH HPV (06/25/2016) Pap smear Normal Historical Provider HEALTH MAINTENANCE Final Result from Last 3 Months or Most Recently Relevant to Health Maintenance [facility] Address: [facility] [id number] [place] [phone] MEDICARE Care Teams [employer] M[employer] Relationship Specialty Start Date End Date Yaw Gibbs MD [address] [place], [place] [address] [place] [address] PCP - General Internal Medicine 03/23/20 Lisa Dickerson DO Surgeon Orthopedic Surgery 07/25/18 [place] [id number] [place] [address] Surgeon Orthopedic Surgery 07/25/18 [place] [address] [place] [address] Referring Physician Rheumatology 07/25/18 [place] [address] [place] [address] Surgeon Orthopedic Surgery 07/25/18 Trav Vaughn MD [address] [place] [address] Referring Physician Ophthalmology 07/25/18 Calixto Sweet MD [address] [place], [place] [address] [place] [address] Consulting Physician Orthopedic Surgery 08/04/20 Nuzhat Saunders MD [address] [place] [address] [address] [place] [address] Consulting Physician Dermatology 08/04/20 Karol Mills MD [address] [facility] [address] [place] [address] Consulting Physician Obstetrics and Gynecology 08/05/20 Socorro Gamboa DPT [address] [facility] [address] [place] [address] Physical Therapist Physical Therapy 10/05/22
--- OUTSIDE RECORDS SUMMARY | 2024-08-08 08:31 | XMS_ITS | Clinical Summary ---
Author Organization [facility] Address [address] [place] [address] Care Team Providers Care Garden Worker Name Role Phone Lisa Dickerson Unavailable [phone] Rony Sharp MD Unavailable Walter Ralph MD, Sheldon Tompkins Unavailable + Akash Lagos MD Unavailable [phone] Trav aVughn MD Unavailable [phone] Yaw Gibbs MD Primary Care Provider + Calixto Sweet MD Unavailable [phone] Nuzhat Saunders MD Unavailable Karol Mills MD Unavailable Socorro Gamboa DPT Unavailab le Allergies Active Allergy Reactions Criticality Noted Date [...] (0.1 mg/gram) vaginal creamIndication s:Vaginal atrophy Apply 06/28 applicator (1g) to the vagina 2-3 times [...] x1 before MRI if needed. 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 Exercise and balance While the [...] 06/13/2012 Assessment & Plan (04/30/2024 1:34 PM MUSIC DEPARTMENT CHAIR): BP elevated today She is angry and crying. Also has severe pain today Assessment & Plan (03/14/2024 3:36 PM CDT): Off clonidine per geological engineering teacher and BP has been stable at home Assessment & Plan (02/13/2024 12:49 PM CDT): BP labile at home Noting unwanted side effects from clonidine Discussed management with PCP, recommending follow up with Oxyacetylene Welder due to kidney disease Resolved Problems Problem [...] examination covered by Medicare 11/17/2014 12/26/19 24 Encounters Date Type Department Care Team Description 08/06/2024 1:30 PM MUSIC DEPARTMENT CHAIR Clinical Support [facility] Orthopaedic Surgery [address] [place] [address] Medical Office Building [address] [place] [address] Claudia Peace NP Stage 3b chronic kidney disease (HCC) [N18.32] (Primary Dx); Diverticulosis [K57.90]; Prediabetes [R73.03] 07/31/2024 1:50 PM MUSIC DEPARTMENT CHAIR Lab [facility] [address] [facility] [place] [address] Pulmonary emphysema, unspecified emphysema type (HCC) 07/31/2024 12:45 PM MUSIC DEPARTMENT CHAIR Office Visit [facility] [address] [facility] [address] [place] [address] Maryjo Moeller MD Pulmonary emphysema, unspecified emphysema type (HCC) (Primary Dx); Lung nodule; Marijuana use; Rheumatoid arthritis involving multiple sites with positive rheumatoid factor (CMS/HCC) (HCC) 07/30/2024 1:30 PM MUSIC DEPARTMENT CHAIR Clinical Support [facility] Orthopaedic Surgery [address] [place] [address] [address] [place] [address] Claudia Peace NP Class 2 severe obesity due to excess calories with serious comorbidity and body mass index (BMI) of 36.0 to 36.9 in adult (HCC) [E66.812, E66.01, Z68.36] (Primary Dx); BMI 36.0-36.9,adult 07/22/2024 2:20 PM MUSIC DEPARTMENT CHAIR Office Visit [facility] Obstetrics and Gynecology [facility] 7th Floor [address] [place] [address] Modesto Hardy MD Mixed stress and urge urinary incontinence (Primary Dx); Urge incontinence of urine 07/22/2024 8:00 AM MUSIC DEPARTMENT CHAIR Telemedicine [facility] Orthopaedic Surgery [address] [place] [address] 4 [address] [place] [address] Class 2 severe obesity due to excess calories with serious comorbidity and body mass index (BMI) of 36.0 to 36.9 in adult (HCC) [E66.812, E66.01, Z68.36] (Primary Dx); Stage 3b chronic kidney disease (HCC) [N18.32]; Prediabetes [R73.03]; Essential hypertension [I10]; Diverticulosis [K57.90] 07/21/2024 Telephone [facility] Obstetrics and Gynecology [address] [facility] 7th Floor [address] [place] [address] Catherine Delgado RN Botox Pyridium 07/21/2024 Telephone [facility] Orthopaedic Surgery [address] [facility] 12th [place] [address] [place] [address] Pranay Torres MD 07/17/2024 11:17 AM MUSIC DEPARTMENT CHAIR - 07/17/2024 11:59 PM MUSIC DEPARTMENT CHAIR Hospital Encounter [facility] [id number] [place] [address] Spinal stenosis, lumbar region, with neurogenic claudication; Essential hypertension; Mixed hyperlipidemia; Class 2 severe obesity due to excess calories with serious comorbidity and body mass index (BMI) of 35.0 to 35.9 in adult (HCC); Vitamin D deficiency; Other abnormal glucose Discharge Disposition: Discharge to home or self care 07/17/2024 11:15 AM MUSIC DEPARTMENT CHAIR Lab [facility] Outpatient Lab at [address] [address] Essential hypertension (Primary Dx) 07/17/2024 8:00 AM MUSIC DEPARTMENT CHAIR Office Visit [facility] Orthopaedic Surgery [address] [place] [address] Medical Office [facility] [address] [place] [address] Claudia Peace NP Essential hypertension (Primary Dx); Spinal stenosis, lumbar region, with neurogenic claudication; Mixed hyperlipidemia; Class 2 severe obesity due to excess calories with serious comorbidity and body mass index (BMI) of 35.0 to 35.9 in adult (HCC); Vitamin D deficiency; Other abnormal glucose 07/17/2024 Orders Only [facility] Orthopaedic Surgery [address] [place] [address] Medical Office Building [address] [place] [address] Claudia ePace NP Spinal stenosis, lumbar region, with neurogenic claudication (Primary Dx) 07/02/[address] [place] [address] Yaw Gibbs MD Med Refill 06/12/2024 8:09 AM MUSIC DEPARTMENT CHAIR - 06/12/2024 11:59 PM MUSIC DEPARTMENT CHAIR Hospital Encounter [facility] [address] [place] [address] Calixto Sweet MD Low back pain with radiation (Primary Dx); Spinal stenosis, lumbar region, with neurogenic claudication; Lumbar spondylosis; Lumbar radicular pain Discharge Disposition: Discharge to home or self care 06/11/2024 Telephone [facility] Cardiology [address] [facility] 8th [place] [address] [place] [address] Leandra Wiley 06/11/[address] [place] [address] Yaw Gibbs MD Urgent referral 06/10/2024 11:30 AM MUSIC DEPARTMENT CHAIR Office Visit [facility] Surgery [address] [facility] [address] [place] [address] Reese Myers MD Multiple lung nodules (Primary Dx); Abnormal CT of the chest; Pulmonary nodules; Class 2 severe obesity due to excess calories with serious comorbidity and body mass index (BMI) of 35.0 to 35.9 in adult (HCC) 06/10/2024 Orders Only [facility] Surgery [address] [facility] Floor 5 [place] [address] Kathy Lugo, ANDERSON Multiple lung nodules (Primary Dx) 06/06/2024 Orders Only [address] [place] [address] Rey Alexander DNP Abnormal chest CT (Primary Dx); Pulmonary emphysema, unspecified emphysema type (HCC) 06/04/2024 8:43 AM MUSIC DEPARTMENT CHAIR - 06/04/2024 11:59 PM MUSIC DEPARTMENT CHAIR Hospital Encounter [facility] Pulmonary [address] [facility] [address] [place] [address] Shortness of breath Discharge Disposition: Discharge to home or self care 06/02/2024 Telephone [facility] Obstetrics and Gynecology [address] [facility] 7th Floor [address] [place] [address] Katheryn Greco, RN UACX result 05/30/2024 10:45 AM MUSIC DEPARTMENT CHAIR Lab [facility] Outpatient Lab at [address] [address] 05/30/2024 10:33 AM MUSIC DEPARTMENT CHAIR - 05/30/2024 11:59 PM MUSIC DEPARTMENT CHAIR Hospital Encounter [address] [address] Urinary frequency Discharge Disposition: Discharge to home or self care 05/30/2024 Orders Only [address] [place] [address] Rey Alexander, MICHELLE Abnormal CT of the chest (Primary Dx); Aneurysm of ascending aorta without rupture (HCC) 05/28/2024 Orders Only [address] [address] Rey Alexander, MICHELLE Abnormal CT of the chest (Primary Dx); Shortness of breath; Pulmonary nodules; Aneurysm of ascending aorta without rupture (HCC) 05/27/2024 8:00 AM MUSIC DEPARTMENT CHAIR - 05/27/2024 11:59 PM MUSIC DEPARTMENT CHAIR Hospital Encounter [address] [place] [address] Screening mammogram, encounter for Discharge Disposition: Discharge to home or self care 05/27/2024 Telephone [facility] Obstetrics and Gynecology [address] [facility] 7th Floor [address] [place] [address] Radha Noriega Scheduling Appointments 05/20/2024 10:55 AM MUSIC DEPARTMENT CHAIR Lab [address] [address] 05/20/2024 10:49 AM MUSIC DEPARTMENT CHAIR - 05/20/2024 11:59 PM MUSIC DEPARTMENT CHAIR Hospital Encounter [facility] [address] [place] [address] Shortness of breath; Atypical chest pain Discharge Disposition: Discharge to home or self care 05/20/2024 10:48 AM MUSIC DEPARTMENT CHAIR - 05/20/2024 11:59 PM MUSIC DEPARTMENT CHAIR Hospital Encounter [facility] 1 [place] [address] Shortness of breath; Atypical chest pain; Chronic pain syndrome Discharge Disposition: Discharge to home or self care 05/19/2024 Orders Only [address] [address] Yaw Gibbs MD Chronic pain syndrome; Chronic midline low back pain without sciatica 05/19/2024 Telephone [facility] [address] [place] [address] Nalepa, Cheri D. 05/14/2024 Orders Only [address] [address] Yaw Gibbs MD 05/14/[address] [address] Yaw Gibbs MD cardio test issue 05/12/2024 5:56 PM MUSIC DEPARTMENT CHAIR - 05/12/2024 11:59 PM MUSIC DEPARTMENT CHAIR Hospital Encounter [facility] [address] [place] [address] Spinal stenosis, lumbar region, with neurogenic claudication; Low back pain with radiation; Lumbar spondylosis; Spondylolisthesis of lumbar region Discharge Disposition: Discharge to home or self care 05/08/2024 Orders Only [address] [address] Yaw Gibbs MD from Last 3 Months Immunizations Name Administration Dates Next Due COVID-19 [...] Preservative Free, Intradermal 03/02/2016 Influenza, Unspecified 03/25/2019,03/25/2018 HexAirbot (J&J) SARS-CoV-2 Vaccination 08/23/2020 Moderna SARS-CoV-2 Monovalen t Vaccination (12+ YRS) 06/25/2021 Pneumococcal Polysaccharide PPV23 08/05/2020 RSV Vaccine, Pref, Recombina nt, Subunit, Adjuvanted, PF, IM (Arexvy) 04/25/2023 Tdap 09/27/2021,06/13/2012 Typhoid Live 07/25/2018,09/23/2016 ZOSTER LIVE 05/05/2015 ZOSTER Recombinant 02/23/2023 Surgical History Surgery Date Site/Laterality Comments SECTION x 2 KNEE ARTHROSCOPY Left x 2, prior to replacement SHOULDER SURGERY 02/23/2015 - 03/24/[address] Lagos LEG SURGERY 04/29/[address] Rony Sharp; left hamstring repair (tear) IR INJECTION ARTHROGRAM SI JOINT BILATERAL WITH GUIDANCE 02/14/2018 Bilateral IR INJECTION ARTHROGRAM SI JOINT BILATERAL WITH GUIDANCE 05/15/2018 Bilateral APPENDECTOMY CHOLECYSTECTOMY IR INJECTION ARTHROGRAM SI JOINT BILATERAL WITH GUIDANCE 08/22/2018 Bilateral IR INJECTION ARTHROGRAM SI JOINT LEFT INCLUDES IMAGING GUIDANCE 11/25/2018 Left FL UPPER GI AIR CONTRAST W KUB 02/10/2019 Left IR INJECTION ARTHROGRAM SI JOINT LEFT INCLUDES IMAGING GUIDANCE 05/05/2019 Left FL UPPER GI AIR CONTRAST W KUB 05/28/2019 Left REPLACEMENT TOTAL KNEE Left IR INJECTION ARTHROGRAM SI JOINT LEFT INCLUDES IMAGING GUIDANCE 08/21/2019 Left FL UPPER GI AIR CONTRAST W KUB 11/28/2019 Left IR INJECTION ARTHROGRAM SI JOINT LEFT INCLUDES IMAGING GUIDANCE 12/23/2019 Left FL FLUORO GUIDED LUMBAR PUNCTURE 01/20/2020 Right IR INJECTION ARTHROGRAM SI JOINT LEFT INCLUDES IMAGING GUIDANCE 04/06/2020 Left FL UPPER GI AIR CONTRAST W KUB 05/25/2020 Bilateral IR INJECTION ARTHROGRAM SI JOINT LEFT INCLUDES IMAGING GUIDANCE 07/27/2020 Left FL UPPER GI AIR CONTRAST W KUB 10/01/2020 Left IR INJECTION ARTHROGRAM SI JOINT LEFT INCLUDES IMAGING GUIDANCE 11/23/2020 Left FL FLUORO GUIDED LUMBAR PUNCTURE 01/21/2021 Right FL UPPER GI AIR CONTRAST W KUB 03/15/2021 Left THUMB SURGERY IR INJECTION ARTHROGRAM SI JOINT LEFT INCLUDES IMAGING GUIDANCE 10/18/2021 Left IR INJECTION ARTHROGRAM SI JOINT LEFT INCLUDES IMAGING GUIDANCE 03/08/2022 Left IR INJECTION ARTHROGRAM SI JOINT BILATERAL WITH GUIDANCE 10/12/2022 Bilateral FL UPPER GI AIR CONTRAST W KUB 11/09/2022 Left FL UPPER GI AIR CONTRAST W KUB 03/15/2023 Left IR INJECTION ARTHROGRAM SI JOINT LEFT INCLUDES IMAGING GUIDANCE 07/05/2023 Left IR INJECTION ARTHROGRAM SI JOINT LEFT INCLUDES IMAGING GUIDANCE 10/11/2023 Left IR INJECTION ARTHROGRAM SI JOINT RIGHT INCLUDES IMAGING GUIDANCE 02/07/2024 Right FL UPPER GI AIR CONTRAST W KUB 03/20/2024 Left FL UPPER GI AIR CONTRAST W KUB 06/12/2024 Left SECTION JOINT REPLACEMENT 2004 ABDOMINAL SURGERY 1967 Medical History Medical History Date Comments 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 Green. Treated by Dr. Green, triple therapy, symptoms resolved History of diverticulitis of colon Gout Rheumatoid arthritis (HCC) Ischemic colitis (HCC) Depression Hypertension Osteopenia Chronic kidney disease 2015 Autoimmune disease (CMS/HCC) (HCC) 02/2021 GI (gastrointestinal bleed) 2009 Family History Medical History Relation Name Comments Arthritis Brother Eliel Long Coronary artery disease Father Dom long Early Father Dom long Heart attack Father Dom long Heart disease Father Dom long Hypertension Father Dom long Skin cancer Father Dom long Depression Maternal Grandmother Zulema Efren Mental illness Maternal Grandmother Zulema Efren Arthritis Mother Felicitas Fernandez Breast cancer Mother Felicitas Fernandez Cancer Mother Felicitas Fernandez Osteoporosis Mother Felicitas Fernandez Rheum arthritis Mother Felicitas Fernandez Skin cancer Mother Felicitas Fernandez Memory loss Paternal Grandmother Amanda Fernandez Arthritis Sister 1 Daja Degroot Diabetes Sister 1 Daja Degroot Rheum arthritis Sister 2 Arthritis Sister 3 Mercedez Bartlett Alcohol abuse Son Taqueria Valentin Depression Son Taqueria Valentin Colon cancer Neg Hx Prostate cancer Neg Hx Relation Name Status Comments Brother Eliel Fernandez Father Dom fernandez Maternal Grandmother Zulema Efren Mother Felicitas Fernandez Paternal Grandmother Amanda Fernandez Sister 1 Daja Degroot Sister 2 Sister 3 Mercedez Bartlett Son Taqueria Valentin Social History Tobacco Use Types Packs/Day Years [...] on file Legal Sex Female 1:02 AM MUSIC DEPARTMENT CHAIR Gender Identity Female 10/10/2023 1:18 PM CDT Sexual Orientation Straight 03/13/2024 9: 10 AM CDT 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 Not on file Not on file Not on file Obstetrics History Para Term AB IAB SAB Ectopic Multiple Livin g Live Births 3 3 Date Outcome GA Total Labor Labor/2nd/3rd Weight Sex Type Anes PTL Tiffanie A1 A5 Name Clin Para Para Para Last Filed Vital Signs Vital Sign Reading Time Taken Comments Blood Pressure 147/77 07/31/2024 12:36 PM MUSIC DEPARTMENT CHAIR Pulse 90 07/31/2024 12:36 PM MUSIC DEPARTMENT CHAIR Temperature 36.4 C (97.6 F) 12/04/2023 9:45 AM CDT Respiratory Rate 16 06/12/2024 9:02 AM MUSIC DEPARTMENT CHAIR Oxygen Saturation 96% 07/31/2024 12:36 PM MUSIC DEPARTMENT CHAIR Inhaled Oxygen Concentration - - Weight 93.3 kg (205 lb 9.6 oz) 07/31/2024 12:36 PM MUSIC DEPARTMENT CHAIR Height 160 cm (5' 3 ) 07/31/2024 12:36 PM MUSIC DEPARTMENT CHAIR Body Mass Index 36.42 07/31/2024 12:36 PM MUSIC DEPARTMENT CHAIR Plan of Treatment Health Maintenance Due Date Last Done Comments Pneumococcal vaccine 65+ (2 of 2 - PCV) 08/05/2021 08/05/2020 Osteoporosis Screening-Bone Density Scan 08/31/2024 08/31/2022, 08/23/2022 Cervical Cancer Screening 09/23/2024 09/24/2023, 06/2016 Depression Screening 10/17/2024 10/18/2023, 09/27/2022, 09/27/2021, Additional history exists Well Visit 65+ 10/17/2024 10/18/2023, 09/24, 09/27/2022, Additional history exists Fall Risk Assessment 11/12/2024 11/13/2023, 10/18/19 24 Breast Cancer Screening-Mammogram 05/27/2025 05/27/2024, 05/16/2023, 11/01/2021, Additional history exists Colon Cancer Screening-Colonoscopy 07/26/2025 07/26/2022, 07/12/2021, 09/06/2012 DTaP/Tdap/Td Vaccine (3 - Td or Tdap) 09/28/2031 09/27/2021, 06/13/2012 Colon Cancer Screening-CT Colonography Discontinued 07/26/2022, 07/12/2021, 09/06/2012 Colon Cancer Screening-DNA Stool Discontinued 07/26/2022, 07/12/2021, 09/06/2012 Colon Cancer Screening-FIT Discontinued 07/26, 07/12/2021, 09/06/2012 Colon Cancer Screening-Sigmoidoscopy Discontinued 07/26/2022, 07/12/2021, 09/06/2012 Zoster Vaccine Discontinued 02/23/2023, 05/05/2015 Hepatitis C Screening Completed 12/13/2023 , 02/07/2021, 07/25/2018 Covid-19 Vaccine Completed 02/29/2024, 06/2022, 06/25/2021, Additional history exists Influenza Vaccine Completed 02/29/2024, , 04/04/2022, Additional history exists Hepatitis B Screening Discontinued Goals Goal Patient Goal Type Associated Problems [...] as needed Medical Devices Implanted Type Area Health Spa Manager Device Identifier Shelf Expiration Date Model / Serial / Lot Arthroplasty Knee Anchors Pelvis Procedures Procedure Name Priority Date/Time Associated Diagnosis Comments [id number] PHENOTYPE Routine 07/31/2024 1:51 PM MUSIC DEPARTMENT CHAIR Pulmonary emphysema, unspecified emphysema type (HCC) POCT URINALYSIS DIPSTICK Routine 07/22/2024 2:37 PM MUSIC DEPARTMENT CHAIR Mixed stress and urge urinary incontinence VITAMIN D 25 HYDROXY Routine 07/17/2024 11:17 AM MUSIC DEPARTMENT CHAIR Spinal stenosis, lumbar region, with neurogenic claudication Essential hypertension Mixed hyperlipidemia Class 2 severe obesity due to excess calories with serious comorbidity and body mass index (BMI) of 35.0 to 35.9 in adult (HCC) Vitamin D deficiency HEMOGLOBIN A1C Routine 07/17/2024 11:17 AM MUSIC DEPARTMENT CHAIR Spinal stenosis, lumbar region, with neurogenic claudication Essential hypertension Mixed hyperlipidemia Class 2 severe obesity due to excess calories with serious comorbidity and body mass index (BMI) of 35.0 to 35.9 in adult (HCC) Vitamin D deficiency Other abnormal glucose LIPID PANEL Routine 07/17/2024 11:17 AM MUSIC DEPARTMENT CHAIR Spinal stenosis, lumbar region, with neurogenic claudication Essential hypertension Mixed hyperlipidemia Class 2 severe obesity due to excess calories with serious comorbidity and body mass index (BMI) of 35.0 to 35.9 in adult ([facility]) Vitamin D deficiency CRP, HIGH SENSITIVITY Routine 07/17/2024 11:17 AM MUSIC DEPARTMENT CHAIR Spinal stenosis, lumbar region, with neurogenic claudication Essential hypertension Mixed hyperlipidemia Class 2 severe obesity due to excess calories with serious comorbidity and body mass index (BMI) of 35.0 to 35.9 in adult ([facility]) Vitamin D deficiency ERYTHROCYTE SEDIMENTATION RATE Routine 07/17/2024 11:17 AM MUSIC DEPARTMENT CHAIR Spinal stenosis, lumbar region, with neurogenic claudication Essential hypertension Mixed hyperlipidemia Class 2 severe obesity due to excess calories with serious comorbidity and body mass index (BMI) of 35.0 to 35.9 in adult ([facility]) Vitamin D deficiency TRANSFORAMINAL EPIDURAL INJECTION LUMBAR SACRAL 1 LEVEL LEFT Schedule Routine, Read Routine (OP Routine) 06/12/2024 8:55 AM MUSIC DEPARTMENT CHAIR Spinal stenosis, lumbar region, with neurogenic claudication Lumbar spondylosis Lumbar radicular pain PULMONARY FUNCTION TEST (PFT) Routine 06/04/2024 9:03 AM MUSIC DEPARTMENT CHAIR Shortness of breath URINALYSIS, MICROSCOPIC ONLY Routine 05/30/2024 10:33 AM MUSIC DEPARTMENT CHAIR Urinary frequency URINALYSIS AND REFLEX TO MICROSCOPIC Routine 05/30/2024 10:33 AM MUSIC DEPARTMENT CHAIR Urinary frequency URINE CULTURE Routine 05/30/2024 10:33 AM MUSIC DEPARTMENT CHAIR Urinary frequency SCREENING MAMMOGRAM BILATERAL W KENROY Schedule Routine, Read Routine (OP Routine) 05/27/2024 8:19 AM MUSIC DEPARTMENT CHAIR Screening mammogram, encounter for CT CHEST W CONTRAST Schedule Routine, Read Routine (OP Routine) 05/20/2024 1:01 PM MUSIC DEPARTMENT CHAIR Shortness of breath Atypical chest pain STRESS ECHO PHARMACOLOGIC WO DOPPLER/CF WO CONTRAST Routine 05/20/2024 12:29 PM MUSIC DEPARTMENT CHAIR Shortness of breath Atypical chest pain Chronic pain syndrome CREATININE, WHOLE BLOOD STAT 05/20/2024 10:57 AM MUSIC DEPARTMENT CHAIR MRI LUMBAR SPINE WO CONTRAST Schedule Routine, Read Routine (OP Routine) 05/12/2024 7:23 PM MUSIC DEPARTMENT CHAIR Spinal stenosis, lumbar region, with neurogenic claudication Low back pain with radiation Lumbar spondylosis Spondylolisthesis of lumbar region HEPATITIS C ANTIBODY Routine 12/13/2023 12:54 PM CDT Rheumatoid arthritis of multiple sites without rheumatoid factor (CMS/HCC) (HCC) Encounter for long-term (current) use of other medications DEXA TBS AXIAL SKELETON BONE DENSITY 1 OR MORE SITES Schedule Routine, Read Routine (OP Routine) 08/31/2022 9:19 AM MUSIC DEPARTMENT CHAIR Age-related osteoporosis without current pathological fracture COLONOSCOPY Routine 07/26/2022 PAP SMEAR WITH HPV Routine 06/25/2016 from Last 3 Months or Most Recently Relevant to Health Maintenance Results * [id number]-[id number] phenotype (07/31/2024 1:51 PM MUSIC DEPARTMENT CHAIR) alpha-1 antitrypsin 169 100 - 190 mg/dL [facility] ref Lab Comment: ADDITIONAL INFORMATION Method: Nephelometry Test Performed by: [facility] [place] [address] Classifications Officer Cc/Cm: Reyna Gillis Ph.D.; CLIA# [id number] alpha-1 antitrypsin phenotype MM kim [facility] Comment: A single M isoform is detected. In the context of a normal bdahj-1-srpwjvlbftg concentration, this is consistent with an MM phenotype. ADDITIONAL INFORMATION Method: Isoelectric Focusing, This assay identifies the phenotype of the circulating yxocb-8-iinearfywbw (A1A) protein. If the patient is on replacement therapy or has been recently transfused, the phenotype will detect patient and replacement or transfused plasma A1A protein. This test also cannot detect a null allele which could be responsible for an A1A deficiency. Blood 07/31/2024 1:51 PM MUSIC DEPARTMENT CHAIR 07/31/2024 4:15 PM MUSIC DEPARTMENT CHAIR Maryjo Moeller MD LAB BLOOD ORDERABLES Final Result [facility] [address] Department [place] [address] [facility] ref Lab * POCT urinalysis dipstick (07/22/2024 2:37 PM MUSIC DEPARTMENT CHAIR) Color, Urine, POC [place] Clarity, ur, POC Clear Clear Glucose, ur, POC Negative Negative MG/DL Bilirubin, ur, POC Negative Negative, Small, Moderate, Large Ketones, ur, POC Negative Negative Specific [place], POC 1.010 1.003 - 1.030 Blood, ur, POC Negative Negative pH, ur, POC 5.0 5.0 - 8.0 Protein, ur, POC Negative Negative Urobilinogen, urine, POC 0.2 0.2 - 1.0 mg/dL Nitrite, ur, POC Negative Negative Leukocytes, ur, POC Negative Negative Lot Number [id number] Urine 07/22/2024 2:37 PM MUSIC DEPARTMENT CHAIR Modesto Hardy MD POINT OF CARE TEST ORDERABL ES Final Result * Vitamin D 25 hydroxy (07/17/2024 11:17 AM MUSIC DEPARTMENT CHAIR) Vitamin D 25-OH 68 30 - 80 ng/mL Blood 07/17/2024 11:1 7 AM MUSIC DEPARTMENT CHAIR 07/17/2024 8:12 PM MUSIC DEPARTMENT CHAIR Claudia Peace NP LAB BLOOD ORDERABLES Lulu l Result Performing Organization Address City/[facility] Co de Phone Number URIAH CARSON [address] Department [employer] [place], [place] [id number] * (ABNORMAL) Erythrocyte sedimentation rate (07/17/2024 11:17 AM MUSIC DEPARTMENT CHAIR) Erythrocyte sedimentation rate 31(H) 1 - 30 mm/hr Blood 07/17/2024 11:1 7 AM MUSIC DEPARTMENT CHAIR 07/17/2024 8:12 PM MUSIC DEPARTMENT CHAIR Claudia Peace NP LAB BLOOD ORDERABLES Lulu l Result Performing Organization Address [facility] de Phone Number URIAH CARSON [address] [facility] [employer] [place], [place] [id number] * CRP (cardiac risk) (07/17/2024 11:17 AM MUSIC DEPARTMENT CHAIR) hsCRP 14.54 mg/L Comment: Interpretive data Adult [...] last revised on 2018. Testing performed by: [facility], [address] [place]., [address] Blood 07/17/2024 11:1 7 AM MUSIC DEPARTMENT CHAIR 07/18/2024 10:00 AM MUSIC DEPARTMENT CHAIR Claudia Peace NP LAB BLOOD ORDERABLES Lulu l Result Performing Organization Address City/[facility] Co de Phone Number URIAH CARSON [address] Department of [employer] [place], [place] [id number] * (ABNORMAL) Hemoglobin A1c (07/17/2024 11:17 AM MUSIC DEPARTMENT CHAIR) Hgb A1C 5.8(H) 4.0 - 5.6 % Estimated Average Glucose 120 mg/dL URIAH CARSON Comment: The ADA recommends reporting an estimated Average Glucose (eAG) with all Hemoglobin A1c results using the equation derived from a study of 507 normal and diabetic adults. Minority populations were underrepresented and children were not included. (Diabetes Care 31:7235-3823, 2008). The eAG is not equivalent to a fasting glucose. Blood 07/17/2024 11:1 7 AM MUSIC DEPARTMENT CHAIR 07/17/2024 8:12 PM MUSIC DEPARTMENT CHAIR us Claudia Peace NP LAB BLOOD ORDERABLES Lulu ceballos Result URIAH CARSON [address] Department [place] [address] * (ABNORMAL) Lipid panel (07/17/2024 11:17 AM MUSIC DEPARTMENT CHAIR) Cholesterol 186 30 - 199 mg/dL Comment: [...] on 2018. HDL 43 >=40 mg/dL URIAH CARSON Comment: Interpretive Data Ages [...] 2018. LDL, calculated 97 <=129 mg/dL URIAH CARSON Comment: Interpretive Data Ages [...] NCEP Expert Panel. Circulation 2004;110:227 3. Jason Blue et al. DOMENICA Cardiol. 2020 October 23;5(5):540-548. doi: 10.1001/jamacardio.2020.0013 Current Interpretive Data was [...] revised on 2018. Chol/HDL ratio 4 URIAH YAMILETH Blood 07/17/2024 11:1 7 AM MUSIC DEPARTMENT CHAIR 07/17/2024 8:12 PM MUSIC DEPARTMENT CHAIR us Claudia Peace SENIOR QUALITY CONTROL INSPECTOR LAB BLOOD ORDERABLES Lulu l Result URIAH [address] Department [place] [address] * IR Transforaminal Epidural Injection Lumbar Sacral 1 Level Left (06/12/2024 8:55 AM MUSIC DEPARTMENT CHAIR) Narrative RAD_PACS_[facility] - 06/12/2024 8:55 AM MUSIC DEPARTMENT CHAIR The images from this study are not interpreted by Radiology. Please refer to the physician's procedure / OR operative note. us Calixto Sweet MD IMG IR PROCEDURES Final Result Performing Organization Address City/[facility] Co de Phone Number [facility]_PACS[facility] * Pulmonary Function Test - (06/04/2024 9:03 AM MUSIC DEPARTMENT CHAIR) FVC PRE 3.17 L [facility] FVC %PRE PRED 110 % [facility] FEV1 PRE 2.53 L [facility] FEV1 %PRE PRED 112 % [facility] FEV1/FVC PRE 79.9 % [facility] FRC PL PRE 3.[address] [facility] FRC PL %PRE PRED 116 % [facility] RV PRE 2.74 L [facility] RV %PRE PRED 133 % [facility] TLC PRE 5.99 L [facility] TLC %PRE PRED 122 % [facility] DLCO PRE 21.8 ml/min/mmH g [facility] DLCO %PRE PRED 115 % [facility] Anatomical Region Laterality Modality PFT 06/04/2024 8:49 AM MUSIC DEPARTMENT CHAIR Narrative 06/04/2024 1:58 PM MUSIC DEPARTMENT CHAIR PFT performed at:->[facility] Adult PFT Lab- [id number]8D Procedure:->Standard Standard:->Spirometry, Spirometry [...] and %HbO2 is age dependent. However, the [facility] Pulmonary Function Laboratory defines hypoxemia as a PaO2 <56 mm Hg or a %HbO2 <89%. us [facility] PFT ORDERABLES Final Resu lt * (ABNORMAL) Urinalysis reflex to microscopic (05/30/2024 10:33 AM MUSIC DEPARTMENT CHAIR) Color, ur Straw Yellow Clarity, ur Clear [...] tendency for uric acid stone formation. Source: [employer] Current Interpretive Data was last revised on 2017 Protein, ur ql Negative Negative [facility] Glucose, ur ql Negative Negative [facility] Ketones, ur Negative Negative [facility] Bilirubin, ur Negative Negative [facility] Blood, ur Trace(A) Negative [facility] Urobilinogen, ur <2.0 <2.0 mg/dL [facility] Nitrite, ur Negative Negative [facility] Leukocyte esterase, ur Negative Negative [facility] UA reflex comment Reflex to microscopic UA will be performed. [facility] Urine, clean voided 05/30/2024 10:33 AM MUSIC DEPARTMENT CHAIR 05/30/2024 3:53 PM MUSIC DEPARTMENT CHAIR Modesto Hardy MD LAB URINE ORDERABLES Final Result Performing Organization Address [facility] de Phone Number URIAH CARSON [address] Department [place] [address] * (ABNORMAL) Urinalysis, microscopic only (05/30/2024 10:33 AM MUSIC DEPARTMENT CHAIR) WBC, ur 0-5 0 - 5 /HPF RBC, ur 0-2 0 - 2 /HPF [facility] Epithelial cells, squamous, ur 1-5 0 - 5 /HPF [facility] Mucous, ur Present(A) [facility] Urine, clean voided 05/30/2024 10:33 AM MUSIC DEPARTMENT CHAIR 05/30/2024 3:53 PM MUSIC DEPARTMENT CHAIR Modesto Hardy MD LAB URINE ORDERABLES Final Result Performing Organization Address [facility] de Phone Number URIAH CARSON [address] [place] [address] * Urine culture Urine, clean voided (05/30/2024 10:33 AM MUSIC DEPARTMENT CHAIR) Report Final Report: Less than 100,000 colonies/mL (clinically insignificant growth based on current clinical standards) Comment:Testing performed by : [facility], [address] [place] [address] Organism (CLINICALLY INSIGNIFICANT GROWTH [facility] Urine, clean voided 05/30/2024 10:33 AM MUSIC DEPARTMENT CHAIR 05/30/2024 6:24 PM MUSIC DEPARTMENT CHAIR Narrative [facility] - 05/31/2024 8:14 PM MUSIC DEPARTMENT CHAIR Testing performed by [facility] Microbiology Laboratory ([phone]) Modesto Hardy MD LAB MICROBIOLOGY - GENERAL ORDERABLES Final Result URIAH CARSON [address] Department [place] [address] * Screening Mammogram Bilateral W [place] (05/27/2024 8:19 AM MUSIC DEPARTMENT CHAIR) Anatomical Region Laterality Modality Breast Bilateral Mammography Narrative 05/28/2024 12:19 PM MUSIC DEPARTMENT CHAIR Mammogram Technique: Bilateral Digital Breast Tomosynthesis, Bilateral C-view 2D Screening mammogram. Views obtained: bilateral craniocaudal and bilateral mediolateral oblique. Computer Aided Detection was performed. Mammogram Findings: The present examination has been compared to prior imaging studies performed at [facility] on 07/25/2018, 11/01/2021 and 05/16/2023. There are [...] compared to prior imaging studies performed at [facility] on 07/25/2018, 11/01/2021 and 05/16/2023. There are scattered areas of fibroglandular density. There is no suspicious abnormality in either breast. Impression: There is no mammographic evidence of malignancy. Annual screening mammography is recommended. OVERALL FINAL ASSESSMENT: BI-RADS CATEGORY 1: Negative. us Self Screening Mammogram IMG MAMMO PROCEDURES Fi nal Result * CT Chest W Contrast (05/20/2024 1:01 PM MUSIC DEPARTMENT CHAIR) Anatomical Region Laterality Modality Body N/A Computed Tomogra phy 05/24/2024 5:01 PM MUSIC DEPARTMENT CHAIR Narrative 05/24/2024 5:15 PM MUSIC DEPARTMENT CHAIR EXAM DESCRIPTION: CT CHEST W CONTRAST REASON [...] Angelo Reese M.D. BB: HIGINIO Report ID: [id number] Reading Location: [id number] Procedure Note Angelo Reese MD PhD - [...] Angelo Reese M.D. BB: HIGINIO Report ID: [id number] Reading Location: [place] [address] [facility] IM CT PROCEDURES Final Re sult * STRESS ECHO PHARMACOLOGIC WO DOPPLER/CF WO CONTRAST (05/20/2024 12:29 PM MUSIC DEPARTMENT CHAIR) Anatomical Region Laterality Modality Ultrasound, Nucl ear Medicine 05/20/2024 11:4 9 AM MUSIC DEPARTMENT CHAIR Narrative 05/20/2024 1:40 PM MUSIC DEPARTMENT CHAIR [address] [place] [address] Dobutamine Stress Echocardiogram Report Patient Name: JODIE [...] Signed By: Dr Tiffanie Kemp 2024-05-20 13:39:31 MUSIC DEPARTMENT CHAIR Procedure Note Tiffanie Kemp MD - 05/20/[address] [place] [address] Dobutamine Stress Echocardiogram Report Patient Name: JODIE [...] regards to heart rate with the patient [id number]% of predicted maximum heart rate. No exercise induced chest pain. No definite ischemia on stress EKG. No Echocardiographic evidence of ischemia. Electronically Signed By: Dr Tiffanie Kemp 2024-05-20 13:39:31 MUSIC DEPARTMENT CHAIR us [facility] CV ECHO PROCEDURES Final R esult * (ABNORMAL) Creatinine, whole blood (05/20/2024 10:57 AM MUSIC DEPARTMENT CHAIR) Creatinine, bld 1.62(H) 0.60 - 1.30 mg/dL Blood 05/20/2024 10:5 7 AM MUSIC DEPARTMENT CHAIR 05/20/2024 11:00 AM MUSIC DEPARTMENT CHAIR us [facility] LAB BLOOD ORDERABLES Final Result Performing Organization Address City/State/[facility] Co de Phone Number [facility] Department [place] [address] * MRI Lumbar Spine WO Contrast (05/12/2024 7:23 PM MUSIC DEPARTMENT CHAIR) Anatomical Region Laterality Modality Spine N/A Magnetic Resonan ce 05/13/2024 10:3 6 AM MUSIC DEPARTMENT CHAIR Impressions 05/13/2024 12:47 PM MUSIC DEPARTMENT CHAIR 1. Multilevel degenerative changes as described above [...] Taras Tang M.D. Narrative 05/13/2024 12:47 PM MUSIC DEPARTMENT CHAIR EXAMINATION: Magnetic resonance imaging (MRI) of the [...] it. Electronically signed by: Taras Tang M.D. Calixto Sweet MD IMG MRI PROCEDURES Final [...] 12:54 PM CDT 12/13/2023 9:10 PM CDT Narrative URIAH CARSON - 12/13/2023 10:04 PM CDT Fax results to Dr Julia Tidwell [phone] Julia Tidwell NP LAB MICROBIOLOGY - GENERAL ORDERABLES Edited Result - Final URIAH CARSON [address] Department [place] [address] * Dexa TBS Axial Skeleton Bone Density 1 or more sites (08/31/2022 9:19 AM MUSIC DEPARTMENT CHAIR) Anatomical Region Laterality Modality Wrist, Body N/A Radiographic Genny ging Narrative 08/31/2022 9:43 AM MUSIC DEPARTMENT CHAIR Patient Name: Jodie Valentin Date of : 1960 Date of scan: 08/31/2022 Bone mineral density was performed on a [employer] Discovery Densitometer. Based on machine cross-calibration and [...] by the International Society of Clinical Densitometry. [id number] Sacha Mohan MD IMG DXA PROCEDURES Final Resul t * COLONOSCOPY (07/26/2022) Colonoscopy Abnormal Historical Provider HEALTH MAINTENANCE Final Result * PAP SMEAR WITH HPV (06/25/2016) Pap smear Normal Historical Provider HEALTH MAINTENANCE Final Result from Last 3 Months or Most Recently Relevant to Health Maintenance Insurance [employer] [facility] AETNA MEDICARE [id number] [place], [place] [address] MEDICARE Care Teams Garden Worker Relationship Specialty Start Date End Date Yaw Gibbs MD [address] [place], [place] [address] [place] [address] PCP - General Internal Medicine 03/23/20 Lisa Dickerson DO Surgeon Orthopedic Surgery 07/25/18 [place] [address] [place] [address] Surgeon Orthopedic Surgery 07/25/18 [place] [address] [place] [address] Referring Physician Rheumatology 07/25/18 [place] [address] [place] [address] Surgeon Orthopedic Surgery 07/25/18 Trav Vaughn MD [address] [place] [address] Referring Physician Ophthalmology 07/25/18 Calixto Sweet MD [address] [place], [place] [address] [place] [address] Consulting Physician Orthopedic Surgery 08/04/20 Nuzhat Saunders MD [address] [place], [place] [address] [place] [address] Consulting Physician Dermatology 08/04/20 Karol Mills MD [address] [facility] [address] [place] [address] Consulting Physician Obstetrics and Gynecology 08/05/20 Socorro Gamboa, KALEN [address] [facility] [address] [place] [address] Physical Therapist Physical Therapy 10/05/22
--- OUTSIDE RECORDS SUMMARY | 2024-08-08 08:31 | XMS_ITS | Patient Health Summary ---
Author Organization [facility] Address [address] [facility] [place] [address] Care Team Providers Care Firer Watertender Name Role Phone Yaw Gibbs MD Primary Care Provider [phone] Note from [facility],non-owned Affiliates and Associated Physician Practices is amultiple site organization consisting of ambulatory clinics and hospital sitesin [place], [place], [place] and [place]. This disclosure is being madepursuant to the Care Everywhere program and may not contain all information available regarding this patient. Last updated 18.[facility] [employer] Allergies * Barbiturates Medications * Be aware that medications may not be up to date on this document. Alwaysverify current medications with the patient. * LISINOPRIL PO * Sertraline HCl (ZOLOFT PO) * ALLOPURINOL PO * MELOXICAM PO * Omeprazole (PRILOSEC PO) * VITAMIN D, CHOLECALCIFEROL, PO Immunizations * INFLUENZA VACCINE, QUADR. (FLUZONE; FLULAVAL; FLUARIX; AFLURIA QUADRIVALENT; 6MO+), 0.5 ML (IIV4)(Given 03/12/2020, 03/06/2017) Social History Tobacco Use Types Packs/Day Years Used Date Smoking Tobacco: Never Assessed Sex and Gender Information Value Date Recorded Sex Assigned at Not on file Gender Identity Not on file Sexual Orientation Not on file Last Filed Vital Signs Vital Sign Reading Time Taken Comments Blood Pressure 128/72 06/02/2016 2:37 PM DIVERSIFIED CROPS II FARMWORKER Pulse 114 06/02/2016 2:37 PM DIVERSIFIED CROPS II FARMWORKER Temperature 37.2 C (99 F) 06/02/2016 2:37 PM DIVERSIFIED CROPS II FARMWORKER Respiratory Rate 18 06/02/2016 2:37 PM DIVERSIFIED CROPS II FARMWORKER Oxygen Saturation 98% 06/02/2016 2:37 PM DIVERSIFIED CROPS II FARMWORKER Inhaled Oxygen Concentration - - Weight 106.6 kg (235 lb) 06/02/2016 2:37 PM DIVERSIFIED CROPS II FARMWORKER Height 165.1 cm (5' 5 ) 06/02/2016 2:37 PM DIVERSIFIED CROPS II FARMWORKER Body Mass Index 39.11 06/02/2016 2:37 PM DIVERSIFIED CROPS II FARMWORKER Procedures * STREP A SCREEN - POINT OF CARE (AMB) STL(Performed 06/02/2016) Performed for Nasopharyngitis acute Results * STREP A SCREEN - POINT OF CARE (AMB) STL (06/02/2016) Strep A Rapid POCT Negative Negative Strep A Internal Control Present Lot # [id number] Expiration Date 02/15/2018 Throat ENTIRE THROAT (SURFACE REGION OF NECK) / Unknown 06/02/2016 Maribel Shannon LGSW-HYDRO ELECTRIC STATION OPERATOR LAB - POINT OF C ARE ORDERABLES Care Teams Firer Watertender Relationship Specialty Start Date End Date Yaw Gibbs MD [address] [place] [address] [address] [address] PCP - General 10/28/20
== END 2024-08-08 08:25 | disposition home or self-care (01) ==
LOC: ANHIMG 08:26
PROVIDERS: PCP Internal Medicine; Visit Provider Orthopaedic Surgery
DX: M19.011 Primary osteoarthritis, right shoulder (principal)
CPT/HCPCS: 73030

== ENCOUNTER 2024-11-07 08:27 | Outpatient (CLI) | payer MEDICARE, SELFPAY ==
--- NOTE | ~2024-11-07 | XR_ITS ---
Left Shoulder Technique: AP and scapular Y views were obtained. Clinical History: Pain Findings: No fracture or dislocation is seen. Osseous alignment is anatomic. The glenohumeral joint d emonstrate moderate degenerative change. There is mild AC joint degenerative change. Soft tissues are unremarkable. Impression: Degenerative changes, as above. Reviewed, dictated and finalized at location . Impression: Degenerative changes, as above.
== END 2024-11-07 08:28 | disposition home or self-care (01) ==
PROVIDERS: PCP Internal Medicine; Visit Provider Orthopaedic Surgery
DX: M71.312 Other bursal cyst, left shoulder (principal); M19.012 Primary osteoarthritis, left shoulder
CPT/HCPCS: 73030

== ENCOUNTER 2025-02-19 15:17 | Outpatient (CLI) | payer MEDICARE, SELFPAY ==
--- NOTE | ~2025-02-19 | CT_ITS ---
EXAMINATION: CT_STKSHORTWO_CT DATE: 02/19/2025 15:39 INDICATION: Right shoulder osteoarthritis for preoperative planning TECHNIQUE: High resolution computed tomography (CT) of the right shoulder was performed without intravenous contrast. Additional sagittal and coronal reconstructions were performed. Automated exposure control and iterative reconstruction technique were employed. The dose-length product was 339.91 mGy-c m. COMPARISON: Right shoulder radiographs dated 08/08/2024 FINDINGS: Bone alignment is normal. No fracture. Advanced right glenohumeral osteoarthritis with large marginal osteophytes along the humeral head and glenoid. There is severe joint space narrowing with remodeling of the posterior 1/2 to 2/3 of the glenoid with some loss of bone stock resulting in 17 degree required retroversion. Moderate right acromioclavicular osteoarthritis. No joint effusions. There is prominent cystic change underlying the greater tuberosity which could be related to chronic rotator cuff disease. There is mild atrophy of the supraspinatus muscle belly with concave contour to the cephalad margin of the posterior muscle belly. Mild atelectasis/scarring at the posterior right apex. No pathologically enlarged lymphadenopathy at the right axilla, right hilum or visualized right side of the mediastinum. IMPRESSION: 1. Advanced right glenohumeral osteoarthritis. 2. Mild atrophy the supraspinatus muscle belly and prominent cystic change underlying the greater tuberosity which suggests sequela of chronic rotator cuff disease. Reviewed, dictated and finalized at location A. IMPRESSION: 1. Advanced right glenohumeral osteoarthritis. 2. Mild atrophy the supraspinatus muscle belly and prominent cystic change unde rlying the greater tuberosity which suggests sequela of chronic rotator cuff di sease.
--- OUTSIDE RECORDS SUMMARY | 2025-02-19 15:23 | XMS_ITS | Clinical Summary ---
Author Organization [facility] [email or web address] Address [address] [place] [address] Care Team Providers Care Aerospace Mechanic Name Role Phone Yaw Gibbs MD Primary Care Provider [phone] Source Comments [facility] [email or web address],non-owned Affiliates and Associated Physician Practices is amultiple site organization consisting of ambulatory clinics and hospital sitesin [place], [place], [place] and [place]. This disclosure is being madepursuant to the Care Everywhere program and may not contain all information available regarding this patient. Last updated 18.[facility] [email or web address] Allergies Active Allergy Reactions Criticality Noted Date Comments Barbiturates 06/02/2016 Medications * Be aware that medications may not be up to date on this document. Alwaysverify current medications with the patient. LISINOPRIL PO Active Sertraline HCl (ZOLOFT PO) Active ALLOPURINOL PO Activ e MELOXICAM PO Active Omeprazole (PRILOSEC PO) Active VITAMIN D, CHOLECALCIFEROL, PO Active Immunizations Immunization Administration Dates Next Due INFLUENZA VACCINE, QUADR. (F LUZONE; FLULAVAL; FLUARIX; AFLURIA QUADRIVALENT; 6MO+), 0.5 ML (IIV4) 03/12/2020,03/06/2017 Social History Tobacco Use Types Packs/Day Years Used Date Smoking Tobacco: Never Assessed Comments Unknown Sex and Gender Information Value Date Recorded Sex Assigned at Not on file Legal Sex Female 2:10 PM DIRECTOR OF RESIDENTIAL SERVICES Gender Identity Not on file Sexual Orientation Not on file Last Filed Vital Signs Vital Sign Reading Time Taken Comments Blood Pressure 128/72 06/02/2016 2:37 PM DIRECTOR OF RESIDENTIAL SERVICES Pulse 114 06/02/2016 2:37 PM DIRECTOR OF RESIDENTIAL SERVICES Temperature 37.2 C (99 F) 06/02/2016 2:37 PM DIRECTOR OF RESIDENTIAL SERVICES Respiratory Rate 18 06/02/2016 2:37 PM DIRECTOR OF RESIDENTIAL SERVICES Oxygen Saturation 98% 06/02/2016 2:37 PM DIRECTOR OF RESIDENTIAL SERVICES Inhaled Oxygen Concentration - - Weight 106.6 kg (235 lb) 06/02/2016 2:37 PM DIRECTOR OF RESIDENTIAL SERVICES Height 165.1 cm (5' 5) 06/02/2016 2:37 PM DIRECTOR OF RESIDENTIAL SERVICES Body Mass Index 39.11 06/02/2016 2:37 PM DIRECTOR OF RESIDENTIAL SERVICES Plan of Treatment Health Maintenance Due Date Last Done Comments BONE DENSITY TESTING 1960 COLOGUARD (AGES 45-75) - COLON CA SCREENING 1960 COLON MONITORING 1960 COLONOSCOPY - COLON CA SCREENING 1960 CT COLONOGRAPHY - COLON CA SCREENING 1960 Colorectal Cancer Screening 1960 FIT - COLON CA SCREENING 1960 FLEX SIG - COLON CA SCREENING 1960 LIPID TESTING 1960 MAMMOGRAM 1960 HEPATITIS C SCREENING 08/09/1976 DTAP/TDAP/TD VACCINES (1 - Tdap) 1977 PNEUMOCOCCAL VACCINE 50+ (1 of 1 - PCV) 2008 ZOSTER VACCINE (1 of 2) 2008 COVID-19 VACCINE (1 - 2023- season) 2024 DEPRESSION SCREENING 06/25/2024 INFLUENZA VACCINE (#1) 2025 , 03/25/2019, 03/25/2018, Additional history exists Respiratory Syncytial Virus (RSV) Vaccine Pt: or [...] complete this topic MENINGOCOCCAL (Group B) VACCINE SHARED DECISION-MAKING Aged Out No longer eligible based on patient's age to complete this topic MENINGOCOCCAL GROUPS A/C/Y/W VACCINE Aged Out No longer eligible based on patient's age to complete this topic Insurance [employer] HE[employer] Care Teams Aerospace Mechanic Relationship Specialty Start Date End Date Yaw Gibbs MD [address] [place] [address] [address] [place] [address] PCP - General 10/28/20
--- OUTSIDE RECORDS SUMMARY | 2025-02-19 15:23 | XMS_ITS | Encounter Summary ---
Author Organization [facility] Address [address] [place] [address] Care Team Providers Care Forest Scientist Name Role Phone Adriano Ralph MD, Hernandez Morrow Primary Care Provider Christine vailable Encounter Details Date Type Department Care Team (Latest Contact Info) Description 11/27/2005 Outpatient Historical [facility] Hernandez Oh Jr., MD NO ADDRESS ON FILE Other Screening Mammogram (Primary Dx) Social History Tobacco Use Types Packs/Day Years Used Date Smoking Tobacco: Never Assessed Comments Unknown Sex and Gender Information Value Date Recorded Sex Assigned at Not on file Legal Sex Female 2:45 AM HYDROPONICS WORKER Gender Identity Not on file Sexual Orientation Not on file documented as of this encounter Plan of Treatment Not on file documented as of this encounter Visit Diagnoses Diagnosis Other screening mammogram- Primary documented in this encounter Care Teams Forest Scientist Relationship Specialty Start Date End Date Hernandez Oh Jr., MD PCP - General 04/05/09 06/19/12 documented as of this encounter
--- OUTSIDE RECORDS SUMMARY | 2025-02-19 15:23 | XMS_ITS | Encounter Summary ---
Author Organization [facility] Address [address] [place] [address] Care Team Providers Care Service Operations Manager Name Role Phone Lisa Dickerson Unavailable [phone] Rony Sharp MD Unavailable [phone] Watler Ralph MD, Sheldon Tompkins Unavailable + Akash Lagos MD Unavailable Trav Vaughn MD Unavailable Eliezer Garcia MD Unavailable Yaw Gibbs MD Primary Care Provider + Calixto Sweet MD Unavailable [phone] Nuzhat Saunders MD Unavailable [phone] Karol Mills MD Unavailable Socorro Gamboa DPT Unavailab le Oliver Diamond LMRd Unavailable Unavaila ble Encounter Details Date Type Department Care Team (Late st Contact Info) Description 10/18/2020 Telephone [place] [address] [place] [address] Alena Motley, RT Social History Tobacco Use [...] on file Legal Sex Female 1:02 AM GROCERY MANAGER Gender Identity Female 10/10/2023 1:18 PM CDT [...] on filedocumented in this encounter Care Teams Service Operations Manager Relationship Specialty Start Date End Date Yaw Gibbs MD [address] [place] [address] [address] [place] [address] PCP - General Internal Medicine 03/23/20 Lisa Dickerson DO Surgeon Orthopedic Surgery 07/25/18 [place] [address] [place] [address] Surgeon Orthopedic Surgery 07/25/18 [place] [address] [place] [address] Referring Physician Rheumatology 07/25/18 [place] [address] [place] [address] Surgeon Orthopedic Surgery 07/25/18 Trav Vaughn MD [address] [place] [address] Referring Physician Ophthalmology 07/25/18 Eliezer Garcia MD [address] [place] [address] Consulting Physician Gastroenterology 07/25/18 03/24/21 Calixto Sweet MD [address] [place], [place] [address] [place] [address] Consulting Physician Orthopedic Surgery 08/04/20 Nuzhat Saunders MD [address] [place], [place] [address] [place] [address] Consulting Physician Dermatology 08/04/20 Karol Mills MD [address] [place], [place] [address] [place] [address] Consulting Physician Obstetrics and Gynecology 08/05/20 Socorro Gamboa DPT [address] [facility] [address] [place] [address] Physical Therapist Physical Therapy 10/05/22 Oliver Diamond LMT Massage Therapy 08/21/24 documented as of this encounter
--- OUTSIDE RECORDS SUMMARY | 2025-02-19 15:23 | XMS_ITS | Clinical Summary ---
Author Organization [facility] Address [address] [place] [address] Care Team Providers Care Manager Privacy Name Role Phone Lisa Dickerson DO Unavailable [phone] Rony Sharp MD Unavailable Walter Ralph MD, Sheldon Tompkins Unavailable + Akash Lagos MD Unavailable Trav Vaughn MD Unavailable Yaw Gibbs MD Primary Care Provider + Calixto Sweet MD Unavailable Nuzhat Saunders MD Unavailable Karol Mills MD Unavailable [phone] Socorro Gamboa DPT Unavailab le Oliver Diamond LMT Unavailable Unavaila ble Allergies Active Allergy Reactions Criticality Noted Date [...] vagina 2-3 times per week (such as Sunday/ y/Sunday) 42.5 g 3 3 Active acetaminophen ER (TYLENOL) 650 mg 8 hr tabletIndicatio ns:Pain Take 2 tablets (1,300 mg total) by mouth 2 (two) times a day Active leflunomide (ARAVA) 20 mg tabletIndicatio ns:Rheumatoid Arthritis Take 1 tablet (20 mg total) by mouth daily 90 tablet 1 4 Active atorvastatin (LIPITOR) 10 mg tablet Take 1 tablet (10 mg total) by mouth daily 90 tablet 3 4 05/14/20 25 Active HYDROcodone-lobito taminophen (NORCO) 5-325 mg per tabletIndicatio ns:Pain Take 1 tablet by mouth every 8 (eight) hours as needed for pain 30 tablet 4 Active omeprazole (PriLOSEC) 20 mg capsule Take 1 capsule (20 mg total) by mouth daily 90 capsule 3 5 Active sertraline (ZOLOFT) 100 mg tabletIndicatio ns:Mild episode of recurrent major depressive disorder Take 1.5 tablets (150 mg total) by mouth daily 135 tablet 3 5 Active ondansetron (ZOFRAN) 4 mg tabletIndicatio ns:Nausea and Vomiting Take 1 tablet (4 mg total) by mouth every 12 (twelve) hours as needed for nausea or vomiting 20 tablet 5 Active triamcinolone (KENALOG) 0.1 % creamIndication s:Skin Inflammation,sk in rash Apply to affected area 1-2 times daily as needed for rash for up to 7 days. Do not apply to face, armpits or groin 80 g 5 5 08/07/19 Active albuterol HFA (PROVENTIL HFA,VENTOLIN HFA,PROAIR HFA) 90 mcg/actuation inhalerIndicati ons:Bronchospas m Prevention Inhale 2 puffs every 6 (six) hours as needed for wheezing 1 each 3 5 12/11/19 Active lidocaine (LIDODERM) 5 %Indications:Lo wer Back Pain Place 1 patch on the skin daily for 12 hours 30 patch 5 5 Active Active Problems Patient Care Coordination No te [...] surgical evaluation. Problem Noted Date Diagnosed Date Preoperative clearance 02/10/2025 Assessment & Plan (02/10/2025 9:03 AM CDT): Pt is medically stable and/or cleared to proceed with surgery per internal medicine standpoint once all labs and other diagnostics (possibly including labs, EKG, based on surgeon discretion, PMHx risks) have been received and reviewed. If applicable, RCRI evaluated and addressed through detailed Any specific pre- or postoperative restrictions, recommendations including holding prescribed or OTC RX, reportable concerns interim of surgery deferred to surgeon. Preop clearance forms, pertinent labs, diagnostics & OV note(s) forwarded to surgeon as requested Pulmonary nodules 12/10/2024 Mild emphysema 12/10/2024 Ureteral stricture 10/03/2024 Spinal stenosis, lumbar kobe on, with neurogenic claudication 08/21/2024 Ascending aorta dilation 08/10/2024 Situational depression 05/06/2024 Recurrent major depressive disorder, in remissio n 10/18/2023 Snoring 10/18/2023 Chronic midline thoracic back pain 12/27/2022 Shingles 11/23/2022 Stage 3a chronic kidney disease 09/27/2022 Assessment & Plan (02/13/2024 12:56 PM CDT): Kidney function stable Recommending follow-up with contract administration specialist to discuss further treatment of hypertension Internal hemorrhoids 09/27/2022 Seasonal allergies 09/27/2022 Varicose vein of leg 09/27/2022 Osteopenia of neck of femur 08/31/2022 Overview (08/31/2022): T-score femoral neck 08/2022= -1.5 Frax is 19/1 Adjustment for TBS 19/1.1 Assessment & Plan (08/31/2022 10:15 AM SLIP MIXER): At this point we will observe and [...] aorta 05/12/2021 Rheumatoid arthritis 03/25/2021 Prediabetes 11/29/2020 Other irritable bowel syndrome 08/05/2020 Medical marijuana [...] Gibbs Essential hypertension 06/13/2012 Assessment & Plan (02/10/2025 9:04 AM CDT): BP stable without medications Assessment & Plan (04/30/2024 1:34 PM SLIP MIXER): BP elevated today She is angry and crying. Also has severe pain today Assessment & Plan (03/14/2024 3:36 PM CDT): Off clonidine per contract administration specialist and BP has been stable at home Assessment & Plan (02/13/2024 12:49 PM CDT): BP labile at home Noting unwanted side effects from clonidine Discussed management with PCP, recommending follow up with Document Examiner due to kidney disease Resolved Problems Problem Noted Date Diagnosed Date Resolved Date BMI 33.0-33.9,adult 09/17/2024 12/11/19 25 Class 2 obesity with body ma ss index (BMI) of 35.0 to 35.9 in adult 09/17/2024 12/10/2024 BMI 34.0-34.9,adult 08/27/2024 12/11/19 25 Stage 3b chronic kidney dise ase (HCC) [N18.32] 08/06/2024 12/10/2024 Class 2 severe obesity due t o excess calories with serious comorbidity and body mass index (BMI) of 36.0 to 36.9 in adult (HCC) [E66.812, E66.01, Z68.36] 07/31/2024 12/10/2024 BMI 36.0-36.9,adult 07/31/2024 12/11/19 25 Shortness of breath 06/04/2024 12/11/19 25 H/O: HTN (hypertension) 08/10/2023 04/2 10/2023 Acute cystitis with hematuria 08/10/2023 10/18/2023 Mild episode of recurrent ma conrad depressive disorder 04/19/2022 10/18/2023 Ischemic colitis 08/17/2021 10/18/2023 Class 2 severe obesity due t o excess calories with serious comorbidity and body mass index (BMI) of 35.0 to 35.9 in adult 08/05/2020 Encounter for preventive health examination 09/04/2017 03/13/2018 Skin lesion 09/04/2017 03/13/2018 Upper respiratory tract infection 09/04/2017 03/13/2018 Increased frequency of urination 09/27/2015 03/13/2018 Colon cancer screening 11/17/201403/13 Encounter for initial preven tive physical examination covered by Medicare 11/17/2014 12/26/19 24 Encounters Date Type Department Care Team Description 02/12/[address] [phone] Yaw Gibbs MD 02/12/[address] [phone] Yaw Gibbs MD Surgical Clearance (Dr. Ospina) 02/10/2025 9:40 AM CDT Office Visit [facility] Orthopaedic Surgery [address] [place] [address] Erin Correia MD Chronic pain syndrome (Primary Dx); Chronic bilateral low back pain without sciatica 02/10/2025 8:30 AM CDT Office Visit [address] [phone] Julianna Zambrano DNP Preoperative clearance (Primary Dx); Chronic right shoulder pain; Essential hypertension 02/06/2025 Results Follow-Up [address] [phone] Yaw Gibbs MD Renal function panel, eGFR 02/05/2025 2:25 PM CDT Lab [address] [address] Stage 3a chronic kidney disease (HCC) 01/22/2025 Telephone [facility] Infectious Diseases [address] [place] [address] Kee Colón RPh Travel Vaccine Administered 01/13/[address] [place] [address] Sally Guzman Appointment 01/12/[address] [place] [address] Yaw Gibbs MD Request Medical Clearance 01/08/2025 10:30 AM CDT Clinical Support [facility] Orthopaedic Surgery [address] [place] [address] [address] [place] [phone] Claudia Peace NP BMI 33.0-33.9,adult (Primary Dx); Prediabetes [R73.03] 01/02/2025 Documentation [facility] Nephrology [address] 5th [place] [address] [place] [address] Terrance Harris MD Nephrology Clearance 12/23/[address] [place] [address] Yaw Gibbs MD Med Count Request (Atorvastatin) 12/22/2024 8:20 AM CDT Office Visit [facility] Orthopaedic Surgery [address] [place] [address] 4 [address] [place] [phone] Erin Correia MD Chronic bilateral low back pain without sciatica (Primary Dx); Follow-up exam; Chronic pain syndrome 12/11/2024 10:30 AM CDT Clinical Support [facility] Orthopaedic Surgery [address] [place] [address] 4 [address] [place] [phone] Claudia Peace NP BMI 33.0-33.9,adult (Primary Dx); Chronic pain syndrome 12/11/2024 9:40 AM CDT Office Visit [facility] Medicine Infectious Diseases [address] [place] [phone] Leandra Ortiz NP Travel advice encounter 12/11/2024 Results Follow-Up [address] [phone] Yaw Gibbs MD Vitamin B12, Thyroid Function [place], Lipid panel, Additional followed-up results: 3 12/10/2024 10:05 AM CDT Lab [facility] [address] [phone] Situational depression; Medicare annual wellness visit, subsequent; Prediabetes; Mixed hyperlipidemia; Stage 3a chronic kidney disease (HCC) 12/10/2024 9:15 AM CDT Office Visit [address] [phone] Yaw Gibbs MD Preoperative clearance (Primary Dx); Chronic right shoulder pain; Chronic pain syndrome; Essential hypertension; Osteopenia of neck of left femur; Rheumatoid arthritis involving multiple sites with positive rheumatoid factor (HCC); Mild emphysema (HCC); Counseling for travel; Situational depression; Mixed hyperlipidemia; Medicare annual wellness visit, subsequent; Prediabetes; Stage 3a chronic kidney disease (HCC); Varicose veins of both lower extremities with pain 12/09/2024 8:00 AM CDT Office Visit [facility] Medicine Surgery [address] [facility] [address] [place] [phone] Reese Myers MD Lung nodule (Primary Dx); Multiple lung nodules 12/09/2024 6:57 AM CDT - 12/09/2024 11:59 PM CDT Hospital Encounter [facility] [address] [address] [address] Multiple lung nodules Discharge Disposition: Discharge to home or self care 12/09/[address] [place] [phone] Yaw Gibbs MD Appointment 11/19/2024 1:00 PM CDT Office Visit [facility] Medicine Orthopaedic Surgery [address] [place] [address] Claudia Peace NP BMI 33.0-33.9,adult (Primary Dx); Follow-up exam; Prediabetes [R73.03]; Mixed hyperlipidemia; Essential hypertension from Last 3 Months Immunizations Immunization Administration Dates Next Due COVID-19 MRNA (MODERNA) [...] PF, IM (Arexvy) 04/25/2023 Tdap 09/27/2021,06/13/2012 Typhoid Inactivated 01/22/2025 Typhoid Live 07/25/2018,09/23/2016 ZOSTER LIVE 05/05/2015 ZOSTER [...] JOINT BILATERAL WITH GUIDANCE 05/15/2018 Bilateral APPENDECTOMY 1969 CHOLECYSTECTOMY 1996 IR INJECTION ARTHROGRAM SI JOINT BILATERAL WITH [...] W KUB 06/12/2024 Left SECTION JOINT REPLACEMENT 2005 ABDOMINAL SURGERY 1968 FL UPPER GI AIR CONTRAST W KUB 08/28/2024 Left DILATION AND CURETTAGE OF UTERUS 1965 FRACTURE SURGERY Pelvis/ yore ham string musclesaway from plevis. 04/2017 Medical History Medical History Date Comments Crossing [...] colon Gout Rheumatoid arthritis (HCC) Ischemic colitis Depression 1999 Hypertension Osteopenia Chronic kidney disease 2015 Autoimmune disease 02/2021 GI (gastrointestinal bleed) 2010 Urinary tract infection 06/16 Urinary incontinence 2014 Menopause ovarian failure 2004 Family History Medical History Relation Name Comments Allergy (severe) Brother Eliel Fernandez Arthritis Brother Eliel Fernandez Allergy (severe) Father Dom long Coronary artery disease Father Dom long Early Father Dom long Heart attack Father Dom long Heart disease Father Dom long Hypertension Father Dom long Skin cancer Father Dom long Depression Maternal Grandmother Zulema Efren Mental illness Maternal Grandmother Zulema Efren Arthritis Mother Felicitas Long Breast cancer Mother Felicitas Long Cancer Mother Felicitas Long Osteoporosis Mother Felicitas Long Rheum arthritis Mother Felicitas Long Skin cancer Mother Felicitasivonne Fernandez Memory loss Paternal Grandmother Amanda Long Arthritis Sister 1 Daja Degroot Diabetes Sister 1 Daja Degroot Rheum arthritis Sister 2 Arthritis Sister 3 Mercedez Dhruv Diabetes Sister 4 Daja Alcohol abuse Son Taqueria Valentin Depression Son Taqueria Valentin Colon cancer Neg Hx Prostate cancer Neg Hx Relation Name Status Comments Brother Eliel Fernandez Father Dom long Maternal Grandmother Zulema Efren Mother Felciitas Long Paternal Grandmother Amanda Long Sister 1 Daja Degroot Sister 2 Sister 3 Mercedez Dhruv Sister 4 Daja Alive Son Taqueria Valentin Social History Tobacco Use Types Packs/Day Years Used Date Smoking Tobacco: Never Smokeless Tobacco: Never Tobacco Cessation:Counseling Given: Not [...] on file Legal Sex Female 1:02 AM SLIP MIXER Gender Identity Female 10/10/2023 1:18 PM CDT [...] Sign Reading Time Taken Comments Blood Pressure 138/78 02/10/2025 8:28 AM CDT Pulse 82 02/10/2025 8:28 AM CDT Temperature 36.7 C (98 F) 02/10/2025 8:28 AM CDT Respiratory Rate 20 08/28/2024 8:38 AM SLIP MIXER Oxygen Saturation 97% 02/10/2025 8:28 AM CDT Inhaled Oxygen Concentration - - Weight 86.4 kg (190 lb 8 oz) 02/10/2025 8:28 AM CDT Height 160 cm (5' 3) 02/10/2025 8:28 AM CDT Body Mass Index 33.75 02/10/2025 8:28 AM CDT Plan of Treatment Health Maintenance Due Date Last Done Comments Pneumococcal vaccine 65+ (2 of 2 - PCV) 08/05/2021 08/05/2020 Covid-19 Vaccine (2023-2 5 season) 2024 02/29/2024, 02/23/2023, 02/09/2023, Additional history exists Depression Screening 10/17/2024 10/18/2023, 09/27/2022, 09/27/2021, Additional history exists Well Visit 65+ 10/17/2024 10/18/2023, 0410/2023, 09/27/2022, Additional history exists Fall Risk Assessment 11/12/2024 11/13/2023, 10/18/19 24 Influenza Vaccine (#1) 2025 , 04/17/2023, 03/25/2023, Additional history exists Breast Cancer Screening-Mammogram 05/27/2025 05/27/2024, 05/16/2023, 11/01/2021, Additional history exists Colon Cancer Screening-Colonoscopy 07/26/2025 07/26/2022, 07/12/2021, 09/06/2012 Osteoporosis Screening-Bone Density Scan 10/01/2026 10/01/2024, 08/31/2022, 08/23/2022 DTaP/Tdap/Td Vaccine (3 - Td or Tdap) 09/28/2031 09/27/2021, 06/13/2012 Colon Cancer Screening-CT Colonography Discontinued 07/26/2022, 07/12/2021, 09/06/2012 Colon Cancer Screening-DNA Stool Discontinued 07/26/2022, 07/12/2021, 09/06/2012 Colon Cancer Screening-FIT Discontinued 07/26, 07/12/2021, 09/06/2012 Colon Cancer Screening-Sigmoidoscopy Discontinued 07/26/2022, 07/12/2021, 09/06/2012 Zoster Vaccine Discontinued 04/17/2023, 0906/2022, 02/09/2023, Additional history exists Cervical Cancer Screening Discontinued 09/24/2023, 06/2016 Hepatitis C Screening Completed 12/13/2023 , 02/07/2021, 07/25/2018 Hepatitis B Screening Discontinued Goals Goal Patient [...] as needed Medical Devices Implanted Type Area Assembly Lead Person Device Identifier Shelf Expiration Date Model / Serial / Lot Arthroplasty Knee Anchors Pelvis Procedures Procedure Name Priority Date/Time Associated Diagnosis Comments ECG 12-LEAD Routine 02/10/2025 8:42 AM CDT Preoperative clearance EGFR Routine 02/05/2025 2:38 PM CDT Stage 3a chronic kidney disease (HCC) RENAL FUNCTION PANEL Routine 02/05/2025 2:38 PM CDT Stage 3a chronic kidney disease (HCC) EGFR Routine 12/10/2024 10:06 AM CDT Mixed hyperlipidemia Medicare annual wellness visit, subsequent Stage 3a chronic kidney disease (HCC) COMPREHENSIVE METABOLIC PANEL Routine 12/10/2024 10:06 AM CDT Mixed hyperlipidemia Medicare annual wellness visit, subsequent Stage 3a chronic kidney disease (HCC) HEMOGLOBIN A1C Routine 12/10/2024 10:06 AM CDT Medicare annual wellness visit, subsequent Prediabetes LIPID PANEL Routine 12/10/2024 10:06 AM CDT Mixed hyperlipidemia Medicare annual wellness visit, subsequent THYROID FUNCTION CASCADE Routine 12/10/2024 10:06 AM CDT Medicare annual wellness visit, subsequent VITAMIN B12 Routine 12/10/2024 10:06 AM CDT Situational depression Medicare annual wellness visit, subsequent Prediabetes ELECTROCARDIOGRAM REPORT Routine 12/10/2024 9:16 AM CDT Preoperative clearance CT CHEST WO CONTRAST Schedule Routine, Read Routine (OP Routine) 12/09/2024 7:06 AM CDT Multiple lung nodules DEXA TBS AXIAL SKELETON BONE DENSITY 1 OR MORE SITES Schedule Routine, Read Routine (OP Routine) 10/01/2024 12:10 PM CDT Age-related osteoporosis without current pathological fracture SCREENING MAMMOGRAM BILATERAL W KENROY Schedule Routine, Read Routine (OP Routine) 05/27/2024 8:19 AM SLIP MIXER Screening mammogram, encounter for HEPATITIS C ANTIBODY Routine 12/13/2023 12:54 PM CDT Rheumatoid arthritis of multiple sites without rheumatoid factor (HCC) Encounter for long-term (current) use of other medications HM COLONOSCOPY Routine 07/26/2022 HM PAP SMEAR WITH HPV Routine 06/25/2016 from Last 3 Months or Most Recently Relevant to Health Maintenance Results * ECG 12-LEAD (02/10/2025 8:42 AM CDT) Narrative Ligia Sanchez RMA - 02/10/2025 8:42 AM CDT Julianna Zambrano DNP 02/10/2025 8:44 AM ECG 12 lead Date/Time: 02/10/2025 8:42 AM Performed by: Julianna Zambrano DNP Authorized by: Julianna Zambrano DNP Comparison: compared with previous ECG from 12/10/2024 Similar to previous ECG Rhythm: sinus rhythm Rate: normal BPM: 72 QRS axis: normal Conduction: conduction normal ST Segments: ST segments normal Clinical impression: normal ECG Procedure Note Julianna Zambrano DNP - 02/10/2025 8:30 AM CDT ECG 12 lead Date/Time: 02/10/2025 8:42 AM Performed by: Julianna Zambrano DNP Authorized by: Julianna Zambrano DNP Comparison: compared with previousECG from 12/10/2024 Similar to previous ECG Rhythm: sinus rhythm Rate: normal BPM: 72 QRS axis: normal Conduction: conduction normal ST Segments: ST segments normal Clinical impression: normal ECG Julianna D. Welvers DNP ECG ORDERABLES Final Resu lt * (ABNORMAL) eGFR (02/05/2025 2:38 PM CDT) [facility] eGFR 42(L) >=60 mL/min/1. 73 m2 Comment: Interpretive Data Reference Interval Normal >/= 90 mL/min/1.73m2 Mildly decreased* 60 - 89 mL/min/1.73m2 Mildly to moderately decreased 45 - 59 mL/min/1.73m2 Moderately to severely decreased 30 - 44 mL/min/1.73m2 Severely decreased 15 - 29 mL/min/1.73m2 Kidney Failure < 15 mL/min/1.73m2 *Relative to young adult level Estimated glomerular filtration rate is determined by the 2020 CKD-EPI equation recommended by the National Kidney Foundation (A Unifying Approach to GFR Estimation: Recommendations of the NKF-ASK Task Force on Reassessing the Inclusion of Race in Diagnosing Kidney Disease, JASN 2020). The CKD-EPI equation should not be used for patients with unstable renal function and has not been validated in children and those over 70. Current interpretive data was last reviewed 2021. Blood 02/05/2025 2:38 PM CDT 02/05/2025 5:56 PM CDT Yaw Gibbs MD LAB BLOOD ORDERABLES [facility] Result [facility] [address] Department [place] [address] * (ABNORMAL) Renal function panel (02/05/2025 2:38 PM CDT) [facility] Sodium 139 135 - 145 mmol/L Potassium, pl 5.0(H) 3.3 - 4.9 mmol/L [facility] Chloride 106 97 - 110 mmol/L [facility] CO2 24 22 - 32 mmol/L [facility] Anion gap 9 2 - 15 mmol/L [facility] BUN 21 6 - 25 mg/dL [facility] Creatinine 1.39(H) 0.60 - 1.10 mg/dL [facility] Glucose 85 70 - 199 mg/dL [facility] Comment: Interpretive Data Fasting glucose >/= 126 mg/dl is diagnostic for diabetes. Fasting is defined as no caloric intake for at least 8 hours. Fasting glucose between 100 mg/dl to 125 mg/dl is diagnostic of prediabetes. In a patient with classic symptoms of hyperglycemia or hyperglycemic crisis, a random glucose >/= 200 mg/dl is diagnostic for diabetes. In the absence of unequivocal hyperglycemia, results should be confirmed by repeat testing. The classification and Diagnosis of Diabetes Diabetes Care 202; 46: S19-S40. Current interpretive data was last revised 2022. Calcium 9.2 8.5 - 10.3 mg/dL [facility] Phosphorus, pl 3.5 2.3 - 4.5 mg/dL [facility] Albumin 3.9 3.5 - 5.0 g/dL [facility] Blood 02/05/2025 2:38 PM CDT 02/05/2025 5:56 PM CDT us Yaw Gibbs MD LAB BLOOD ORDERABLES [facility] al Result [facility] [address] Department [place] [address] * (ABNORMAL) eGFR (12/10/2024 10:06 AM CDT) eGFR 39(L) >=60 mL/min/1. 73 m2 Comment: Interpretive Data Reference Interval Normal >/= 90 mL/min/1.73m2 Mildly decreased* 60 - 89 mL/min/1.73m2 Mildly to moderately decreased 45 - 59 mL/min/1.73m2 Moderately to severely decreased 30 - 44 mL/min/1.73m2 Severely decreased 15 - 29 mL/min/1.73m2 Kidney Failure < 15 mL/min/1.73m2 *Relative to young adult level Estimated glomerular filtration rate is determined by the 2020 CKD-EPI equation recommended by the National Kidney Foundation (A Unifying Approach to GFR Estimation: Recommendations of the NKF-ASK Task Force on Reassessing the Inclusion of Race in Diagnosing Kidney Disease, JASN 2020). The CKD-EPI equation should not be used for patients with unstable renal function and has not been validated in children and those over 70. Current interpretive data was last reviewed 2021. Blood 12/10/2024 10:0 6 AM CDT 12/10/2024 1:40 PM CDT Result [facility] Yaw Gibbs MD LAB BLOOD ORDERABLES Fin al Result Performing Organization Address [facility] de Phone Number [facility] [place] [address] * Thyroid Function [place] (12/10/2024 10:06 AM CDT) TSH 1.21 0.30 - 4.20 mcIUnit/mL Blood 12/10/2024 10:0 6 AM CDT 12/10/2024 1:34 PM CDT Result [facility] Yaw Gibbs MD LAB BLOOD ORDERABLES Fin al Result Performing Organization Address [facility] Phone Number [facility] [place] [address] * Hemoglobin A1c (12/10/2024 10:06 AM CDT) Hgb A1C 5.5 4.0 - 5.6 % Estimated Average Glucose 111 mg/dL [facility] Comment: The ADA recommends reporting an estimated Average Glucose (eAG) with all Hemoglobin A1c results using the equation derived from a study of 507 normal and diabetic adults. Minority populations were underrepresented and children were not included. (Diabetes Care 2020; 43(S1): S66-S76). The eAG is not equivalent to a fasting glucose. Blood 12/10/2024 10:0 6 AM CDT 12/10/2024 1:34 PM CDT Result [facility] Yaw Gibbs MD LAB BLOOD ORDERABLES Fin al Result Performing Organization Address [facility] de Phone Number [facility] [place] [address] * Vitamin B12 (12/10/2024 10:06 AM CDT) Vitamin B12 437 230 - 1,250 pg/mL Blood 12/10/2024 10:0 6 AM CDT 12/10/2024 1:34 PM CDT us Yaw Gibbs MD LAB BLOOD ORDERABLES Fin al Result [facility] [address] [facility] Department [place] [address] * (ABNORMAL) Lipid panel (12/10/2024 10:06 AM CDT) Cholesterol 211(H) 30 - 199 mg/dL Comment: Interpretive Data [...] Data was last revised on 2018. Triglycerides 200(H) <=149 mg/dL [facility] Comment: Interpretive Data Ages < or = [...] Data was last revised on 2018. HDL 46 >=40 mg/dL [facility] Comment: Interpretive Data Ages < or = [...] was last revised on 2018. LDL, calculated 130(H) <=129 mg/dL [facility] Comment: Interpretive Data Ages < or = [...] 3. Jason Blue et al. DOMENICA Cardiol. 2019October 23;5(5):540-548. doi: [email or web address] Current Interpretive Data was last revised on 2024. Non-HDL Cholesterol 165 mg/dL [facility] Comment: Interpretive Data Ages < or = [...] was last revised on 2018. Chol/HDL ratio 5 [facility] Blood 12/10/2024 10:0 6 AM CDT 12/10/2024 1:34 PM CDT us Yaw Gibbs MD LAB BLOOD ORDERABLES Fin al Result [facility] [address] [facility] [place] [address] * (ABNORMAL) Comprehensive metabolic panel (12/10/2024 10:06 AM CDT) Sodium 144 135 - 145 mmol/L Potassium, pl 5.4(H) 3.3 - 4.9 mmol/L [facility] Chloride 106 97 - 110 mmol/L [facility] CO2 29 22 - 32 mmol/L [facility] Anion gap 9 2 - 15 mmol/L [facility] BUN 21 6 - 25 mg/dL [facility] Creatinine 1.47(H) 0.60 - 1.10 mg/dL [facility] Glucose See Comment 70 - 199 mg/dL [facility] Comment: Credited: Specimen too old Interpretive Data Fasting glucose >/= 126 mg/dl is diagnostic for diabetes. Fasting is defined as no caloric intake for at least 8 hours. Fasting glucose between 100 mg/dl to 125 mg/dl is diagnostic of prediabetes. In a patient with classic symptoms of hyperglycemia or hyperglycemic crisis, a random glucose >/= 200 mg/dl is diagnostic for diabetes. In the absence of unequivocal hyperglycemia, results should be confirmed by repeat testing. The classification and Diagnosis of Diabetes Diabetes Care 202; 46: S19-S40. Current interpretive data was last revised 2022. Calcium 9.9 8.5 - 10.3 mg/dL [facility] Bilirubin, total 0.2 0.1 - 1.2 mg/dL [facility] Protein, pl 7.6 6.5 - 8.5 g/dL [facility] Albumin 4.2 3.5 - 5.0 g/dL [facility] Alk phos 107 40 - 130 Units/L [facility] ALT 14 7 - 45 Units/L [facility] AST 24 10 - 45 Units/L [facility] Blood 12/10/2024 10:0 6 AM CDT 12/10/2024 1:34 PM CDT us Yaw Gibbs MD LAB BLOOD ORDERABLES Saturnino michaela Result - Final [facility] Department [place] [address] * Electrocardiogram Report (12/10/2024 9:16 AM CDT) Narrative Yaw Gibbs MD - 12/10/2024 9:16 AM CDT Yaw Gibbs MD 12/10/2024 9:16 AM Electrocardiogram Report Date/Time: 12/10/2024 9:16 AM Performed by: Yaw Gibbs MD Authorized by: Yaw Gibbs MD Compared with previous ECG: No Rhythm: sinus rhythm Rate: normal QRS axis: Normal Conduction: Normal ST Segment: Normal T Wave: Normal Clinical impression: normal ECG us Yaw Gibbs MD ECG ORDERABLES Final Re sult * CT Chest WO Contrast (12/09/2024 7:06 AM CDT) Anatomical Region Laterality Modality Body N/A Computed Tomogra phy 12/09/2024 8:33 AM CDT Impressions 12/09/2024 8:33 AM CDT Scattered small pulmonary nodules favored to be postinfectious/benign. Continued annual follow-up is recommended if patient is at high risk for lung cancer. Electronically signed by: Benito Chirinos M.D. Narrative 12/09/2024 8:33 AM CDT EXAMINATION: Computed tomography of the chest without intravenous contrast HISTORY: Lung nodules TECHNIQUE: Transaxial computed tomographic images of the chest were obtained without intravenous contrast according to the standard protocol. COMPARISON: CT performed on 05/20/2024 FINDINGS: Scattered bilateral small pulmonary nodules largest measuring up to 4 mm in the right upper lobe, with suggestion of a small peripheral calcification developing along its most anterior aspect. Minimal endobronchial secretions with mild bronchiectasis. Areas of focal linear and nodular scarring most pronounced in the right middle lobe and the dependent portions of the lung bases. No enlarged supraclavicular, mediastinal, hilar, or axillary lymph nodes. No pleural or significant pericardial effusions. Heart is of normal size. There are scattered coronary artery calcifications. Thoracic aorta is at upper limits of normal measuring 4 cm in diameter. Images through the upper abdomen demonstrate no acute process. Post cholecystectomy. Degenerative changes in the midthoracic spine. No suspicious bone lesions. Procedure Note Benito Chirinos MD - 12/09/2024 EXAMINATION: Computed tomography of the chest without intravenous contrast HISTORY: Lung nodules TECHNIQUE: Transaxial computed tomographic images of the chest were obtained without intravenous contrast according to the standard protocol. COMPARISON: CT performed on 05/20/2024 FINDINGS: Scattered bilateral small pulmonary nodules largest measuring up to 4 mm in the right upper lobe, with suggestion of a small peripheral calcification developing along its most anterior aspect. Minimal endobronchial secretions with mild bronchiectasis. Areas of focal linear and nodular scarring most pronounced in the right middle lobe and the dependent portions of the lung bases. No enlarged supraclavicular, mediastinal, hilar, or axillary lymph nodes. No pleural or significant pericardial effusions. Heart is of normal size. There are scattered coronary artery calcifications. Thoracic aorta is at upper limits of normal measuring 4 cm in diameter. Images through the upper abdomen demonstrate no acute process. Post cholecystectomy. Degenerative changes in the midthoracic spine. No suspicious bone lesions. IMPRESSION: Scattered small pulmonary nodules favored to be postinfectious/benign. Continued annual follow-up is recommended if patient is at high risk for lung cancer. Electronically signed by: Benito Chirinos M.D. Reese Myers MD IMG CT PROCEDURES Lulu l Result * Dexa TBS Axial Skeleton Bone Density 1 or more sites (10/01/2024 12:10 PM CDT) Anatomical Region Laterality Modality Wrist, Body N/A Radiographic Genny ging Narrative 10/01/2024 2:07 PM CDT Patient Name: Jodie Valentin Date of : 1960 Date of scan: 10/01/2024 Bone mineral density was performed on a HoloIGG Discovery Densitometer. Based on machine cross-calibration and precision studies the least significant changes of this densitometer is 0.024 g/cm2 at the spine, 0.020 g/cm2 at the total proximal femur, and 0.014g/cm2 at the forearm. HISTORY: This is a 64 y.o. postmenopausal female with a history of low bone mass, rheumatoid arthritis, and vitamin D deficiency. She reports that she has never smoked. She has never used smokeless tobacco. Currently on treatment with vitamin D, previously treated with anti-seizure medications, and current complaint of back pain and neck pain. INDICATIONS: Menopause status, history of prior right wrist fracture, and vitamin D deficiency. FINDINGS: BONE MINERAL DENSITY OF THE LUMBAR SPINE Bone Mineral Density (BMD) of the lumbar spine was measured from L1-L4 and the average density was calculated to be 1.275 gm/cm2. This corresponds to a T-score (standard deviations from the mean of young adults) of 2.1. When compared to the previous study of 08/31/2022 there has been a 0.032 gm/cm (2.6%) increase in bone density that is considered significant. BONE MINERAL DENSITY OF THE PROXIMAL FEMUR Bone Mineral Density (BMD) of the left hip total was found to be 0.866 gm/cm2. This corresponds to a T-score standard deviations from the mean of young adults of -0.6. Femoral neck is 0.637 gm/cm2 with a T-score (standard deviations from the mean of young adults) of -1.9. When compared to the previous study of 08/31/2022 there has been no significant changes in bone density. BONE MINERAL DENSITY OF THE FOREARM Bone Mineral density (BMD) of the left proximal 1/3 of the radius measures 0.657 gm/cm2. This corresponds to a T-score (standard deviations from the mean of young adults) of -0.6. There is no previous study available for comparison. A forearm bone density study was performed in addition to the routine study due to severe scoliosis. SUMMARY: Bone mineral density shows evidence of low bone mass at the proximal femur and moderately increased fracture risk (Osteopenia). There has been a significant increase in bone density since previous measurement. The lumbar spine Trabecular Bone Score is 1.278 which suggests partially degraded bone microarchitecture compared [...] bone mineral density scan were prepared by Indira Lamb(Mickie) SALLY who is accredited by the International Society of Clinical Densitometry. The overall patient assessment and scan interpretation were performed by Dr. Sacha Mohan who is certified by the International Society of Clinical Densitometry. [id number] us Sacha Mohan MD IMG DXA PROCEDURES Final Resul t * Screening Mammogram Bilateral W [place] (05/27/2024 8:19 AM SLIP MIXER) Anatomical Region Laterality Modality Breast Bilateral Mammography Narrative 05/28/2024 12:19 PM SLIP MIXER Mammogram Technique: Bilateral Digital Breast Tomosynthesis, Bilateral C-view 2D Screening mammogram. Views obtained: bilateral craniocaudal and bilateral mediolateral oblique. Computer Aided Detection was performed. Mammogram Findings: The present examination has been compared to prior imaging studies performed at [facility] on 07/25/2018, 11/01/2021 and 05/16/2023. There are [...] compared to prior imaging studies performed at [facility] on 07/25/2018, 11/01/2021 and 05/16/2023. There are scattered areas of fibroglandular density. There is no suspicious abnormality in either breast. Impression: There is no mammographic evidence of malignancy. Annual screening mammography is recommended. OVERALL FINAL ASSESSMENT: BI-RADS CATEGORY 1: Negative. Self Screening Mammogram IMG MAMMO PROCEDURES Fi nal Result * Hepatitis C antibody Blood Blood, Venous (12/13/2023 12:54 PM CDT) Pathologist [facility] Hep C Ab Nonreactive Nonreactive Comment: Interpretive [...] data was last revised on 2019. Blood Venous blood specimen / Unknown 12/13/2023 12:54 PM CDT 12/13/2023 9:10 PM CDT Narrative URIAH CARSON - 12/13/2023 10:04 PM CDT Fax results to Dr Julia Tidwell [phone] Julia Tidwell NP LAB MICROBIOLOGY - GENERAL ORDERABLES Edited Result - Final [facility] [id number] Department [place] [address] * COLONOSCOPY (07/26/2022) Pathologist [facility] Colonoscopy Abnormal Historical Provider HEALTH MAINTENANCE Final Result * PAP SMEAR WITH HPV (06/25/2016) Pathologist [facility] Pap smear Normal Historical Provider HEALTH MAINTENANCE Final Result from Last 3 Months or Most Recently Relevant to Health Maintenance Insurance [facility] T MEDICARE [facility] MEDICARE AETNA MEDICARE Care Teams Manager Privacy Relationship Specialty Start Date End Date Yaw Gibbs MD [address] [place] [address] DR [address] [address] PCP - General Internal Medicine 03/23/20 Lisa Dickerson DO Surgeon Orthopedic Surgery 07/25/18 [place] [address] [place] [address] Surgeon Orthopedic Surgery 07/25/18 [place] [address] [place] [address] Referring Physician Rheumatology 07/25/18 [place] [address] [place] [address] Surgeon Orthopedic Surgery 07/25/18 Trav Vaughn MD [address] [place] [address] Referring Physician Ophthalmology 07/25/18 Calixto Sweet MD [address] [place], [place] [address] [place] [address] Consulting Physician Orthopedic Surgery 08/04/20 Nuzhat Saunders MD [address] [place], [place] [address]GLORIA WALKER [address] [place] [address] Consulting Physician Dermatology 08/04/20 Karol Mills MD [address] [place], [place] [address] [place] [address] Consulting Physician Obstetrics and Gynecology 08/05/20 Socorro Gamboa, DPT [address] [facility] [address] [place] [address] Physical Therapist Physical Therapy 10/05/22 Oliver Diamond, APOORVA Massage Therapy 08/21/24
--- OUTSIDE RECORDS SUMMARY | 2025-02-19 15:23 | XMS_ITS | Encounter Summary ---
Author Organization [facility] Address [address] [place] [address] Care Team Providers Care Leather Colorer Name Role Phone Adriano Ralph MD, Hernandez Morrow Primary Care Provider Christine vailable Encounter Details Date Type Department Care Team (Latest Contact Info) Description 11/28/2004 Outpatient Historical HIS [facility] KELSIE Oh Jr., Hernandez Morrow MD NO ADDRESS ON FILE ENDOCRINE DISORDER NOS (Primary Dx) Social History Tobacco Use Types Packs/Day Years Used Date Smoking Tobacco: Never Assessed Comments Unknown Sex and Gender Information Value Date Recorded Sex Assigned at Not on file Legal Sex Female 2:45 AM PACKAGING SPECIALIST Gender Identity Not on file Sexual Orientation Not on file documented as of this encounter Plan of Treatment Not on file documented as of this encounter Procedures Procedure Name Priority Date/Time Associated Diagnosis Comments ESTRADIOL Routine 11/28/2004 11:01 AM CDT TSH Routine 11/28/2004 11:01 AM CDT LUTEINIZING HORMONE Routine 11/28/2004 1 1:01 AM CDT FSH Routine 11/28/2004 11:01 AM CDT documented in this encounter Results * LUTEINIZING HORMONE (11/28/2004 11:01 AM CDT) LUTEINIZING HORMONE 37.7 mIU/mL INTERFACE SYSTEM Comment: Luteinizing Hormone Reference Range: Female: Normally Menstruating Female Follicular Phase 2.4 - 12.6 mIU/mL Ovulation Phase 14.0 - 95.6 mIU/mL Luteal Phase 1.0 - 11.4 mIU/mL Post Menopausal 7.7 - 58.5 mIU/mL Children less than 1 year old: Call laboratory for reference range. 11/28/2004 11:0 1 AM CDT Hernandez Oh Jr., MD CHEMISTRY ORDERABLES Final Result Performing Organization Address [facility] Phone Number INTERFACE SYSTEM Refer to clinic/hospital department * TSH (11/28/2004 11:01 AM CDT) TSH 2.09 0.27 - 4.20 uU/mL INTERFACE SYSTEM 11/28/2004 11:0 1 AM CDT Hernandez Oh Jr., MD CHEMISTRY ORDERABLES Final Result Performing Organization Address [facility] Phone Number INTERFACE SYSTEM Refer to clinic/hospital department * FSH (11/28/2004 11:01 AM CDT) FSH 53.8 mIU/mL INTERFACE SYSTEM Comment: FSH Reference Range: Female: Normally Menstruating Female Follicular Phase 3.5 - 12.5 mIU/mL Ovulation Phase 4.7 - 21.5 mIU/mL Luteal Phase 1.7 - 7.7 mIU/mL Post Menopausal 25.8 - 134.8 mIU/mL Children less than 1 year old: Call laboratory for reference range. 11/28/2004 11:0 1 AM CDT Hernandez Oh Jr., MD CHEMISTRY ORDERABLES Final Result Performing Organization Address [facility] Phone Number INTERFACE SYSTEM Refer to clinic/hospital department * ESTRADIOL (11/28/2004 11:01 AM CDT) ESTRADIOL 16 pg/mL INTERFACE SYSTEM Comment: Estradiol Reference Range: Female: Normally Menstruating Female Follicular Phase: 13 - 166 pg/ml Ovulation Phase: 86 - 498 pg/mL Luteal Phase: 44 - 211 pg/mL Post Menopausal: <5 - 55 pg/mL 1st Trimester: 215 - >4300 pg/mL Children less than 1 year old: No Reference Range established. 11/28/2004 11:0 1 AM CDT us Hernandez Oh Jr., MD CHEMISTRY ORDERABLES Final Result INTERFACE SYSTEM Refer to clinic/hospital department documented in this encounter Visit Diagnoses Diagnosis Unspecified endocrine disorder- Primary documented in this encounter Care Teams Leather Colorer Relationship Specialty Start Date End Date Hernandez Oh Jr., MD PCP - General 04/05/09 06/19/12 documented as of this encounter
--- OUTSIDE RECORDS SUMMARY | 2025-02-19 15:23 | XMS_ITS | Clinical Summary ---
Author Organization [facility] Address [address] [place] [address] Phone Care Team Providers Care Retail Merchandising Coordinator Name Role Phone Unavailable Primary Care Provider Unavailabl e Family History Medical History Relation Name Comments Breast Cancer Mother age 44 Ovarian Cancer Neg Hx Relation Name Status Comments Mother Alive Social History Tobacco Use Types Packs/Day Years Used Date Smoking Tobacco: Never Assessed Comments Unknown Sex and Gender Information Value Date Recorded Sex Assigned at Not on file Legal Sex Female 2:45 AM VENDOR SPECIALIST Gender Identity Not on file Sexual Orientation Not on file Occupation Industry Job Start Date Job End Date Not on file Not on file Not on file Not on file Plan of Treatment Health Maintenance Due Date Last Done Comments DTAP/TDAP/TD VACCINES (1 - Tdap) 1977 COLORECTAL SCREENING 2003 Colorectal Cancer Screening 2003 FIT-DNA Q 3 years 2003 FIT/FOBT Q 1 year 2003 Flex Sig/CT Colonography Q 5 years 2003 PNEUMOCOCCAL VACCINE 50+ YEA RS (1 of 1 - PCV) 2008 ZOSTER VACCINE (1 of 2) 2008 BREAST CANCER SCREENING 06/20/2013 06/20/20 12, 05/17/2011, 04/05/2009, Additional history exists OSTEOPOROSIS SCREENING 2023 INFLUENZA VACCINE (#1) 2025 RSV VACCINE (60+ or ) (1 - 1-dose 75+ series) 2033 Procedures Procedure Name Priority Date/Time Associated Diagnosis Comments MAMMO SCREEN BILAT W OR WO CAD Routine 06/20/2012 8:30 AM VENDOR SPECIALIST Other screening mammogram from Last 3 Months or Most Recently Relevant to Health Maintenance Results * MAMMO DIGITAL SCREEN BILAT (06/20/2012 8:30 AM VENDOR SPECIALIST) Anatomical Region Laterality Modality Breast Bilateral Mammography 06/20/2012 8:29 AM VENDOR SPECIALIST Narrative 06/20/2012 12:14 PM VENDOR SPECIALIST BILATERAL FULL FIELD DIGITAL SCREENING MAMMOGRAM WITH CAD, 06/20/2012 HISTORY: Routine Screening. TECHNIQUE: Full field digital craniocaudal and mediolateral oblique projections of both breasts were obtained. Computer aided diagnosis was performed. COMPARISON: 05/17/2011 and older. BREAST PARENCHYMAL COMPOSITION: Scattered fibroglandular densities. FINDINGS: No suspicious mass, suspicious microcalcifications, or architectural distortion is identified in either breast. Since the prior study, there has been no significant interval change. Computer aided detection was used in the interpretation of this examination. OVERALL ASSESSMENT: BI-RADS category 1: Negative. RECOMMENDATION: Annual mammography is recommended. Procedure Note Jaqueline Jerry MD - 06/20/2012 BILATERAL FULL FIELD DIGITAL SCREENING MAMMOGRAM WITH CAD, 06/20/2012 HISTORY: Routine Screening. TECHNIQUE: Full field digital craniocaudal and mediolateral oblique projections of both breasts were obtained. Computer aided diagnosis was performed. COMPARISON: 05/17/2011 and older. BREAST PARENCHYMAL COMPOSITION: Scattered fibroglandular densities. FINDINGS: No suspicious mass, suspicious microcalcifications, or architectural distortion is identified in either breast. Since the prior study, there has been no significant interval change. Computer aided detection was used in the interpretation of this examination. OVERALL ASSESSMENT: BI-RADS category 1: Negative. RECOMMENDATION: Annual mammography is recommended. us Hernandez Oh Jr., MD MAMMO ORDERABLES Final Res ult from Last 3 Months or Most Recently Relevant to Health Maintenance Insurance [employer] PPO [id number] BS BLUE ACCESS/TRUE BLUE PPO
--- OUTSIDE RECORDS SUMMARY | 2025-02-19 15:23 | XMS_ITS | Encounter Summary ---
Author Organization [facility] Address [address] [place] [address] Care Team Providers Care Typewriter Tester Name Role Phone Adriano Ralph MD, Hernandez Morrow Primary Care Provider Christine vailable Encounter Details Date Type Department Care Team (Latest Contact Info) Description 04/06/2003 Outpatient Historical HIS [facility] Hernandez Oh Jr., MD NO ADDRESS ON FILE SCREENING MAMM-MAILG NEOPL-OTHER (Primary Dx) Social History Tobacco Use Types Packs/Day Years Used Date Smoking Tobacco: Never Assessed Comments Unknown Sex and Gender Information Value Date Recorded Sex Assigned at Not on file Legal Sex Female 2:45 AM ELECTRONIC COILS SUPERVISOR Gender Identity Not on file Sexual Orientation Not on file documented as of this encounter Plan of Treatment Not on file documented as of this encounter Visit Diagnoses Diagnosis Other screening mammogram- Primary documented in this encounter Care Teams Typewriter Tester Relationship Specialty Start Date End Date Hernandez Oh Jr., MD PCP - General 04/05/09 06/19/12 documented as of this encounter
--- OUTSIDE RECORDS SUMMARY | 2025-02-19 15:23 | XMS_ITS | Encounter Summary ---
Author Organization [facility] Address [address] [place] [address] Care Team Providers Care Screener And Blender Name Role Phone Lisa Dickerson DO Unavailable [phone] Rony Sharp MD Unavailable Walter Ralph MD, Sheldon Tompkins Unavailable + Akash Lagos MD Unavailable Trav Vaughn MD Unavailable Yaw Gibbs MD Primary Care Provider + Calixto Sweet MD Unavailable Nuzhat Saunders MD Unavailable Karol Mills MD Unavailable Socorro Gamboa DPT Unavailab le Oliver Diamond LMT Unavailable Unavaila ble Encounter Details Date Type Department Care Team (Late st Contact Info) Description 11/03/2022 Telephone [facility] [address] [place] [address] Richards, Dilan, RT Social History Tobacco Use Types Packs/Day [...] on file Legal Sex Female 1:02 AM CLAY MINER Gender Identity Female 10/10/2023 1:18 PM CDT [...] Care Plan Chronic Care Management No Zahra Olmstead RN Note: Problem: Chronic Pain Goals: 1. Minimize further functional decline 2. Maximize quality of life 3. Control pain Strategies: - Activity/exercise program recommendation - Conservative stepwise pain medicine strategy with multi-disciplinary approach - Recommend healthy lifestyle strategies and compensatory methods as needed documented as of this encounter Visit Diagnoses Not on filedocumented in this encounter Care Teams Screener And Blender Relationship Specialty Start Date End Date Yaw Gibbs MD [address] [place] [address] [address] [place] [address] PCP - General Internal Medicine 03/23/20 Lisa Dickerson DO Surgeon Orthopedic Surgery 07/25/18 [place] [address] [place] [address] Surgeon Orthopedic Surgery 07/25/18 [place] [address] [place] [address] Referring Physician Rheumatology 07/25/18 [place] [address] [place] [address] Surgeon Orthopedic Surgery 07/25/18 Trav Vaughn MD [address] [place] [address] Referring Physician Ophthalmology 07/25/18 Calixto Sweet MD [address] [place], [place] [address]IA WALKER [address] [place] [address] Consulting Physician Orthopedic Surgery 08/04/20 Nuzhat Saunders MD [address] [place], [place] [address] [place] [address] Consulting Physician Dermatology 08/04/20 Karol Mills MD [address] [place], [place] [address]ER [address] [place] [address] Consulting Physician Obstetrics and Gynecology 08/05/20 Socorro Gamboa DPT [address] [facility] [address] [place] [address] Physical Therapist Physical Therapy 10/05/22 Oliver Diamond, APOORVA Massage Therapy 08/21/24 documented as of this encounter
--- OUTSIDE RECORDS SUMMARY | 2025-02-19 15:23 | XMS_ITS | Encounter Summary ---
Author Organization [facility] Address [address] [place] [address] Care Team Providers Care Audio/Visual Operator Name Role Phone Adriano Ralph MD, Hernandez Morrow Primary Care Provider Christine vailable Encounter Details Date Type Department Care Team (Latest Contact Info) Description 04/15/2004 Outpatient Historical HIS [facility] Hernandez Oh Jr., MD NO ADDRESS ON FILE SCREENING MAMM-MAILG NEOPL-OTHER (Primary Dx) Social History Tobacco Use Types Packs/Day Years Used Date Smoking Tobacco: Never Assessed Comments Unknown Sex and Gender Information Value Date Recorded Sex Assigned at Not on file Legal Sex Female 2:45 AM PUBLIC HOUSING INTERVIEWER Gender Identity Not on file Sexual Orientation Not on file documented as of this encounter Plan of Treatment Not on file documented as of this encounter Visit Diagnoses Diagnosis Other screening mammogram- Primary documented in this encounter Care Teams Audio/Visual Operator Relationship Specialty Start Date End Date Hernandez Oh Jr., MD PCP - General 04/05/09 06/19/12 documented as of this encounter
--- OUTSIDE RECORDS SUMMARY | 2025-02-19 15:23 | XMS_ITS | Encounter Summary ---
Author Organization [facility] Address [address] [place] [address] Care Team Providers Care Stenotype Machine Operator Name Role Phone Adriano Ralph MD, Hernandez Morrow Primary Care Provider Christine vailable Encounter Details Date Type Department Care Team (Latest Contact Info) Description 01/28/2008 Outpatient Historical [facility] Hernandez Sloan Jr., MD NO ADDRESS ON FILE Other Screening Mammogram; Breast Screening, Unspecified Social History Tobacco Use Types Packs/Day Years Used Date Smoking Tobacco: Never Assessed Comments Unknown Sex and Gender Information Value Date Recorded Sex Assigned at Not on file Legal Sex Female 2:45 AM FRAME BANDER Gender Identity Not on file Sexual Orientation Not on file documented as of this encounter Plan of Treatment Not on file documented as of this encounter Procedures Procedure Name Priority Date/Time Associated Diagnosis Comments MAMMO SCREEN BILAT W OR WO CAD Routine 01/28/2008 9:16 AM CDT documented in this encounter Results * MAMMO DIGITAL SCREEN BILAT (01/28/2008 9:16 AM CDT) Anatomical Region Laterality Modality Breast Bilateral Other 01/28/2008 9:16 AM CDT Narrative 01/28/2008 4:51 PM CDT [id number] [place], [place] [id number] Admit Date: 01/28/2008 SANDRA SHASTA Sex: F Admit Prov: HERNANDEZ SLOAN Date: 1960 Primary Care Prov: TONE MARQUEZ CMRN: [id number] [id number] [facility] Ordering Prov: HERNANDEZ SLOAN Accession Number: [id number] Interpretation DIGITAL SCREENING MAMMOGRAM WITH COMPUTER-ASSISTED DIAGNOSIS Findings: The breasts were imaged with digital mammographic technique. The breasts are almost entirely fat. No significant mass, malignant calcification or architectural distortion is noted. The CAD system does not highlight any suspicious areas. Summary: No mammographic evidence of malignancy. There has been no significant change from prior study of 11/28. Recommendations: Bilateral yearly screening mammogram is recommended. Assessment BIRADS: 1-Negative Recommendation: Normal interval follow-up Dictated by: CATIE MAR Electronically signed by: CATIE MAR 01/28/2008 16:51 Transcribed: 01/28/2008 16:51 CXZ Procedure Note Catie Mar - 01/28/[address] [address] Admit Date: 01/28/2008 SHASTA VALENTIN Sex: F Admit Prov: HERNANDEZ SLOAN Date: 1960 Primary Care Prov: TONE MARQUEZ CMRN: [id number] [facility] [id number] [facility] Ordering Prov: HERNANDEZ SLOAN Odalys Interpretation DIGITAL SCREENING MAMMOGRAM WITH COMPUTER-ASSISTED DIAGNOSIS Findings: The breasts were imaged with digital mammographictechnique. The breasts are almost entirely fat. No significant mass, malignant calcification or architectural distortion is noted. The CAD system does not highlight any suspicious areas. Summary: No mammographic evidence of malignancy. There has been no significant change from prior study of 11/28. Recommendations: Bilateral yearly screening mammogram is recommended. Assessment BIRADS: 1-Negative Recommendation: Normal interval follow-up Dictated by: CATIE MAR Electronically signed by: CATIE MAR 01/28/2008 16:51 Transcribed: 01/28/2008 16:51 CXZ Hernandez Sloan Jr., MD MAMMO ORDERABLES Final Res ult documented in this encounter Visit Diagnoses Diagnosis Other screening mammogram Breast screening, unspecified documented in this encounter Care Teams Stenotype Machine Operator Relationship Specialty Start Date End Date Hernandez Sloan Jr., MD PCP - General 04/05/09 06/19/12 documented as of this encounter
--- OUTSIDE RECORDS SUMMARY | 2025-02-19 15:23 | XMS_ITS | Encounter Summary ---
Author Organization [facility] Address [address] [place] [address] Care Team Providers Care Labor Expediter Name Role Phone Adriano Ralph MD, Hernandez Morrow Primary Care Provider Christine vailable Encounter Details Date Type Department Care Team (Late st Contact Info) Description 12/18/2005 Outpatient Historical [facility] Hernandez Oh Jr., MD NO ADDRESS ON FILE Social History Tobacco Use Types Packs/Day Years Used Date Smoking Tobacco: Never Assessed Comments Unknown Sex and Gender Information Value Date Recorded Sex Assigned at Not on file Legal Sex Female 2:45 AM DIRECTOR OUTCOMES Gender Identity Not on file Sexual Orientation Not on file documented as of this encounter Plan of Treatment Not on file documented as of this encounter Visit Diagnoses Not on filedocumented in this encounter Care Teams Labor Expediter Relationship Specialty Start Date End Date Hernandez Oh Jr., MD PCP - General 04/05/09 06/19/12 documented as of this encounter
== END 2025-02-19 15:18 | disposition home or self-care (01) ==
PROVIDERS: PCP Internal Medicine; Visit Provider Orthopaedic Surgery
DX: M19.011 Primary osteoarthritis, right shoulder (principal); M62.58 Muscle wasting and atrophy, not elsewhere classified, other site; M85.611 Other cyst of bone, right shoulder
CPT/HCPCS: 73200

== ENCOUNTER 2025-03-13 10:59 | Outpatient (CLI) | payer MEDICARE, SELFPAY ==
--- OUTSIDE RECORDS SUMMARY | 2025-03-13 11:06 | XMS_ITS | Clinical Summary ---
Author Organization [facility] Address [address] [facility] [place] [address] Care Team Providers Care Hot Dimpling Machine Operator Name Role Phone Lisa Dickerson DO Unavailable [phone] Rony Sharp MD Unavailable [phone] Walter Ralph MD, Sheldon Tompkins Unavailable + Akash Lagos MD Unavailable Trav Vaughn MD Unavailable [phone] Yaw Gibbs MD Primary Care Provider + [...] Duloxetine Hcl Other (See comments) Low 06/10/2021 Amitriptyline Other (See comments) 03/03/2025 Did not tolerate Gabapentin Other (See comments) 03/03/2025 Does not work Nsaids (Non-Steroidal Anti-Inflammatory Drug) Other (See comments) Low 07/14/2021 Colitis/CKD Medications fluticasone (FLONASE) 50 mcg/actuation nasal spray daily. 6 Active cholecalcifero l (VITAMIN D-3) 2,000 unit tablet 1 po QD 2 Active CANNABIDIOL, CBD, EXTRACT ORAL Take by mouth Active turmeric root extract 500 mg capsule Take 500 mcg by mouth daily Active estradioL (Estrace) 0.01 % (0.1 mg/gram) vaginal creamIndicatio ns:Vaginal atrophy Apply 1/ applicator (1g) to the vagina 2-3 times per week (such as Sunday//Sunday) 42.5 g 3 3 Active acetaminophen ER (TYLENOL) 650 mg 8 hr tabletIndicati ons:Pain Take 2 tablets (1,300 mg total) by mouth 2 (two) times a day Active leflunomide (ARAVA) 20 mg tabletIndicati ons:Rheumatoid Arthritis Take 1 tablet (20 mg total) by mouth daily 90 tablet 1 4 Active atorvastatin (LIPITOR) 10 mg tablet Take 1 tablet (10 mg total) by mouth daily 90 tablet 3 4 05/14/20 25 Active omeprazole (PriLOSEC) 20 mg capsule Take 1 capsule (20 mg total) by mouth daily 90 capsule 3 5 Active sertraline (ZOLOFT) 100 mg tabletIndicati ons:Mild episode of recurrent major depressive disorder Take 1.5 tablets (150 mg total) by mouth daily 135 tablet 3 5 Active albuterol HFA (PROVENTIL HFA,VENTOLIN HFA,PROAIR HFA) 90 mcg/actuation inhalerIndicat ions:Bronchosp asm Prevention Inhale 2 puffs every 6 (six) hours as needed for wheezing 1 each 3 5 06/18/20 26 Active lidocaine (LIDODERM) 5 %Indications:L ower Back Pain Place 1 patch on the skin daily for 12 hours 30 patch 5 5 Active loratadine (CLARITIN) 10 mg tablet Take 1 tablet (10 mg total) by mouth daily Active HYDROcodone-ac etaminophen (NORCO) 5-325 mg per tabletIndicati ons:Pain Take 1 tablet by mouth every 8 (eight) hours as needed for pain 30 tablet 5 Active HYDROcodone-ac etaminophen (NORCO) 5-325 mg per tabletIndicati ons:Pain Take 1 tablet by mouth every 8 (eight) hours as needed for pain 30 tablet 4 03/03/20 Discontinu ed(Reorder ) ondansetron (ZOFRAN) 4 mg tabletIndicati ons:Nausea and Vomiting Take 1 tablet (4 mg total) by mouth every 12 (twelve) hours as needed for nausea or vomiting 20 tablet 03/03/20 Discontinu ed(Therapy completed) triamcinolone (KENALOG) 0.1 % creamIndicatio ns:Skin Inflammation,s kin rash Apply to affected area 1-2 times daily as needed for rash for up to 7 days. Do not apply to face, armpits or groin 80 g 03/03/20 Discontinu ed(Therapy completed) multivit with minerals/lutei n (MULTIVITAMIN 50 PLUS ORAL) Take 1 tablet/capsule by mouth relay assembler before breakfast 03/03/20 Discontinu ed(Therapy completed) Active Problems Patient Care Coordination No te [...] surgical evaluation. Problem Noted Date Diagnosed Date Pulmonary nodules 12/10/2024 Mild emphysema 12/10/2024 Ureteral stricture 10/03/2024 Spinal stenosis, lumbar kobe on, with neurogenic claudication 08/21/2024 Ascending aorta dilation 08/10/2024 Situational depression 05/06/2024 Recurrent major depressive disorder, in remissio n 10/18/2023 Snoring 10/18/2023 Chronic midline thoracic back pain 12/27/2022 Shingles 11/23/2022 Stage 3a chronic kidney disease 09/27/2022 Assessment & Plan (02/13/2024 12:56 PM CDT): Kidney function stable Recommending follow-up with pipe changer to discuss further treatment of hypertension Internal hemorrhoids 09/27/2022 Seasonal allergies 09/27/2022 Varicose vein of leg 09/27/2022 Osteopenia of neck of femur 08/31/2022 Overview (08/31/2022): T-score femoral neck 08/2022= -1.5 Frax is 19/1 Adjustment for TBS 19/1.1 Assessment & Plan (08/31/2022 10:15 AM WELDING MACHINE OPERATOR ELECTRON BEAM): At this point we will observe and [...] medications Assessment & Plan (04/30/2024 1:34 PM WELDING MACHINE OPERATOR ELECTRON BEAM): BP elevated today She is angry and crying. Also has severe pain today Assessment & Plan (03/14/2024 3:36 PM CDT): Off clonidine per pipe changer and BP has been stable at home Assessment & Plan (02/13/2024 12:49 PM CDT): BP labile at home Noting unwanted side effects from clonidine Discussed management with PCP, recommending follow up with Community Health Planning Director due to kidney disease Resolved Problems Problem Noted Date Diagnosed Date Resolved Date Preoperative clearance 02/10/202503/03 Assessment & Plan (02/10/2025 9:03 AM CDT): [...] OV note(s) forwarded to surgeon as requested BMI 33.0-33.9,adult 09/17/2024 12/11/19 Class 2 obesity with body ma ss [...] breath 06/04/2024 12/11/19 25 H/O: HTN (hypertension) 08/10/202309/24 Acute cystitis with hematuria 08/10/2023 10/18/2023 Mild [...] Encounters Date Type Department Care Team Description 03/09/2025 8:20 AM CDT Office Visit [facility] Medicine Orthopaedic Surgery [address] [place] [address] [address] [place] [address] Erin Correia MD Arrived 03/04/2025 Telephone [facility] Orthopaedic Surgery [address] [place] [address] Office [facility] [address] [place] [address] Cely Glover RN 03/04/2025 Telephone [facility] Orthopaedic Surgery [address] [facility] [address] [place] [address] Cely Glover RN 03/03/2025 12:45 PM CDT Office Visit [address] [address] Yaw Gibbs MD Medicare annual wellness visit, initial (Primary Dx); Atherosclerosis of aorta; Chronic midline low back pain without sciatica; Chronic pain syndrome; Eosinophilic esophagitis; Medical marijuana use; Mild emphysema (HCC); Osteopenia of neck of left femur; Prediabetes; Recurrent major depressive disorder, in remission; Rheumatoid arthritis involving multiple sites with positive rheumatoid factor (HCC); Other irritable bowel syndrome; Stage 3a chronic kidney disease (HCC); Vitamin D deficiency; Vaccine counseling; Easy bruisability 02/12/[address] [address] Yaw Gibbs MD 02/12/[address] [address] Yaw Gibbs MD Surgical Clearance (Dr. Ospina) 02/10/2025 9:40 AM CDT Office Visit [facility] Orthopaedic Surgery [address] [place] [address] [address] [place] [phone] Erin Correia MD Chronic pain syndrome (Primary Dx); Chronic bilateral low back pain without sciatica 02/10/2025 8:30 AM CDT Office Visit [address] [phone] Julianna Zambrano DNP Preoperative clearance (Primary Dx); Chronic right shoulder pain; Essential hypertension 02/06/2025 Results Follow-Up [address] [address] Yaw Gibbs MD Renal function panel, eGFR 02/05/2025 2:25 PM CDT Lab [address] [address] Stage 3a chronic kidney disease (HCC) 01/22/2025 Telephone [facility] Infectious Diseases [address] [facility] [address] [place] [address] Kee Colón RPh Travel Vaccine Administered 01/13/[address] [place] [address] Sally Guzman Appointment 01/12/[address] [place] [address] Yaw Gibbs MD Request Medical Clearance 01/08/2025 10:30 AM CDT Clinical Support [facility] Orthopaedic Surgery [address] [place] [address] 4 [address] [place] [phone] Claudia Peace NP BMI 33.0-33.9,adult (Primary Dx); Prediabetes [R73.03] 01/02/2025 Documentation [facility] Nephrology [address] [place] [address] 5th [place] [address] [place] [phone] Terrance Harris MD Nephrology Clearance 12/23/[address] [place] [address] Yaw Gibbs MD Med Count Request (Atorvastatin) 12/22/2024 8:20 AM CDT Office Visit [facility] Orthopaedic Surgery [address] [place] [address] 4 [address] [place] [phone] Erin Correia MD Chronic bilateral low back pain without sciatica (Primary Dx); Follow-up exam; Chronic pain syndrome 12/11/2024 10:30 AM CDT Clinical Support [facility] Orthopaedic Surgery [address] [place] [address] 4 [address] [place] [phone] Claudia Peace NP BMI 33.0-33.9,adult (Primary Dx); Chronic pain syndrome 12/11/2024 9:40 AM CDT Office Visit [facility] Infectious Diseases [address] [place] [phone] CerroLeandra De La Fuente, ANDERSON Travel advice encounter 12/11/2024 Results Follow-Up [place] [address] [facility] [address] [place] [phone] Yaw Gibbs MD Vitamin B12, Thyroid Function [place], Lipid panel, Additional followed-up results: 3 from Last 3 Months Immunizations Immunization Administration Dates Next Due COVID-19 MRNA (MODERNA) .5 M L (50 MCG) VACCINE (12 YEARS AND UP) 02/23/2023 COVID-19 mRNA (PFIZER) 0.3 m L (30 mcg) vaccine (12 years and up) 02/29/2024 Hep A, Adult 09/04/2017,10/06/2016 Hep A, Unspecified 09/04/2017,10/06/2016 Influenza LAIV (Nasal) 03/28/2012 Influenza, Quadrivalent, Hig h Dose, Preservative Free, Intrr 03/25/2023 Influenza, Quadrivalent, Spl it, Preservative Free, Intramuscular 04/17/2023,04/04/2022,03/12/2020,03/06 Influenza, Trivalent, High D ose, Split, Preservative Free, Intramuscular 02/18/2025,02/29/2024 Influenza, Trivalent, IM (MDV) ,02/17/2021,05/06/2015,04/16 Influenza, Trivalent, Preser vative Free, Intramuscular 05/05/2015 Influenza, Trivalent, Split, Preservative Free, Intradermal 03/02/2016 Influenza, Unspecified 03/25/2019,03/25/2018 Jeffrey (J&J) SARS-CoV-2 Vaccination 08/27/2020, 08/23/2020 Moderna SARS-CoV-2 Monovalen t Vaccination (12+ YRS) 06/25/2021,06/20/2021 Pneumococcal Polysaccharide PPV23 08/05/2020 RSV Vaccine, Pref, Recombina nt, Subunit, Adjuvanted, PF, IM (Arexvy) 04/25/2023 Tdap 09/27/2021,06/13/2012 Typhoid Inactivated 01/22/2025 Typhoid Live 07/25/2018,09/23/2016 ZOSTER LIVE 05/05/2015 ZOSTER Recombinant 04/17/2023,02/23/2023, 023 Surgical History Surgery Date Site/Laterality Comments SECTION [...] Efren Mental illness Maternal Grandmother Zulema Efren Uterine cancer Maternal Grandmother Zulema Efren Arthritis Mother Felicitas Long Breast cancer Mother Felicitas Long Osteoporosis Mother Felicitas Long Rheum arthritis Mother Felicitas Long Skin cancer Mother Felicitas Long Memory loss Paternal Grandmother Amanda Long Uterine cancer Paternal Grandmother Amanda Long Arthritis Sister 1 Daja Degroot Diabetes Sister 1 Daja Degroot Rheum arthritis Sister 2 Arthritis Sister 3 Mercedez Dhruv Diabetes Sister 4 Daja Alcohol abuse Son Taqueria Valentin Depression Son Taqueria Valentin Colon cancer Neg Hx Prostate cancer Neg Hx Relation Name Status Comments Brother Eliel Fernandez Father Dom long Maternal Grandmother Zulema Efren Mother Felicitas Long Paternal Grandmother Amanda Long Sister 1 Daja Degroot Sister 2 Sister 3 Mercedez Bartlett Sister 4 Daja Alive Son Taqueria Valentin [...] points, staff should administer the PHQ-9) 0 03/03/2025 Personal Safety Answer Date Recorded Have you ever been in or are you currently in a harmful physical or emotional relationship or is someone making you feel afraid or unsafe? Denies 11/13/2023 Comments No Sex and Gender Information Value Date Recorded Sex Assigned at Not on file Legal Sex Female 1:02 AM WELDING MACHINE OPERATOR ELECTRON BEAM Gender Identity Female 10/10/2023 1:18 PM CDT [...] Sign Reading Time Taken Comments Blood Pressure 116/70 03/03/2025 12:45 PM CDT Pulse 98 03/03/2025 12:45 PM CDT Temperature 37.2 C (98.9 F) 03/03/2025 12:45 PM CDT Respiratory Rate 20 08/28/2024 8:38 AM WELDING MACHINE OPERATOR ELECTRON BEAM Oxygen Saturation 97% 03/03/2025 12:45 PM CDT Inhaled Oxygen Concentration - - Weight 85 kg (187 lb 8 oz) 03/03/2025 12:45 PM C DT Height 160 cm (5' 3) 03/03/2025 12:45 PM CDT Body Mass Index 33.21 03/03/2025 12:45 PM CDT Plan of Treatment Health Maintenance Due Date Last Done Comments Pneumococcal vaccine 65+ (2 of 2 - PCV) 08/05/2021 08/05/2020 Covid-19 Vaccine (2023-2 5 season) 2025 02/29/2024, 02/23/2023, 02/09/2023, Additional history exists Breast Cancer Screening-Mammogram 05/27/2025 05/27/2024, 05/16/2023, 11/01/2021, Additional history exists Colon Cancer Screening-Colonoscopy 07/26/2025 07/26/2022, 07/12/2021, 09/06/2012 Depression Screening 03/03/2026 03/03/2025, 10/18/2023, 09/27/2022, Additional history exists Fall Risk Assessment 03/03/2026 03/03/2025, 11/13/2023, 10/18/2023 Well Visit 65+ 03/03/2026 03/03/2025, 02/2025, 10/18/2023, Additional history exists Osteoporosis Screening-Bone Density Scan 10/01/2026 10/01/2024, 08/31/2022, 08/23/2022 DTaP/Tdap/Td Vaccine (3 - Td or Tdap) 09/28/2031 09/27/2021, 06/13/2012 Colon Cancer Screening-CT Colonography Discontinued 07/26/2022, 07/12/2021, 09/06/2012 Colon Cancer Screening-DNA Stool Discontinued 07/26/2022, 07/12/2021, 09/06/2012 Colon Cancer Screening-FIT Discontinued 07/26, 07/12/2021, 09/06/2012 Colon Cancer Screening-Sigmoidoscopy Discontinued 07/26/2022, 07/12/2021, 09/06/2012 Zoster Vaccine Discontinued 04/17/2023, 09/0 06/2022, 02/09/2023, Additional history exists Cervical Cancer Screening Discontinued 09/24/2023, 06/2016 Hepatitis C Screening Completed 12/13/2023 , 02/07/2021, 07/25/2018 Influenza Vaccine Completed 02/18/2025, , 04/17/2023, Additional history exists Hepatitis B Screening Discontinued [...] as needed Medical Devices Implanted Type Area Hazmat Cdl Driver Device Identifier Shelf Expiration Date Model / Serial / Lot Arthroplasty Knee Anchors Pelvis Procedures Procedure Name Priority Date/Time Associated Diagnosis Comments ECG 12-LEAD Routine 02/10/2025 8:42 AM CDT Preoperative clearance EGFR Routine 02/05/2025 2:38 PM CDT Stage 3a chronic kidney disease (HCC) RENAL FUNCTION PANEL Routine 02/05/2025 2:38 PM CDT Stage 3a chronic kidney disease (HCC) DEXA TBS AXIAL SKELETON BONE DENSITY 1 OR MORE SITES Schedule Routine, Read Routine (OP Routine) 10/01/2024 12:10 PM CDT Age-related osteoporosis without current pathological fracture SCREENING MAMMOGRAM BILATERAL W KENROY Schedule Routine, Read Routine (OP Routine) 05/27/2024 8:19 AM WELDING MACHINE OPERATOR ELECTRON BEAM Screening mammogram, encounter for HEPATITIS C ANTIBODY Routine 12/13/2023 12:54 PM CDT Rheumatoid arthritis of multiple sites without rheumatoid factor (HCC) Encounter for long-term (current) use of other medications HM COLONOSCOPY Routine 07/26/2022 HM PAP SMEAR WITH HPV Routine 06/25/2016 from Last 3 Months or Most Recently Relevant to Health Maintenance Results * ECG 12-LEAD (02/10/2025 8:42 AM CDT) Ligia Pardo RMA - 02/10/2025 8:42 AM CDT Julianna [...] ST segments normal Clinical impression: normal ECG us Julianna Zambrano DNP ECG ORDERABLES Final Resu lt * (ABNORMAL) eGFR (02/05/2025 2:38 PM CDT) eGFR 42(L) >=60 mL/min/1. 73 m2 Comment: [...] CDT Yaw Gibbs MD LAB BLOOD ORDERABLES Fin al Result [facility] [address] [facility] Department [place] [address] * (ABNORMAL) Renal function panel (02/05/2025 2:38 PM CDT) Pathologist [facility] Sodium 139 135 - 145 mmol/L Potassium, pl 5.0(H) 3.3 - 4.9 mmol/L [facility] Chloride 106 97 - 110 mmol/L [facility] CO2 24 22 - 32 mmol/L [facility] Anion gap 9 2 - 15 mmol/L [facility] BUN 21 6 - 25 mg/dL [facility] Creatinine 1.39(H) 0.60 - 1.10 mg/dL [facility] Glucose 85 70 - 199 mg/dL [facility] Comment: Interpretive Data Fasting glucose >/= 126 [...] classification and Diagnosis of Diabetes Diabetes Care 2021; 46: S19-S40. Current interpretive data was last revised 2022. Calcium 9.2 8.5 - 10.3 mg/dL [facility] Phosphorus, pl 3.5 2.3 - 4.5 mg/dL [facility] Albumin 3.9 3.5 - 5.0 g/dL [facility] Blood 02/05/2025 2:38 PM CDT 02/05/2025 5:56 PM CDT Yaw Gibbs MD LAB BLOOD ORDERABLES [facility] al Result [id number] [facility] Department [place] [address] * Dexa TBS Axial Skeleton Bone Density 1 or more sites (10/01/2024 12:10 PM CDT) Anatomical Region Laterality Modality Wrist, Body N/A Radiographic Genny ging Narrative 10/01/2024 2:07 PM CDT Patient Name: Jodie Valentin Date of : 1960 Date of scan: 10/01/2024 Bone mineral density was performed on a [employer] Discovery Densitometer. Based on machine cross-calibration and [...] by the International Society of Clinical Densitometry. [id number] Sacha Mohan MD [facility] DXA PROCEDURES Final Resul t * Screening Mammogram Bilateral W [place] (05/27/2024 8:19 AM WELDING MACHINE OPERATOR ELECTRON BEAM) Anatomical Region Laterality Modality Breast Bilateral Mammography Narrative 05/28/2024 12:19 PM WELDING MACHINE OPERATOR ELECTRON BEAM Mammogram Technique: Bilateral Digital Breast Tomosynthesis, Bilateral C-view 2D Screening mammogram. Views obtained: bilateral craniocaudal and bilateral mediolateral oblique. Computer Aided Detection was performed. Mammogram Findings: The present examination has been compared to prior imaging studies performed at [facility] on 07/25/2018, 11/01/2021 and 05/16/2023. There are [...] compared to prior imaging studies performed at [facility] on 07/25/2018, 11/01/2021 and 05/16/2023. There are [...] CDT Fax results to Dr Julia Tidwell [phone] Julia Tidwell NP LAB MICROBIOLOGY - GENERAL ORDERABLES [place] [address] [address] Department [place] [address] * COLONOSCOPY (07/26/2022) Colonoscopy Abnormal Historical Provider HEALTH MAINTENANCE Final Result * PAP SMEAR WITH HPV (06/25/2016) Pap smear Normal Historical Provider HEALTH MAINTENANCE Final Result from Last 3 Months or Most Recently Relevant to Health Maintenance Insurance [employer] [facility] MEDICARE [facility] MEDICARE [employer] MEDICARE Care Teams Hot Dimpling Machine Operator Relationship Specialty Start Date End Date Yaw Gibbs MD [address] [place] [address] [address] [address] PCP - General Internal Medicine 03/23/20 Lisa Dickerson DO Surgeon Orthopedic Surgery 07/25/18 [place] [address] [place] [address] Surgeon Orthopedic Surgery 07/25/18 [place] [address] [place] [address] Referring Physician Rheumatology 07/25/18 [place] [address] [place] [address] Surgeon Orthopedic Surgery 07/25/18 Trav Vaughn MD [address] [place] [address] Referring Physician Ophthalmology 07/25/18 Calixto Sweet MD [address] [place], [place] [address]GL[address]IA [address] [place] [address] Consulting Physician Orthopedic Surgery 08/04/20 Nuzhat Saunders MD [address] [place] [address] [address] [place] [address] Consulting Physician Dermatology 08/04/20 Karol Mills MD [address] [place] [address] [address] [place] [address] Consulting Physician Obstetrics and Gynecology 08/05/20 Socorro Gamboa DPT [address] [facility] [address] [place] [address] Physical Therapist Physical Therapy 10/05/22 Oliver Diamond LMT Massage Therapy 08/21/24
--- OUTSIDE RECORDS SUMMARY | 2025-03-13 11:07 | XMS_ITS | Encounter Summary ---
Author Organization [facility] Address [address] [place] [address] Care Team Providers Care Manager Project Name Role Phone Adriano Ralph MD, Hernandez [...] on file Legal Sex Female 2:45 AM TIME CLOCK MECHANIC Gender Identity Not on file Sexual Orientation Not on file documented as of this encounter Plan of Treatment Not on file documented as of this encounter Visit Diagnoses Not on filedocumented in this encounter Care Teams Manager Project Relationship Specialty Start Date End Date Hernandez Oh Jr., MD PCP - General 04/05/09 06/19/12 documented as of this encounter
--- OUTSIDE RECORDS SUMMARY | 2025-03-13 11:07 | XMS_ITS | Encounter Summary ---
Author Organization [facility] Address [address] [place] [address] Care Team Providers Care Account Resolution Analyst Name Role Phone Adriano Ralph MD, Hernandez Morrow Primary Care Provider Christine vailable Encounter Details Date Type Department Care Team (Latest Contact Info) Description 04/06/2003 Outpatient Historical [facility] Hernandez Oh Jr., MD NO ADDRESS ON FILE SCREENING MAMM-MAILG NEOPL-OTHER (Primary Dx) Social History Tobacco Use Types Packs/Day Years Used Date Smoking Tobacco: Never Assessed Comments Unknown Sex and Gender Information Value Date Recorded Sex Assigned at Not on file Legal Sex Female 2:45 AM SHRUB PLANTER Gender Identity Not on file Sexual Orientation Not on file documented as of this encounter Plan of Treatment Not on file documented as of this encounter Visit Diagnoses Diagnosis Other screening mammogram- Primary documented in this encounter Care Teams Account Resolution Analyst Relationship Specialty Start Date End Date Hernandez Oh Jr., MD PCP - General 04/05/09 06/19/12 documented as of this encounter
--- OUTSIDE RECORDS SUMMARY | 2025-03-13 11:07 | XMS_ITS | Encounter Summary ---
Author Organization [facility] Address [address] [place] [address] Care Team Providers Care Mine Car Mechanic Name Role Phone Lisa Dickerson DO Unavailable [phone] Rony Sharp MD Unavailable Walter Ralph MD, Sheldon Tompkins Unavailable + Akash Lagos MD Unavailable Trav Vaughn MD Unavailable Yaw Gibbs MD Primary Care Provider + Calixto Sweet MD Unavailable [phone] Nuzhat Saunders MD Unavailable [phone] Karol Mills MD Unavailable [phone] Socorro Gamboa DPT Unavailab le Oliver Diamond LMT Unavailable Unavaila ble Encounter Details Date Type Department Care Team (Late st Contact Info) Description 11/03/2022 Telephone [facility] [address] [place] [address] Richards, Dilan, RT Social History [...] on file Legal Sex 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 Gender Identity Female 10/10/2023 1:18 PM CDT [...] on filedocumented in this encounter Care Teams Mine Car Mechanic Relationship Specialty Start Date End Date Yaw Gibbs MD [address] [place] [address] [address] [place] [address] PCP - General Internal Medicine 03/23/20 Lisa Dickerson DO Surgeon Orthopedic Surgery 07/25/18 [place] [address] [place] [address] Surgeon Orthopedic Surgery 07/25/18 [place] [address] [place] [address] Referring Physician Rheumatology 07/25/18 [place] [address] [place] [address] Surgeon Orthopedic Surgery 07/25/18 Trav Vaughn MD [address] [place] [address] Referring Physician Ophthalmology 07/25/18 Calixto Sweet MD [address] [place], [place] [address]GLORIA WALKER [address] [place] [address] Consulting Physician Orthopedic Surgery 08/04/20 Nuzhat Saunders MD [address] [place], [place] [address]GLORIA WALKER [address] [place] [address] Consulting Physician Dermatology 08/04/20 Karol Mills MD [address] [place], [place] [address]GLORIA WALKER [address] [place] [address] Consulting Physician Obstetrics and Gynecology 08/05/20 Socorro Gamboa DPT [address] [facility] [address] [place] [address] Physical Therapist Physical Therapy 10/05/22 Oliver Diamond, APOORVA Massage Therapy 08/21/24 documented as of this encounter
--- OUTSIDE RECORDS SUMMARY | 2025-03-13 11:07 | XMS_ITS | Encounter Summary ---
Author Organization [facility] Address [address] [place] [address] Care Team Providers Care Cattle And Wheat Farmer Name Role Phone Adriano Ralph MD, Hernandez Morrow Primary Care Provider Christine vailable Encounter Details Date Type Department Care Team (Latest Contact Info) Description 11/28/2004 Outpatient Historical [facility] KELSIE Oh Jr., Hernandez Morrow MD NO ADDRESS ON FILE ENDOCRINE DISORDER NOS (Primary Dx) Social History Tobacco Use Types Packs/Day Years Used Date Smoking Tobacco: Never Assessed Comments Unknown Sex and Gender Information Value Date Recorded Sex Assigned at Not on file Legal Sex Female 2:45 AM CONDOMINIUM PROPERTY MANAGER Gender Identity Not on file Sexual Orientation [...] CHEMISTRY ORDERABLES Final Result Performing Organization Address [facility] Phone Number INTERFACE SYSTEM Refer to clinic/hospital department * TSH (11/28/2004 11:01 AM CDT) TSH 2.09 0.27 - 4.20 uU/mL INTERFACE SYSTEM 11/28/2004 11:0 1 AM CDT Hernandez Oh Jr., MD CHEMISTRY ORDERABLES Final Result Performing Organization Address [facility] Phone Number INTERFACE SYSTEM Refer to clinic/hospital [...] CHEMISTRY ORDERABLES Final Result Performing Organization Address [facility] Phone Number INTERFACE SYSTEM Refer to clinic/hospital [...] Primary documented in this encounter Care Teams Cattle And Wheat Farmer Relationship Specialty Start Date End Date Hernandez Oh Jr., MD PCP - General 04/05/09 06/19/12 documented as of this encounter
--- OUTSIDE RECORDS SUMMARY | 2025-03-13 11:07 | XMS_ITS | Clinical Summary ---
Author Organization [facility] Address [address] [place] [address] Phone Care Team Providers Care Funeral Home Manager Name Role Phone Unavailable Primary Care Provider [...] on file Legal Sex Female 2:45 AM AGRICULTURAL CONSULTANT Gender Identity Not on file Sexual Orientation [...] OR WO CAD Routine 06/20/2012 8:30 AM AGRICULTURAL CONSULTANT Other screening mammogram from Last 3 Months or Most Recently Relevant to Health Maintenance Results * MAMMO DIGITAL SCREEN BILAT (06/20/2012 8:30 AM AGRICULTURAL CONSULTANT) Anatomical Region Laterality Modality Breast Bilateral Mammography 06/20/2012 8:29 AM AGRICULTURAL CONSULTANT Narrative 06/20/2012 12:14 PM AGRICULTURAL CONSULTANT BILATERAL FULL FIELD DIGITAL SCREENING MAMMOGRAM WITH [...] Relevant to Health Maintenance Insurance OPTIONS PPO [id number] BS BLUE ACCESS/TRUE BLUE PPO
--- OUTSIDE RECORDS SUMMARY | 2025-03-13 11:07 | XMS_ITS | Encounter Summary ---
Author Organization [facility] Address 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 ENGINEER Gender Identity Not on file Sexual Orientation [...] AM CDT Narrative 01/28/2008 4:51 PM CDT [id number] [place], [place] [address] Admit Date: 01/28/2008 SANDRA SHASTA Sex: F Admit Prov: HERNANDEZ SLOAN Date: 1960 Primary Care Prov: TONE MARQUEZ CMRN: [id number] [id number] [facility] Ordering Prov: HERNANDEZ SLOAN Accession Number: [id number] Interpretation DIGITAL SCREENING MAMMOGRAM WITH COMPUTER-ASSISTED DIAGNOSIS [...] CXZ Procedure Note Catie Mar - 01/28/[address] [address] Admit Date: 01/28/2008 SHASTA VALENTIN Sex: F Admit Prov: HERNANDEZ SLOAN Date: 1960 Primary Care Prov: TONE MARQUEZ CMRN: [id number] [facility] [id number] IM[facility] SERVICES Ordering Prov: HERNANDEZ SLOAN Odalys [...] unspecified documented in this encounter Care Teams Senior Risk Manager Relationship Specialty Start Date End Date Hernandez Sloan Jr., MD PCP - General 04/05/09 06/19/12 documented as of this encounter
--- OUTSIDE RECORDS SUMMARY | 2025-03-13 11:07 | XMS_ITS | Encounter Summary ---
Author Organization [facility] Address [address] [place] [address] Care Team Providers Care Ocean Export Account Manager Name Role Phone Lisa Dickerson Unavailable [phone] Rony Sharp MD Unavailable [phone] Walter Ralph MD, Sheldon Tompkins Unavailable + Akash Lagos MD Unavailable Trav Vaughn MD Unavailable [phone] Eliezer Garcia MD Unavailable Yaw Gibbs MD Primary Care Provider + Calixto Sweet MD Unavailable Nuzhat Saunders MD Unavailable [phone] Karol Mills MD Unavailable Socorro Gamboa DPT Unavailab le Oliver Diamond LMRd Unavailable Unavaila ble Encounter Details Date Type Department Care Team (Late st Contact Info) Description 10/18/2020 Telephone [address] [address] [place] [address] Alena Motley, RT Social History Tobacco Use [...] on file 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 Gender Identity Female 10/10/2023 1:18 PM CDT [...] on filedocumented in this encounter Care Teams Ocean Export Account Manager Relationship Specialty Start Date End Date Yaw Gibbs MD [address] [place] [address] [address] [place] [address] PCP - General Internal Medicine 03/23/20 Lisa Dickerson DO Surgeon Orthopedic Surgery 07/25/18 [place] [address] [place] [address] Surgeon Orthopedic Surgery 07/25/18 [place] [address] [place] [address] Referring Physician Rheumatology 07/25/18 [place] [address] [place] [address] Surgeon Orthopedic Surgery 07/25/18 Trav Vaughn MD [address] [place] [address] Referring Physician Ophthalmology 07/25/18 Eliezer Garcia MD [address] [place] [address] Consulting Physician Gastroenterology 07/25/18 03/24/21 Calixto Sweet MD [address] [place], [place] [address] [place] [address] Consulting Physician Orthopedic Surgery 08/04/20 Nuzhat Saunders MD [address] [place], [place] [address] [place] [address] Consulting Physician Dermatology 08/04/20 Karol Mills MD [address] [place], [place] [address] [place] [address] Consulting Physician Obstetrics and Gynecology 08/05/20 Socorro Gamboa DPT [address] [facility] [address] [place] [address] Physical Therapist Physical Therapy 10/05/22 Oliver Diamond LMT Massage Therapy 08/21/24 documented as of this encounter
--- OUTSIDE RECORDS SUMMARY | 2025-03-13 11:07 | XMS_ITS | Encounter Summary ---
Author Organization [facility] Address [address] [place] [address] Care Team Providers Care Big Data Engineer Name Role Phone Adriano Ralph MD, Hernandez Morrow Primary Care Provider Christine vailable Encounter Details Date Type Department Care Team (Latest Contact Info) Description 11/27/2005 Outpatient Historical [facility] Hernandez Oh Jr., MD NO ADDRESS ON FILE Other Screening Mammogram (Primary Dx) Social History Tobacco Use Types Packs/Day Years Used Date Smoking Tobacco: Never Assessed Comments Unknown Sex and Gender Information Value Date Recorded Sex Assigned at Not on file Legal Sex Female 2:45 AM RUG RENOVATOR Gender Identity Not on file Sexual Orientation Not on file documented as of this encounter Plan of Treatment Not on file documented as of this encounter Visit Diagnoses Diagnosis Other screening mammogram- Primary documented in this encounter Care Teams Big Data Engineer Relationship Specialty Start Date End Date Hernandez Oh Jr., MD PCP - General 04/05/09 06/19/12 documented as of this encounter
--- OUTSIDE RECORDS SUMMARY | 2025-03-13 11:07 | XMS_ITS | Clinical Summary ---
Author Organization [facility] Address [address] [facility] [place] [address] Care Team Providers Care Hospice Clinical Manager Name Role Phone Yaw Gibbs MD Primary Care Provider [phone] Source Comments [facility],non-owned Affiliates and Associated Physician Practices is amultiple site organization consisting of ambulatory clinics and hospital sitesin [place], [place], [place] and [place]. This disclosure is being madepursuant to the Care Everywhere program and may not contain all information available regarding this patient. Last updated 18.[facility] Allergies Active Allergy Reactions Criticality Noted Date [...] on file Legal Sex Female 2:10 PM PRE ASSEMBLY WIRER Gender Identity Not on file Sexual Orientation Not on file Last Filed Vital Signs Vital Sign Reading Time Taken Comments Blood Pressure 128/72 06/02/2016 2:37 PM PRE ASSEMBLY WIRER Pulse 114 06/02/2016 2:37 PM PRE ASSEMBLY WIRER Temperature 37.2 C (99 F) 06/02/2016 2:37 PM PRE ASSEMBLY WIRER Respiratory Rate 18 06/02/2016 2:37 PM PRE ASSEMBLY WIRER Oxygen Saturation 98% 06/02/2016 2:37 PM PRE ASSEMBLY WIRER Inhaled Oxygen Concentration - - Weight 106.6 kg (235 lb) 06/02/2016 2:37 PM PRE ASSEMBLY WIRER Height 165.1 cm (5' 5) 06/02/2016 2:37 PM PRE ASSEMBLY WIRER Body Mass Index 39.11 06/02/2016 2:37 PM PRE ASSEMBLY WIRER Plan of Treatment Health Maintenance Due Date [...] 2008 ZOSTER VACCINE (1 of 2) 2008 DEPRESSION SCREENING 06/25/2024 COVID-19 VACCINE (1 - 2023- season) 2025 INFLUENZA VACCINE (#1) 2025 , 03/25/2019, 03/25/2018, [...] this topic Insurance HE[employer]LINK HE[employer]LINK Care Teams Hospice Clinical Manager Relationship Specialty Start Date End Date Yaw Gibbs MD [address] [place] [address] [address] [place] [address] PCP - General 10/28/20
--- OUTSIDE RECORDS SUMMARY | 2025-03-13 11:07 | XMS_ITS | Encounter Summary ---
Author Organization [facility] Address [address] [place] [address] Care Team Providers Care Client Service Associate Name Role Phone Adriano Ralph MD, Hernandez Morrow Primary Care Provider Christine vailable Encounter Details Date Type Department Care Team (Latest Contact Info) Description 04/15/2004 Outpatient Historical [facility] Hernandez Oh Jr., MD NO ADDRESS ON FILE SCREENING MAMM-MAILG NEOPL-OTHER (Primary Dx) Social History Tobacco Use Types Packs/Day Years Used Date Smoking Tobacco: Never Assessed Comments Unknown Sex and Gender Information Value Date Recorded Sex Assigned at Not on file Legal Sex Female 2:45 AM CALIBRATION CHECKER Gender Identity Not on file Sexual Orientation Not on file documented as of this encounter Plan of Treatment Not on file documented as of this encounter Visit Diagnoses Diagnosis Other screening mammogram- Primary documented in this encounter Care Teams Client Service Associate Relationship Specialty Start Date End Date Hernandez Oh Jr., MD PCP - General 04/05/09 06/19/12 documented as of this encounter
[2025-03-13 12:18] LABS: Hematocrit 37.5 % (37.0-47.0); Hemoglobin 11.9 g/dL (12.0-15.0); Immature Granulocyte Percent A 0.3 % (0-0.5); Lymphocytes Absolute Auto 1.65 K/mm3 (0.9-3.2); Mean Corpuscular HGB Conc 31.7 g/dl (32-36); Mean Corpuscular Hemoglobin 29.9 pg (26-34); Mean Corpuscular Volume 94.2 fl (80-100); Nucleated Red Blood Cells Absolute Auto 0.000 K/mm3 (0.0-0.012); Nucleated Red Blood Cells Perc 0.0 % (0.0-0.2); Platelet Count Result 215 k/mm3 (150-375); Red Blood Count 3.98 M/mm3 (4.2-5.4); White Blood Count 5.9 K/mm3 (4.5-10.0)
[2025-03-13 12:34] LABS: INR 1.0; Partial Thromboplastin Time 24.5 Seconds (22.3-36.8); Prothrombin Time 12.7 Seconds (11.1-14.7)
[2025-03-13 12:47] LABS: Anion Gap 6 mmol/L (4-12); Blood Urea Nitrogen 18 mg/dL (7-17); Calcium 8.9 mg/dL (8.4-10.2); Carbon Dioxide 25 mmol/L (22-30); Chloride 105 mmol/L (98-107); Estimated Glomerular Filt Rate 44; Glucose 84 mg/dL (65-110); Potassium 4.5 mmol/L (3.4-5.0); Sodium 136 mmol/L (137-145)
[2025-03-13 13:27] LABS: MRSA (PCR) NOT DETECTED (NOT DETECTE)
== END 2025-03-13 11:00 | disposition home or self-care (01) ==
LOC: ANHSURGERY 11:04
PROVIDERS: Anesthesiology; PCP Internal Medicine; Visit Provider Orthopaedic Surgery
DX: M19.011 Primary osteoarthritis, right shoulder (principal); N18.9 Chronic kidney disease, unspecified; E11.9 Type 2 diabetes mellitus without complications; E87.1 Hypo-osmolality and hyponatremia
CPT/HCPCS: 36415; 80048; 85025; 85610; 85730; 87641

== ENCOUNTER 2025-04-07 01:09 | Day surgery (SDC) | payer MEDICARE, SELFPAY ==
[2025-03-13 11:20] VITALS: BP 131/73; PULSE 74; RESP 16; TEMP 36.8; O2SAT 98; BMI 34.0
--- NOTE | 2025-03-13 11:38 | PC.NURSE ---
[facility] has started construction of its new state of the art ER which will open Spring 2026. With this, we anticipate parking may be a challenge for some our surgical patients and families. Parking spaces are limited but are available for all Surgical, obstetrics, and ER patients sharing this lot. If you arrive and find you are having a hard time finding a parking space, please note that we understand the challenges, please drive around the hospital and park near Hospital Entrance 1. When you enter this entrance, you can ask a volunteer to direct or take you back to the surgical waiting area to check in. We appreciate everyone?s understanding of these expected challenges while we build for your future. Report to the Outpatient Waiting Room, entrance under the green pavilion located off [address], at time __08:30am on date __04/07/25 . Planned Procedure Time: __10:30am .? Time changes happen often and if your time is changed the preop area will call you the afternoon before. - You and your visitor will be asked to self-screen and do not enter if you have any COVID symptoms. Please call surgeon if you need to reschedule. - A mask is optional within the hospital at this time. Patients may have clear liquids (water, carbonated beverages, clear teas, apple juice) until 3 hours prior to surgery with a maximum of 20 ounces. - No food from midnight until time of surgery and no smoking, or chewing tobacco (or any form of nicotine). No chewing gum, candy or mints. ( 07:30am) Take only the following medications with a SIP of water on the morning of surgery: Tylenol, & Hydrocodone if needed DO NOT STOP ANY OF YOUR OTHER PRESCRIPTION MEDICATIONS PRIOR TO SURGERY EXCEPT THE FOLLOWING Hold all vitamins and supplements for 3 days per anesthesiologist. Date of last dose 04/03/25 Medications to discontinue per physician Lefumanide for [address] Ospina Date to take last dose 03/27/25 Please no make-up, nail chilean, hairspray, perfume, deodorant, or body powder the day of surgery.? No jewelry (including any body piercings) or valuables the day of surgery, leave them at home.? Please take a shower or bath the night before, or the morning of, surgery with an antibacterial soap. GOLD DIAL ? Wear comfortable, loose fitting clothing.? Bring overnight, Robe, Clamp Truck Driver/Phone . - Jewelry must be removed prior to entering the operating room.? Rings and piercings that are not removed may be cut off. - The hospital will not accept responsibility for valuables.? - Please leave all valuables, including medications, at home the day of surgery. If you are going home after surgery, a licensed tractor driver teamster must drive you home.? - NO public transportation without another adult if you receive anesthesia. - We recommend that an adult stay with you for 24 hours following discharge. - We also recommend that you do not drive, make important decision, drink alcoholic beverages, or take any drugs that were not prescribed by your health care provider for at least 24 hours after your discharge time. Follow any additional instructions given to you from your surgeon. Telephone instructions given to __Patient and asked if any additional questions and then verbalized understanding. Patient advised to call surgeon office or pre surgery nurse liaison [phone] if any additional questions.
[2025-04-07] VITALS (17 sets, daily range): BP systolic 97–173; BP diastolic 63–95; PULSE 69–98; RESP 12–20; TEMP 36.1–36.5; O2SAT 88–99
--- NOTE | ~2025-04-07 | XR_ITS ---
EXAMINATION: XR shoulder RT min 2V, 04/07/2025 12:55 CDT HISTORY: POST OP RIGHT TOTAL SHOULDER COMPARISON: No comparisons available. Findings: No acute fracture or malalignment. Arthroplasty intact Soft tissues unremarkable. Impression: No acute fracture or malalignment. Reviewed, dictated and finalized at location P. Impression: No acute fracture or malalignment.
--- OUTSIDE RECORDS SUMMARY | 2025-04-07 01:13 | XMS_ITS | Encounter Summary ---
Author Organization [facility] Address [address] [place] [address] Care Team Providers Care Operator Prefinish Name Role Phone Adriano Ralph MD, Hernandez Morrow Primary Care Provider Christine vailable Encounter Details Date Type Department Care Team (Latest Contact Info) Description 11/28/2004 Outpatient Historical HIS [facility] KELSIE Oh Jr., Hernandez Morrow MD NO ADDRESS ON FILE ENDOCRINE DISORDER NOS (Primary Dx) Social History Tobacco Use Types Packs/Day Years Used Date Smoking Tobacco: Never Assessed Comments Unknown Sex and Gender Information Value Date Recorded Sex Assigned at Not on file Legal Sex Female 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 Gender Identity Not on file Sexual [...] CHEMISTRY ORDERABLES Final Result Performing Organization Address [facility] Phone Number INTERFACE SYSTEM Refer to clinic/hospital department * TSH (11/28/2004 11:01 AM CDT) TSH 2.09 0.27 - 4.20 uU/mL INTERFACE SYSTEM 11/28/2004 11:0 1 AM CDT Hernandez Oh Jr., MD CHEMISTRY ORDERABLES Final Result Performing Organization Address [facility] Phone Number INTERFACE SYSTEM Refer to [...] CHEMISTRY ORDERABLES Final Result Performing Organization Address [facility] Phone Number INTERFACE SYSTEM Refer to [...] Primary documented in this encounter Care Teams Operator Prefinish Relationship Specialty Start Date End Date Hernandez Oh Jr., MD PCP - General 04/05/09 06/19/12 documented as of this encounter
--- OUTSIDE RECORDS SUMMARY | 2025-04-07 01:13 | XMS_ITS | Clinical Summary ---
Author Organization [facility] Address [address] [facility] [place] [address] Care Team Providers Care Greensman Name Role Phone Yaw Gibbs MD Primary Care Provider [phone] Source Comments [facility],non-owned Affiliates and Associated Physician Practices is amultiple site organization consisting of ambulatory clinics and hospital sitesin [place], [place], [place] and [place]. This disclosure is being madepursuant to the Care Everywhere program and may not contain all information available regarding this patient. Last updated 18.[facility] Allergies Active Allergy Reactions Criticality Noted Date [...] on file Legal Sex Female 2:10 PM SPLUNK DEVELOPER Gender Identity Not on file Sexual Orientation Not on file Last Filed Vital Signs Vital Sign Reading Time Taken Comments Blood Pressure 128/72 06/02/2016 2:37 PM SPLUNK DEVELOPER Pulse 114 06/02/2016 2:37 PM SPLUNK DEVELOPER Temperature 37.2 C (99 F) 06/02/2016 2:37 PM SPLUNK DEVELOPER Respiratory Rate 18 06/02/2016 2:37 PM SPLUNK DEVELOPER Oxygen Saturation 98% 06/02/2016 2:37 PM SPLUNK DEVELOPER Inhaled Oxygen Concentration - - Weight 106.6 kg (235 lb) 06/02/2016 2:37 PM SPLUNK DEVELOPER Height 165.1 cm (5' 5) 06/02/2016 2:37 PM SPLUNK DEVELOPER Body Mass Index 39.11 06/02/2016 2:37 PM SPLUNK DEVELOPER Plan of Treatment Health Maintenance Due [...] this topic Insurance HE[employer]LINK HEALTHLINK Care Teams Greensman Relationship Specialty Start Date End Date Yaw Gibbs MD [address] [place] [address] [address] [place] [address] PCP - General 10/28/20
--- OUTSIDE RECORDS SUMMARY | 2025-04-07 01:13 | XMS_ITS | Clinical Summary ---
Author Organization [facility] Address [address] [place] [address] Phone Care Team Providers Care Research Clerk Name Role Phone Unavailable Primary Care Provider [...] on file Legal Sex Female 2:45 AM LICENSED FUNERAL DIRECTOR AND EMBALMER Gender Identity Not on file Sexual Orientation [...] OR WO CAD Routine 06/20/2012 8:30 AM LICENSED FUNERAL DIRECTOR AND EMBALMER Other screening mammogram from Last 3 Months or Most Recently Relevant to Health Maintenance Results * MAMMO DIGITAL SCREEN BILAT (06/20/2012 8:30 AM LICENSED FUNERAL DIRECTOR AND EMBALMER) Anatomical Region Laterality Modality Breast Bilateral Mammography 06/20/2012 8:29 AM LICENSED FUNERAL DIRECTOR AND EMBALMER Narrative 06/20/2012 12:14 PM LICENSED FUNERAL DIRECTOR AND EMBALMER BILATERAL FULL FIELD DIGITAL SCREENING MAMMOGRAM WITH [...] Relevant to Health Maintenance Insurance [employer] PPO [id number] BS BLUE ACCESS/TRUE BLUE PPO
--- OUTSIDE RECORDS SUMMARY | 2025-04-07 01:13 | XMS_ITS | Clinical Summary ---
Author Organization Formerly [facility] Address [address] [place] [address] Care Team Providers Care Quartz Miner Name Role Phone Lisa Dickerson DO Unavailable [phone] Rony Sharp MD Unavailable [phone] Walter Ralph MD, Sheldon Tompkins Unavailable + Akash Lagos MD Unavailable Trav Vaughn MD Unavailable Yaw Gibbs MD Primary Care Provider + Calixto Sweet MD Unavailable Nuzhat Saunders MD Unavailable Karol Mills MD Unavailable [phone] Socorro Gamboa DPT Unavailab le Oliver Diamond [...] (0.1 mg/gram) vaginal creamIndication s:Vaginal atrophy Apply 1/ applicator (1g) to the [...] (10 mg total) by mouth daily Active HYDROcodone-lobito taminophen (NORCO) 5-325 mg per tabletIndicatio ns:Pain Take 1 tablet by mouth every 8 (eight) hours as needed for pain 30 tablet 5 Active Active Problems Patient Care Coordination [...] surgical evaluation. Problem Noted Date Diagnosed Date BMI 33.0-33.9,adult 03/18/2025 Chronic bilateral low back pain without sciatica 03/18/2025 Pulmonary nodules 12/10/2024 Mild emphysema 12/10/2024 Ureteral stricture 10/03/2024 Spinal stenosis, lumbar kobe on, with neurogenic claudication 08/21/2024 Ascending aorta dilation 08/10/2024 Situational depression 05/06/2024 Recurrent major depressive disorder, in remissio n 10/18/2023 Snoring 10/18/2023 Chronic midline thoracic back pain 12/27/2022 Shingles 11/23/2022 Stage 3a chronic kidney disease 09/27/2022 Assessment & Plan (02/13/2024 12:56 PM CDT): Kidney function stable Recommending follow-up with reagent tender to discuss further treatment of hypertension Internal hemorrhoids 09/27/2022 Seasonal allergies 09/27/2022 Varicose vein of leg 09/27/2022 Osteopenia of neck of femur 08/31/2022 Overview (08/31/2022): T-score femoral neck 08/2022= -1.5 Frax is 19 Adjustment for TBS 19.1 Assessment & Plan (08/31/2022 10:15 AM KELLER MACHINE OPERATOR): At this point we will observe and [...] medications Assessment & Plan (04/30/2024 1:34 PM KELLER MACHINE OPERATOR): BP elevated today She is angry and crying. Also has severe pain today Assessment & Plan (03/14/2024 3:36 PM CDT): Off clonidine per reagent tender and BP has been stable at home Assessment & Plan (02/13/2024 12:49 PM CDT): BP labile at home Noting unwanted side effects from clonidine Discussed management with PCP, recommending follow up with Color Buffer due to kidney disease Resolved Problems Problem [...] surgeon as requested BMI 33.0-33.9,adult 09/17/2024 12/11/19 25 Class 2 [...] Encounters Date Type Department Care Team Description 03/30/2025 1:45 PM CDT Lab [address] [address] Rheumatoid arthritis of multiple sites without rheumatoid factor (HCC) (Primary Dx); Polypharmacy 03/16/2025 7:30 AM CDT Telemedicine [facility] Orthopaedic Surgery [address] [place] [address] 4 [address] [place] [address] Claudia Peace NP BMI 33.0-33.9,adult (Primary Dx); Chronic bilateral low back pain without sciatica 03/09/2025 8:20 AM CDT Office Visit [facility] Orthopaedic Surgery [address] [place] [address] 4 [address] [place] [phone] Erin Correia MD Chronic bilateral low back pain without sciatica (Primary Dx); Tendinopathy of gluteal region 03/04/2025 Telephone [facility] Orthopaedic Surgery [address] [place] [address] [address] [place] [address] Cely Glover RN 03/04/2025 Telephone [facility] Orthopaedic Surgery [address] [place] [address] 4 [address] [place] [phone] Cely Glover RN 03/03/2025 12:45 PM CDT Office Visit [address] [place] [phone] Yaw Gibbs MD Medicare annual wellness visit, [...] deficiency; Vaccine counseling; Easy bruisability 02/12/[address] [address] Yaw Gibbs MD 02/12/[address] [address] Yaw Gibbs MD Surgical Clearance (Dr. Ospina) 02/10/2025 9:40 AM CDT Office Visit [facility] Orthopaedic Surgery [address] [facility] [address] [place] [phone] Erin Correia MD Chronic pain syndrome (Primary Dx); Chronic bilateral low back pain without sciatica 02/10/2025 8:30 AM CDT Office Visit [address] [address] Julianna Zambrano DNP Preoperative clearance (Primary Dx); Chronic right shoulder pain; Essential hypertension 02/06/2025 Results Follow-Up [address] [address] Yaw Gibbs MD Renal function panel, eGFR 02/05/2025 2:25 PM CDT Lab [address] [address] Stage 3a chronic kidney disease (HCC) 01/22/2025 Telephone [facility] Infectious Diseases [address] [place] [address] [address] [place] [address] Kee Colón [facility] Travel Vaccine Administered 01/13/[address] [place] [phone] Thomas, Dewitt Appointment 01/12/2025 Telephone [place] [address] [facility] [address] [place] [address] Yaw Gibbs MD Request Medical Clearance 01/08/2025 10:30 AM CDT Clinical Support [facility] Medicine Orthopaedic Surgery [address] [facility] [address] [place] [address] Claudia Peace, REFLESHER BMI 33.0-33.9,adult (Primary Dx); Prediabetes [R73.03] from Last 3 Months Immunizations Immunization Administration [...] yore ham string musclesaway from plevis. 04/2017 TUBAL LIGATION Medical History Medical History Date Comments Crossing [...] Gout Rheumatoid arthritis (HCC) Ischemic colitis Depression 2000 Hypertension Osteopenia Chronic kidney disease 2015 Autoimmune disease 02/2021 GI (gastrointestinal bleed) 2010 Urinary tract infection 06/16 Urinary incontinence 2014 Menopause ovarian failure 2004 Family History Medical History Relation Name Comments Allergy (severe) Brother Eliel Long Arthritis Brother Eliel Long Allergy (severe) Father Dom long Coronary artery disease Father Dom long Early Father Odm long Heart attack Father Dom long Heart [...] on file Legal Sex Female 1:02 AM KELLER MACHINE OPERATOR Gender Identity Female 10/10/2023 1:18 PM CDT [...] CDT Respiratory Rate 20 08/28/2024 8:38 AM KELLER MACHINE OPERATOR Oxygen Saturation 97% 03/03/2025 12:45 PM CDT [...] 11/13/2023, 10/18/2023 Well Visit 65+ 03/03/2026 03/03/2025, 0902/2025, 10/18/2023, Additional history exists Osteoporosis Screening-Bone Density Scan 10/01/2026 10/01/2024, 08/31/2022, 08/23/2022 DTaP/Tdap/Td Vaccine (3 - Td or Tdap) 09/28/2031 09/27/2021, 06/13/2012 Colon Cancer Screening-CT Colonography Discontinued 07/26/2022, 07/12/2021, 09/06/2012 Colon Cancer Screening-DNA Stool Discontinued 07/26/2022, 07/12/2021, 09/06/2012 Colon Cancer Screening-FIT Discontinued 07/26, 07/12/2021, 09/06/2012 Colon Cancer Screening-Sigmoidoscopy Discontinued 07/26/2022, 07/12/2021, 09/06/2012 Zoster Vaccine Discontinued 04/17/2023, 09/06/2022, 02/09/2023, Additional history exists Cervical Cancer Screening [...] as needed Medical Devices Implanted Type Area Salesperson Fashion Accessories Device Identifier Shelf Expiration Date Model / Serial / Lot Arthroplasty Knee Anchors Pelvis Procedures Procedure Name Priority Date/Time Associated Diagnosis Comments EGFR Routine 03/30/2025 1:48 PM CDT Rheumatoid arthritis of multiple sites without rheumatoid factor (HCC) Polypharmacy DIFFERENTIAL AUTO Routine 03/30/2025 1:4 8 PM CDT Rheumatoid arthritis of multiple sites without rheumatoid factor (HCC) Polypharmacy ERYTHROCYTE SEDIMENTATION RATE Routine 03/30/2025 1:48 PM CDT Rheumatoid arthritis of multiple sites without rheumatoid factor (HCC) Polypharmacy CRP (ACUTE PHASE) Routine 03/30/2025 1:4 8 PM CDT Rheumatoid arthritis of multiple sites without rheumatoid factor (HCC) Polypharmacy CBC WITH AUTO DIFFERENTIAL Routine 03/30/2025 1:48 PM CDT Rheumatoid arthritis of multiple sites without rheumatoid factor (HCC) Polypharmacy COMPREHENSIVE METABOLIC PANEL Routine 03/30/2025 1:48 PM CDT Rheumatoid arthritis of multiple sites without rheumatoid factor (HCC) Polypharmacy ECG 12-LEAD Routine 02/10/2025 8:42 AM CDT [...] Read Routine (OP Routine) 05/27/2024 8:19 AM KELLER MACHINE OPERATOR Screening mammogram, encounter for HEPATITIS C ANTIBODY Routine 12/13/2023 12:54 PM CDT Rheumatoid arthritis of multiple sites without rheumatoid factor (HCC) Encounter for long-term (current) use of other medications HM COLONOSCOPY Routine 07/26/2022 HM PAP SMEAR WITH HPV Routine 06/25/2016 from Last 3 Months or Most Recently Relevant to Health Maintenance Results * (ABNORMAL) eGFR (03/30/2025 1:48 PM CDT) eGFR 43(L) >=60 mL/min/1. 73 m2 Comment: Interpretive Data [...] interpretive data was last reviewed 2021. Blood 03/30/2025 1:48 PM CDT 03/30/2025 6:08 PM CDT us Julia Tidwell NP LAB BLOOD ORDERABLES Final Result [facility] [address] [facility] Department [place] [address] * Differential, auto (03/30/2025 1:48 PM CDT) Pathologist [facility] Neutrophil abs 3.67 1.50 - 6.50 K/cumm Imm gran abs 0.01 0.00 - 0.10 K/cumm [facility] Lymphocyte abs 2.09 0.80 - 3.30 K/cumm [facility] Monocyte abs 0.59 0.20 - 0.80 K/cumm [facility] Eosinophil abs 0.21 0.00 - 0.50 K/cumm [facility] Basophil abs 0.10 0.00 - 0.10 K/cumm [facility] Neutrophil pct 55.2 % [facility] Comment: Interpretive Data Percent cell count reference ranges are not reported, since discordance with absolute values may lead to misinterpretation of CBC data. Current Interpretive Data was last revised on 2017. Imm gran pct 0.1 % [facility] Comment: Interpretive Data Percent cell count reference ranges are not reported, since discordance with absolute values may lead to misinterpretation of CBC data. Current Interpretive Data was last revised on 2017. Lymphocyte pct 31.3 % [facility] Comment: Interpretive Data Percent cell count reference ranges are not reported, since discordance with absolute values may lead to misinterpretation of CBC data. Current Interpretive Data was last revised on 2017. Monocyte pct 8.8 % [facility] Comment: Interpretive Data Percent cell count reference ranges are not reported, since discordance with absolute values may lead to misinterpretation of CBC data. Current Interpretive Data was last revised on 2017. Eosinophil pct 3.1 % [facility] Comment: Interpretive Data Percent cell count reference ranges are not reported, since discordance with absolute values may lead to misinterpretation of CBC data. Current Interpretive Data was last revised on 2017. Basophil pct 1.5 % [facility] Comment: Interpretive Data Percent cell count reference ranges are not reported, since discordance with absolute values may lead to misinterpretation of CBC data. Current Interpretive Data was last revised on 2017. Blood 03/30/2025 1:48 PM CDT 03/30/2025 6:08 PM CDT Julia Tidwell NP LAB BLOOD ORDERABLES Final Result Performing Organization Address City/[facility] Co de Phone Number [facility] [address] [facility] Department [place] [address] * (ABNORMAL) CBC with auto differential (03/30/2025 1:48 PM CDT) Pathologist [facility] WBC 6.67 3.80 - 9.90 K/cumm Hgb 12.5 11.9 - 15.5 g/dL [facility] Hct 38.8 35.6 - 45.5 % [facility] Plt 194 150 - 400 K/cumm [facility] MPV 11.5 9.1 - 12.3 fL [facility] RBC 4.16 3.90 - 5.20 M/cumm [facility] MCV 93.3 81.3 - 96.4 fL [facility] MCH 30.0 27.1 - 33.3 pg [facility] MCHC 32.2(L) 32.3 - 35.7 g/dL [facility] RDW CV 12.8 11.1 - 14.9 % [facility] RDW SD 43.8 35.7 - 48.1 fL [facility] NRBC abs 0.00 0.00 - 0.01 K/cumm [facility] Blood 03/30/2025 1:48 PM CDT 03/30/2025 6:08 PM CDT Julia Tidwell NP LAB BLOOD ORDERABLES Final Result Performing Organization Address City/[facility] Co de Phone Number [address] [address] * Erythrocyte sedimentation rate (03/30/2025 1:48 PM CDT) [facility] Erythrocyte sedimentation rate 29 1 - 30 mm/hr Blood Venous blood specimen / Unknown 03/30/2025 1:48 PM CDT 03/30/2025 6:08 PM CDT Julia Tidwell REFLESHER LAB BLOOD ORDERABLES Final Result Performing Organization Address [facility] de Phone Number [address] [address] * CRP (acute phase) (03/30/2025 1:48 PM CDT) [facility] CRP 9.4 <=10.0 mg/L Blood Venous blood specimen / Unknown 03/30/2025 1:48 PM CDT 03/30/2025 6:08 PM CDT Julia Tidwell REFLESHER LAB BLOOD ORDERABLES Final Result Performing Organization Address [facility] Phone Number [address] [address] * (ABNORMAL) Comprehensive metabolic panel (03/30/2025 1:48 PM CDT) [facility] Sodium 138 135 - 145 mmol/L Potassium, pl 4.3 3.3 - 4.9 mmol/L [facility] Chloride 104 97 - 110 mmol/L [facility] CO2 24 22 - 32 mmol/L [facility] Anion gap 10 2 - 15 mmol/L [facility] BUN 17 6 - 25 mg/dL [facility] Creatinine 1.36(H) 0.60 - 1.10 mg/dL [facility] Glucose 100 70 - 199 mg/dL [facility] Comment: Interpretive Data Fasting glucose >/= 126 [...] interpretive data was last revised 2022. Calcium 9.6 8.5 - 10.3 mg/dL [facility] Bilirubin, total 0.3 0.1 - 1.2 mg/dL [facility] Protein, pl 7.0 6.5 - 8.5 g/dL [facility] Albumin 4.1 3.5 - 5.0 g/dL [facility] Alk phos 99 40 - 130 Units/L [facility] ALT 11 7 - 45 Units/L [facility] AST 23 10 - 45 Units/L [facility] Blood Venous blood specimen / Unknown 03/30/2025 1:48 PM CDT 03/30/2025 6:08 PM CDT Julia Tidwell NP LAB BLOOD ORDERABLES Final Result [facility] [address] [facility] Department of Laboratories [place] [phone] * ECG 12-LEAD (02/10/2025 8:42 AM CDT) [...] segments normal Clinical impression: normal ECG Julianna Zambrano DNP ECG ORDERABLES Final Resu [...] MD LAB BLOOD ORDERABLES Fin al Result [facility] [address] [facility] Department [place] [address] * (ABNORMAL) Renal function panel (02/05/2025 2:38 PM CDT) Sodium 139 135 - 145 mmol/L Potassium, pl 5.0(H) 3.3 - 4.9 mmol/L [facility] Chloride 106 97 - 110 mmol/L [facility] CO2 24 22 - 32 mmol/L [facility] Anion gap 9 2 - 15 mmol/L [facility] BUN 21 6 - 25 mg/dL [facility] Creatinine 1.39(H) 0.60 - 1.10 mg/dL [facility] Glucose 85 70 - 199 mg/dL [facility] Comment: Interpretive Data Fasting glucose >/= 126 [...] 2022. Calcium 9.2 8.5 - 10.3 mg/dL [facility] Phosphorus, pl 3.5 2.3 - 4.5 mg/dL [facility] Albumin 3.9 3.5 - 5.0 g/dL [facility] Blood 02/05/2025 2:38 PM CDT 02/05/2025 5:56 PM CDT us Yaw Gibbs MD LAB BLOOD ORDERABLES Fin al Result [facility] [address] [facility] Department [place] [address] * Dexa TBS Axial Skeleton Bone Density 1 or more sites (10/01/2024 12:10 PM CDT) Anatomical Region Laterality Modality Wrist, Body N/A Radiographic Genny ging Narrative 10/01/2024 2:07 PM CDT Patient Name: Jodie Valentin Date of : 1960 Date of scan: 10/01/2024 Bone mineral density was performed on a Holo[employer] Discovery Densitometer. Based on machine cross-calibration and [...] mineral density scan were prepared by Indira Chavarria) SALLY who is accredited by the International Society of Clinical Densitometry. The overall patient assessment and scan interpretation were performed by Dr. Sacha Mohan who is certified by the International Society of Clinical Densitometry. [id number] Sacha Mohan MD IM DXA PROCEDURES Final Resul t * Screening Mammogram Bilateral W Kenroy (05/27/2024 8:19 AM KELLER MACHINE OPERATOR) Anatomical Region Laterality Modality Breast Bilateral Mammography Narrative 05/28/2024 12:19 PM KELLER MACHINE OPERATOR Mammogram Technique: Bilateral Digital Breast Tomosynthesis, Bilateral C-view 2D Screening mammogram. Views obtained: bilateral craniocaudal and bilateral mediolateral oblique. Computer Aided Detection was performed. Mammogram Findings: The present examination has been compared to prior imaging studies performed at [facility] on 07/25/2018, 11/01/2021 and 05/16/2023. There [...] compared to prior imaging studies performed at [facility] on 07/25/2018, 11/01/2021 and 05/16/2023. There [...] CDT Fax results to Dr Julia Tidwell [phone] Julia Tidwell NP LAB MICROBIOLOGY - GENERAL ORDERABLES Edited Result - Final [facility] [address] Department [place] [address] * COLONOSCOPY (07/26/2022) Colonoscopy Abnormal Historical Provider HEALTH MAINTENANCE Final Result * PAP SMEAR WITH HPV (06/25/2016) Pap smear Normal Historical Provider HEALTH MAINTENANCE Final Result from Last 3 Months or Most Recently Relevant to Health Maintenance [facility] MEDICARE [facility] MEDICARE AETNA MEDICARE Care Teams Quartz Miner Relationship Specialty Start Date End Date Yaw Gibbs MD [facility] [address] [address] PCP - General Internal Medicine 03/23/20 Lisa Dickerson DO Surgeon Orthopedic Surgery 07/25/18 [place] [address] [place] [address] Surgeon Orthopedic Surgery 07/25/18 [place] [address] [place] [address] Referring Physician Rheumatology 07/25/18 [place] [address] [place] [address] Surgeon Orthopedic Surgery 07/25/18 Trav Vaughn MD [address] [place] [address] Referring Physician Ophthalmology 07/25/18 Calixto Sweet MD [address] [place], [place] [address]GLORIA WALKER [address] [place] [address] Consulting Physician Orthopedic Surgery 08/04/20 Nuzhat Saunders MD [address] [place] [address] [address] [place] [address] Consulting Physician Dermatology 08/04/20 Karol Mills MD [address] [place] [address] [address] [place] [address] Consulting Physician Obstetrics and Gynecology 08/05/20 Socorro Gamboa, FREDERICKT [address] [facility] [address] [place] [address] Physical Therapist Physical Therapy 10/05/22 Oliver Diamond, JEROMET Massage Therapy 08/21/24
--- OUTSIDE RECORDS SUMMARY | 2025-04-07 01:13 | XMS_ITS | Encounter Summary ---
Author Organization [facility] Address [address] [place] [address] Care Team Providers Care Painting Trades Worker Name Role Phone Adriano Ralph MD, Hernandez Morrow Primary Care Provider Christine vailable Encounter Details Date Type Department Care Team (Latest Contact Info) Description 11/27/2005 Outpatient Historical [facility] Hernandez Oh Jr., MD NO ADDRESS ON FILE Other Screening Mammogram (Primary Dx) Social History Tobacco Use Types Packs/Day Years Used Date Smoking Tobacco: Never Assessed Comments Unknown Sex and Gender Information Value Date Recorded Sex Assigned at Not on file Legal Sex Female 2:45 AM SAP GATHERER Gender Identity Not on file Sexual Orientation Not on file documented as of this encounter Plan of Treatment Not on file documented as of this encounter Visit Diagnoses Diagnosis Other screening mammogram- Primary documented in this encounter Care Teams Painting Trades Worker Relationship Specialty Start Date End Date Hernandez Oh Jr., MD PCP - General 04/05/09 06/19/12 documented as of this encounter
--- OUTSIDE RECORDS SUMMARY | 2025-04-07 01:13 | XMS_ITS | Encounter Summary ---
Author Organization [facility] Healthcare Address [address] [place] [address] Care Team Providers Care Rigger Third Name Role Phone Lisa Dickerson DO Unavailable [phone] Rony Sharp MD Unavailable [phone] Walter Ralph MD, Sheldon Tompkins Unavailable + Akash Lagos MD Unavailable [phone] Trav Vaughn MD Unavailable Yaw Gibbs MD Primary Care Provider + Calixto Sweet MD Unavailable Nuzhat Saunders MD Unavailable Karol Mills MD Unavailable Socorro Gamboa DPT Unavailab le Oliver Diamond LMT Unavailable Unavaila ble Encounter Details Date Type Department Care Team (Late st Contact Info) Description 11/03/2022 Telephone [facility] [address] [place] [address] Richards, Dilan, RT Social History [...] on file Legal Sex Female 1:02 AM ONLINE MERCHANDISING MANAGER Gender Identity Female 10/10/2023 1:18 PM [...] on filedocumented in this encounter Care Teams Rigger Third Relationship Specialty Start Date End Date Yaw Gibbs MD [address] [place] [address] [address] [place] [address] PCP - General Internal Medicine 03/23/20 Lisa Dickerson DO Surgeon Orthopedic Surgery 07/25/18 [place] [address] [place] [address] Surgeon Orthopedic Surgery 07/25/18 [place] [address] [place] [address] Referring Physician Rheumatology 07/25/18 [place] [address] [place] [address] Surgeon Orthopedic Surgery 07/25/18 Trav Vaughn MD [address] [place] [address] Referring Physician Ophthalmology 07/25/18 Calixto Sweet MD [address] [place], [place] [address]GLORIA WALKER [address] [place] [address] Consulting Physician Orthopedic Surgery 08/04/20 Nuzhat Saunders MD [address] [place], [place] [address]GLORIA WALKER [address] [place] [address] Consulting Physician Dermatology 08/04/20 Karol Mills MD [address] [place], [place] [address]GLORIA WALKER [address] [place] [address] Consulting Physician Obstetrics and Gynecology 08/05/20 Socorro Gamboa DPT [address] [facility] [address] [place] [address] Physical Therapist Physical Therapy 10/05/22 Oliver Diamond, APOORVA Massage Therapy 08/21/24 documented as of this encounter
--- OUTSIDE RECORDS SUMMARY | 2025-04-07 01:13 | XMS_ITS | Encounter Summary ---
Author Organization [facility] Address [address] [place] [address] Care Team Providers Care Real Estate Administrative Assistant Name Role Phone Adriano Ralph MD, Hernandez [...] on file Legal Sex Female 2:45 AM TEAM PHYSICIAN Gender Identity Not on file Sexual Orientation Not on file documented as of this encounter Plan of Treatment Not on file documented as of this encounter Visit Diagnoses Not on filedocumented in this encounter Care Teams Real Estate Administrative Assistant Relationship Specialty Start Date End Date Hernandez Oh Jr., MD PCP - General 04/05/09 06/19/12 documented as of this encounter
--- OUTSIDE RECORDS SUMMARY | 2025-04-07 01:13 | XMS_ITS | Encounter Summary ---
Author Organization [employer] Address [address] [place] [address] Care Team Providers Care Barrel Rifler Broach Name Role Phone Adriano Ralph MD, Hernandez Morrow Primary Care Provider Christine vailable Encounter Details Date Type Department Care Team (Latest Contact Info) Description 04/15/2004 Outpatient Historical [facility] Hernandez Oh Jr., MD NO ADDRESS ON FILE SCREENING MAMM-MAILG NEOPL-OTHER (Primary Dx) Social History Tobacco Use Types Packs/Day Years Used Date Smoking Tobacco: Never Assessed Comments Unknown Sex and Gender Information Value Date Recorded Sex Assigned at Not on file Legal Sex Female 2:45 AM BAG LOADER MACHINE OPERATOR Gender Identity Not on file Sexual Orientation Not on file documented as of this encounter Plan of Treatment Not on file documented as of this encounter Visit Diagnoses Diagnosis Other screening mammogram- Primary documented in this encounter Care Teams Barrel Rifler Broach Relationship Specialty Start Date End Date Hernandez Oh Jr., MD PCP - General 04/05/09 06/19/12 documented as of this encounter
--- OUTSIDE RECORDS SUMMARY | 2025-04-07 01:13 | XMS_ITS | Encounter Summary ---
Author Organization [facility] Healthcare Address [address] [place] [address] Care Team Providers Care Drug Abuse Counselor Name Role Phone Lisa Dickerson Unavailable [phone] Rony Sharp MD Unavailable Walter Ralph [...] (Late st Contact Info) Description 10/18/2020 Telephone [address] [address] [place] [address] Alena Motley, RT Social History Tobacco Use [...] on file Legal Sex Female 1:02 AM KNOTTING MACHINE OPERATOR PORTABLE Gender Identity Female 10/10/2023 1:18 PM CDT [...] on filedocumented in this encounter Care Teams Drug Abuse Counselor Relationship Specialty Start Date End Date Yaw Gibbs MD [address] [place] [address] [address] [place] [address] PCP - General Internal Medicine 03/23/20 Lisa Dickerson DO Surgeon Orthopedic Surgery 07/25/18 [place] [id number] [place] [address] Surgeon Orthopedic Surgery 07/25/18 [place] [address] [place] [address] Referring Physician Rheumatology 07/25/18 [place] [address] [place] [address] Surgeon Orthopedic Surgery 07/25/18 Trav Vaughn MD [address] [place] [address] Referring Physician Ophthalmology 07/25/18 Eliezer Garcia MD [address] [place] [address] Consulting Physician Gastroenterology 07/25/18 03/24/21 Calixto Sweet MD [address] [place], [place] [address] [place] [address] Consulting Physician Orthopedic Surgery 08/04/20 Nuzhat Saunders MD [address] [place], [place] [address] [place] [address] Consulting Physician Dermatology 08/04/20 Karol Mills MD [address] [place], [place] [address] [place] [address] Consulting Physician Obstetrics and Gynecology 08/05/20 Socorro Gamboa DPT [address] [facility] [address] [place] [address] Physical Therapist Physical Therapy 10/05/22 Oliver Diamond LMT Massage Therapy 08/21/24 documented as of this encounter
--- OUTSIDE RECORDS SUMMARY | 2025-04-07 01:13 | XMS_ITS | Encounter Summary ---
Author Organization [email or web address] Address 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
--- OUTSIDE RECORDS SUMMARY | 2025-04-07 01:13 | XMS_ITS | Encounter Summary ---
Author Organization [facility] Address [address] [place] [address] Care Team Providers Care Pilot Highway Patrol Name Role Phone Adriano Ralph MD, Hernandez Morrow Primary Care Provider Christine vailable Encounter Details Date Type Department Care Team (Latest Contact Info) Description 01/28/2008 Outpatient Historical [facility] Hernandez Sloan Jr., MD NO ADDRESS ON FILE Other Screening Mammogram; Breast Screening, Unspecified Social History Tobacco Use Types Packs/Day Years Used Date Smoking Tobacco: Never Assessed Comments Unknown Sex and Gender Information Value Date Recorded Sex Assigned at Not on file 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 Gender Identity Not on file Sexual Orientation [...] Region Laterality Modality Breast Bilateral Other 01/28/2008 9:1 6 AM CDT Narrative 01/28/2008 4:51 PM CDT [address] [address] Admit Date: 01/28/2008 SHASTA VALENTIN Sex: F Admit Prov: HERNANDEZ SLOAN Date: 1960 Primary Care Prov: TONE MARQUEZ CMRN: [id number] [id number] Ordering Prov: HERNANDEZ SLOAN Accession Number: [id number] Interpretation DIGITAL SCREENING MAMMOGRAM WITH COMPUTER-ASSISTED DIAGNOSIS [...] CXZ Procedure Note Catie Mar - 01/28/[address] [address] Admit Date: 01/28/2008 SHASTA VALENTIN Sex: F Admit Prov: HERNANDEZ SLOAN Date: 1960 Primary Care Prov: TONE MARQUEZ CMRN: [id number] [id number] [facility] Ordering Prov: HERNANDEZ SLOAN Interpretation DIGITAL SCREENING MAMMOGRAM WITH COMPUTER-ASSISTED DIAGNOSIS [...] unspecified documented in this encounter Care Teams Pilot Highway Patrol Relationship Specialty Start Date End Date Hernandez Sloan Jr., MD PCP - General 04/05/09 06/19/12 documented as of this encounter
--- NOTE | 2025-04-07 07:17 | WPDHPUPDATE1 ---
History and Physical Update Update Date/Time: 04/07/25 07:17 History and Physical has been reviewed, including an updated exam of the patient. There are NO changes in the patient's condition. Risks, benefits, and alternatives have been discussed and questions answered. Patient agrees to proceed with procedure.
[2025-04-07] MEDS: LACTATED RINGERS 1,000 ML 30 ML IV CONT ×2 (09:20→12:52)
[2025-04-07] MEDS: TRANEXAMIC ACID 1,000MG/ISO100 1,000 MG/100 ML BAG 200 MG IVPB (09:25)
[2025-04-07] MEDS: SCOPOLAMINE 1 MG PATCH 1 PATCH TRANSDERM (10:20)
[2025-04-07] MEDS: ceFAZolin 2 GM in SODIUM CHLORIDE 0.9% IV 50 ML 100 ML IVPB ×2 (10:20→18:44)
--- NOTE | 2025-04-07 10:41 | WPDANESEPPF ---
Anes - Initial Pre Proc Eval Procedure: Operation Date: 04/07/25 10:30 Proposed Procedures p Right Reverse Total Shoulder Arthroplasty - Ha Ospina MD Date/Time: 04/07/25 10:41 Surgeon: Ha Ospina MD Pre Op Diagnosis: Prim O A Right Shoulder Patient Data Age: 64 Gender: F Height: 1.6 m Weight: 85.1 kg Last Vital Signs Temp 97 F L 04/07/25 08:40 Pulse 98 04/07/25 08:40 Resp 18 04/07/25 08:40 BP 137/83 04/07/25 08:40 Pulse Ox 97 04/07/25 08:40 O2 Del Method Room Air 04/07/25 08:40 Allergies Allergy/AdvReac Type Severity Reaction Status Date / Time duloxetine (From Cymbalta) AdvReac Intermediate rash Verified 04/07/25 09:27 adhesive tape AdvReac Mild Blister Verified 04/07/25 09:27 codeine AdvReac Mild Hives Verified 04/07/25 09:27 Sulfa (Sulfonamide AdvReac Mild Rash Verified 04/07/25 09:27 Antibiotics) Home Medications ?Medication ?Instructions ?Recorded ?Confirmed ?Type cannabidiol 100 mg/mL oral solution 100 mg PO HS 03/15/21 04/07/25 History cholecalciferol (vitamin D3) 50 50 mcg PO HS 03/15/21 04/07/25 History mcg (2,000 unit) capsule fluticasone propionate 50 1 spray intranasal DAILY 03/15/21 04/07/25 History mcg/actuation nasal spray,suspension sertraline 100 mg tablet 100 mg PO HS 03/15/21 04/07/25 History acetaminophen 650 mg 650 mg PO BID 04/19/21 04/07/25 History tablet,extended release omeprazole 40 mg capsule,delayed 40 mg PO DAILY 04/19/21 04/07/25 History release leflunomide 20 mg tablet 20 mg PO DAILY 01/14/24 04/07/25 History estradiol 0.01% (0.1 mg/gram) 1 g vaginal WEEKLY 01/18/24 04/01/25 History vaginal cream atorvastatin 10 mg tablet (Lipitor) 10 mg PO DAILY 08/08/24 04/07/25 History albuterol sulfate 90 mcg/actuation 2 inh inhalation Q6-8H PRN 03/13/25 04/01/25 History aerosol inhaler shortness of breath or wheezing aspirin 81 mg tablet,delayed 81 mg PO BID 14 days #28 tabs 04/07/25 Rx release methylprednisolone 4 mg tablets in See Rx Instructions PO .COMPLEX 04/07/25 Rx a dose pack (Medrol (Ruben)) #21 ea oxycodone-acetaminophen 5 mg-325 1 - 2 tablet PO Q4-6H PRN pain 7 04/07/25 Rx mg tablet days #30 tabs Laboratory Tests 04/07/25 09:21 Blood Type O Positive Antibody Screen Negative Patient hx anesthesia problems: post op nausea/vomiting Family hx anesthesia problems: none Results Review: All pre-operative results and documents have been reviewed as part of the pre-operative evaluation. [facility] Past Medical History Medical History GERD (gastroesophageal reflux disease) Gout Seizure in childhood Chronic narcotic use She reports that she has not had chronic narcotic since he October 2020 Chronic pain Depression Anxiety Hypercholesterolemia Obesity History of neck problems History of back problems Hypertension Surgical History Surgical History Arthritis of carpometacarpal (CMC) joint of right thumb Right thumb CMC suspension arthroplasty April 25, 2021 History of pelvic surgery 2017- Dr. Orourke History of shoulder surgery Left-2014 [facility] History of knee replacement 2005 L TKA- Dr. Dutton History of cholecystectomy 2006 History of appendectomy 1968- [facility] History of section 1987,1988 Family History Family History Mother Family history of osteoarthritis Family history of malignant neoplasm of breast in first degree relative Sibling Family history of diabetes mellitus in first degree relative Father Family history of heart disease in male family member before age 55 Hypertension Social History Social History Social History: She lives with her of 41 years and her son. She has total of 2 sons and 1 daughter. 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 Code status: Full code Surrogate decision maker: Smoking status: Never smoker Second hand tobacco smoke exposure: Yes Alcohol intake: never Alcohol use details: VERY RARE Substance use: current Substance use type: marijuana and painkillers Other substance usage details: Nightly to help sleep oral,Smoke it daily, Med marijuana Card, vicoden prn Last use: 04/19/21 Do You Feel Safe in your Home?: Yes Lack of Transportation: No Lack of Food: Never True Current Housing: I Have Housing Concerned About Future Housing: No Difficulty Paying Gas/Electric Bills: No Difficulty Paying for Meds: No Currently Unemployed: No Education: Master's Degree or Higher Difficulty w/ Childcare or Family Care: No Living arrangements: with family Additional living arrangements comments: and son Occupation/Education: retired Spiritual care concerns: Yes Anes - Eval Final PreProcedure Day of Procedure 04/07/25 10:41 Patient weight: obese Heart: regular rate and rhythm Lungs: clear to auscultation Airway: Mallampati scale class II Neurological: alert and oriented Last oral intake: >/= 8 hours ASA classification: III Emergent: no Anesthetic plan: proceed Anesthesia type and monitoring: general GIVS and standard monitoring Results Review: All pre-operative results and documents have been reviewed as part of the pre-operative evaluation. Informed Consent: The patient's anesthetic plan and its attendant risks and benefits were discussed with the patient/family/POA. Questions were solicited and answers provided to the satisfaction of the patient/family/POA.
--- NOTE | 2025-04-07 10:58 | WPDANESPNB ---
Anes - Peripheral Nerve Block Date/Time: 04/07/25 10:58 I have discussed with the patient/family/POA the placement of a peripheral nerve block for post-operative pain management, including associated risks, benefits, complications, and side effects. Alternative methods of post-operative analgesia were detailed. Questions were solicited and answers provided to the satisfaction of the patient/family/POA. Time-Out: A pre-procedural Time-Out was completed immediately before starting the procedure and confirmed: Patient Identification, Site, Procedure, Patient Position and the Availability of Requisite Equipment. Clinical Indications: Acute post-operative pain management requested by the operative surgeon. Nerve Block Insertion Note Anes-nerve block: interscalene right Patient position: supine Skin prep: chlorhexidine Needle: 22 gauge, stimulating, insulated echogenic needle. Needle length: 50 mm Technique: ultrasound Injectate: bupivacaine 0.5% with epi 5 mcg/ml (20cc- no epi) Observations: tolerated well Complications: none Procedure start time:: 1016 Procedure end time:: 1019
[2025-04-07] MEDS: SODIUM CHLORIDE 0.9% IV 38.7 ML, ROPivacaine HCL 1% 200 MG, KETOROLAC INJ (*BKC) 15 MG,... INFILTRATE (11:00)
[2025-04-07] MEDS: VANCOMYCIN HCL 1,000 MG VIAL 1000 MG TOPICAL (11:01)
--- NOTE | 2025-04-07 14:05 | PC.NURSE ---
This patient, Jodie Valentin, was admitted to 3 [facility] Surg Room 319-01 at 1405. Patient/family oriented to hospital policies and general routines including ID bracelet, bed and alarms, visiting hours, pain management, procedures, bathroom and other care routines, personal items, smoking policy, room service/diet, and visiting hours. Information on how to activate the Rapid Response Team has been discussed. Patient/Family are encouraged to report perceived risks to care and to ask questions if they do not understand what they are told or what they should do.
--- NOTE | 2025-04-07 14:33 | P.OP_ITS ---
Procedure Note - Detailed Date of Procedure 04/07/25 Pre-op Diagnosis Rheumatoid arthritis right shoulder. Post-op Diagnosis Same Procedure Performed Reverse total shoulder arthroplasty, right Surgeon Ha Ospina MD Anesthesia General and Regional (Interscalene block.) Findings Severe inflammatory arthritis. Large effusion and moderate proliferative synovium. Significant osteophytes both on the humerus and glenoid. 20? retroversion and 5? superior inclination, corrected with the 15 degree augment a nd asymmetric reaming. Good bone quality. Description of Procedure The patient was given an interscalene block in the preoperative area. Preoperative antibiotics were given. The patient was transferred to the operating room and a general anesthetic was administered. The beach chair position was used at 45 degrees. All bony prominences were padded. The head was carefully stabilized on the [facility] bolt header. A sterile prep and drape was performed in the usual manner with ChloraPrep. A longitudinal incision was created at the anterior shoulder just lateral to the deltopectoral interval. Careful dissection was performed to expose the interval and protect the cephalic vein. The vein was suture ligated. Anterior circumflex vessel branches were suture ligated. The biceps was tenodesed. A subscapularis tenotomy was performed. The inferior capsule was released, exposing the humeral head. Osteophytes were removed. Care was taken to stay on bone to protect the axillary nerve. The neck anteversion and inclination were carefully assessed. Version was between 20? and 30?. The anatomic head cut was taken with the oscillating saw. The cut protector was placed, and attention was turned to the glenoid. Retractors were placed. Releases were carried out for exposure. The subscapularis was mobilized, the inferior capsule and long head of triceps released, and the superior and middle glenohumeral ligaments released as well. Labral tissue was resected as needed. Version and inclination were corrected according to preoperative templating. The sizing template was used to assess the baseplate position low on the glenoid, with an approximate 20 degrees corrections of retroversion and 5 degrees of inclination. A guide pin was placed. Minimal reaming was used to accomplish a flat surface without violating the subchondral bone. The boss was drilled, and the real component was impacted into position. The central compression screw was placed. Supplemental locking screws were placed superiorly, and inferiorly. The glenosphere was impacted into the taper. Attention was turned to the humerus. The guide pin was placed, central drilling performed, and the broach trial inserted. The proximal humerus was reamed for the inset component. The humeral components were trialed. The real humeral stem, tray, and insert were impacted into position. The shoulder was copiously irrigated periodically with pulsatile lavage. The shoulder was reduced and stability confirmed. 1 gram of Vancomycin powder was placed in the joint. The remaining tissue was closed with 2-0 Vicryl, 3-0 Stratafix and 4-0 Stratafix, and steri-strips. A sterile silver occlusive dressing and shoulder immobilizer were placed. The patient was transferred to the recovery room. Implants Shoulder Innovations reverse TSA size 1 stem. +0 polyethylene insert. 15 augmented baseplate. 33 + 3 mm glenosphere. Estimated Blood Loss 100 Drains No Pathology None sent Complications No immediate complications Condition Stable Disposition PACU [facility] Billing Surgery - Charge Forward: Surgery Billing
[2025-04-07] MEDS: HYDROmorphone HCL INJ (*CRX) 1 MG/ML SYR 0.5 MG IV PUSH ×2 (14:55→18:54)
[2025-04-07] MEDS: ACETAMINOPHEN 325 MG TABLET 650 MG PO ×2 (14:57→18:45)
[2025-04-07] MEDS: PANTOPRAZOLE 40 MG TABLET PO (18:45)
[2025-04-07] MEDS: SENNA/DOCUSATE SODIUM TABLET 2 TAB PO (18:45)
[2025-04-07] MEDS: ATORVASTATIN 10 MG TABLET PO (20:28)
[2025-04-07] MEDS: SERTRALINE HCL 50 MG TABLET 100 MG PO (20:28)
[2025-04-07] MEDS: FAMOTIDINE 20 MG TABLET PO (20:29)
[2025-04-07] MEDS: ASPIRIN 81 MG ENTERIC TABLET PO (20:29)
[2025-04-07] MEDS: HYDROmorphone HCL INJ (*CRX) 1 MG/ML SYR IV PUSH (23:01)
[2025-04-08] MEDS: ACETAMINOPHEN 325 MG TABLET 650 MG PO ×2 (01:01→05:07)
[2025-04-08] MEDS: ceFAZolin 2 GM in SODIUM CHLORIDE 0.9% IV 50 ML 100 ML IVPB ×2 (01:02→09:15)
[2025-04-08 03:07] VITALS: BP 101/62; PULSE 65; RESP 18; TEMP 36.3; O2SAT 95
[2025-04-08] MEDS: oxyCODONE/ACETAMINOPHEN (*CRX) 10-325 MG TABLET 1 TAB PO (05:07)
[2025-04-08 06:09] LABS: Hematocrit 34.2 % (37.0-47.0); Hemoglobin 10.8 g/dL (12.0-15.0); Immature Granulocyte Percent A 0.5 % (0-0.5); Lymphocytes Absolute Auto 0.51 K/mm3 (0.9-3.2); Mean Corpuscular HGB Conc 31.6 g/dl (32-36); Mean Corpuscular Hemoglobin 29.5 pg (26-34); Mean Corpuscular Volume 93.4 fl (80-100); Nucleated Red Blood Cells Absolute Auto 0.000 K/mm3 (0.0-0.012); Nucleated Red Blood Cells Perc 0.0 % (0.0-0.2); Platelet Count Result 171 k/mm3 (150-375); Red Blood Count 3.66 M/mm3 (4.2-5.4); White Blood Count 11.1 K/mm3 (4.5-10.0)
[2025-04-08 06:34] LABS: Anion Gap 6 mmol/L (4-12); Blood Urea Nitrogen 18 mg/dL (7-17); Calcium 8.6 mg/dL (8.4-10.2); Carbon Dioxide 27 mmol/L (22-30); Chloride 102 mmol/L (98-107); Estimated CRCL calculation 39 ml/min; Estimated Glomerular Filt Rate 41; Glucose 108 mg/dL (65-110); Potassium 4.4 mmol/L (3.4-5.0); Sodium 135 mmol/L (137-145)
[2025-04-08 08:00] VITALS: BP 118/78; PULSE 64; RESP 16; TEMP 35.8; O2SAT 94
[2025-04-08] MEDS: FAMOTIDINE 20 MG TABLET PO (09:12)
[2025-04-08] MEDS: PANTOPRAZOLE 40 MG TABLET PO (09:13)
[2025-04-08] MEDS: ASPIRIN 81 MG ENTERIC TABLET PO (09:13)
== END 2025-04-08 10:36 | disposition home or self-care (01) ==
LOC: ANHSURGERY 10:02 → ANH3MEDSUR 14:00
PROVIDERS: Physician Assistant Surgical; PCP Internal Medicine; Visit Provider Orthopaedic Surgery
PROC: (CPT 23472; principal; 2025-04-07 10:30)
DX: M19.011 Primary osteoarthritis, right shoulder (principal); M25.711 Osteophyte, right shoulder; M25.411 Effusion, right shoulder; M06.811 Other specified rheumatoid arthritis, right shoulder; G89.18 Other acute postprocedural pain; I10 Essential (primary) hypertension; E78.00 Pure hypercholesterolemia, unspecified; F32.A Depression, unspecified; F41.9 Anxiety disorder, unspecified; F12.90 Cannabis use, unspecified, uncomplicated; G89.29 Other chronic pain; E66.9 Obesity, unspecified; Z68.33 Body mass index [BMI] 33.0-33.9, adult; Z79.891 Long term (current) use of opiate analgesic; Z79.51 Long term (current) use of inhaled steroids; Z79.82 Long term (current) use of aspirin; Z98.890 Other specified postprocedural states; Z90.49 Acquired absence of other specified parts of digestive tract; Z80.3 Family history of malignant neoplasm of breast; Z82.49 Family history of ischemic heart disease and other diseases of the circulatory system
CPT/HCPCS: 64415; 23472; 36415; 73030; 80048; 85025; 86850; 86900; 86901; 97110; 97161; 97165; 97530; J0690; A4565; A9270; C1776; J0166; J1100; J1171; J1885; J2250; J2405; J2704; J2795; J3010; J3290; J3373; J7120; J7512